=== PATIENT | female | born 1930 | race Caucasian/White ===

== ENCOUNTER → 2016-09-20 | Outpatient (CLI) | payer MEDICARE, BC ==
[~2016-09-20] MED LIST: ALPR-138 PO; AMBI10TA PO; ATEN1TAB74 PO; FIORINAL2 PO; K-TA10TA5 PO; LEVO88TA2 PO; SERT-129 PO
[2016-09-20 10:51] LABS: HEMATOCRIT 35.2 % (35.0-46.0); MEAN CELL VOLUME 93.1 FL (80.0-100.0); MEAN CORPUSCULAR HEMOGLOBIN 30.9 PG (27.0-34.0); MEAN CORPUSCULAR HGB CONC 33.2 % (32.0-36.0); PLATELET COUNT 244 TH/MM3 (150-450); RED BLOOD COUNT 3.78 MIL/MM3 (4.00-5.30); RED CELL DISTRIBUTION WIDTH 14.7 % (11.6-17.2); REVIEW FLAG FINAL; WHITE BLOOD COUNT 4.6 TH/MM3 (4.0-11.0)
[2016-09-20 11:35] LABS: ALKALINE PHOSPHATASE 62 U/L (45-117); ALT (GPT) 13 U/L (10-53); ANION GAP 6 MEQ/L (5-15); AST (GOT) 10 U/L (15-37); BICARBONATE 29.5 MEQ/L (21.0-32.0); BLOOD UREA NITROGEN 22 MG/DL (7-18); CHLORIDE 106 MEQ/L (98-107); FREE T4 0.93 NG/DL (0.76-1.46); GLOMERULAR FILTRATION RATE 47 ML/MIN (>89); GLUCOSE,FASTING 92 MG/DL (74-99); HDL CHOLESTEROL 82.5 MG/DL (40.0-60.0); LDL CHOLESTEROL 105 MG/DL (0-99); LDL CHOLESTEROL DIRECT 113 MG/DL (0-99); POTASSIUM 4.5 MEQ/L (3.5-5.1); SODIUM (NA) 141 MEQ/L (136-145); TOTAL BILIRUBIN ADULT 0.2 MG/DL (0.2-1.0)
== END ==
LOC: PLAB 07:41
PROVIDERS: ATTEND Family Medicine
DX: E78.4 Other hyperlipidemia (principal); I10 Essential (primary) hypertension; E03.8 Other specified hypothyroidism
CPT/HCPCS: 36415; 80053; 80061; 83721; 84439; 84443; 85027

== ENCOUNTER → 2016-12-02 | Outpatient (CLI) | payer MEDICARE, BC ==
[2016-12-02 13:22] LABS: HEMATOCRIT 36.4 % (35.0-46.0); MEAN CELL VOLUME 93.2 FL (80.0-100.0); MEAN CORPUSCULAR HGB CONC 32.2 % (32.0-36.0); PLATELET COUNT 279 TH/MM3 (150-450); RED BLOOD COUNT 3.91 MIL/MM3 (4.00-5.30); RED CELL DISTRIBUTION WIDTH 13.6 % (11.6-17.2); REVIEW FLAG FINAL; WHITE BLOOD COUNT 6.6 TH/MM3 (4.0-11.0)
[2016-12-02 13:49] LABS: WESTERGREN SEDIMENTATION RATE 35 mm/hr (0-30)
[2016-12-02 13:51] LABS: ANION GAP 7 MEQ/L (5-15); AST (GOT) 11 U/L (15-37); BICARBONATE 27.6 MEQ/L (21.0-32.0); BLOOD UREA NITROGEN 15 MG/DL (7-18); CHLORIDE 104 MEQ/L (98-107); GLOMERULAR FILTRATION RATE 72 ML/MIN (>89); GLUCOSE,FASTING 90 MG/DL (74-99); POTASSIUM 4.2 MEQ/L (3.5-5.1); SODIUM (NA) 139 MEQ/L (136-145)
[2016-12-02 14:03] LABS: ALKALINE PHOSPHATASE 75 U/L (45-117); ALT (GPT) 12 U/L (10-53); FREE T4 1.03 NG/DL (0.76-1.46); HDL CHOLESTEROL 79.5 MG/DL (40.0-60.0); LDL CHOLESTEROL 101 MG/DL (0-99); LDL CHOLESTEROL DIRECT 101 MG/DL (0-99); TOTAL BILIRUBIN ADULT 0.4 MG/DL (0.2-1.0)
[2016-12-02 17:18] LABS: HEMOGLOBIN A1a 0.8 %; HEMOGLOBIN A1b 1.6 %; HEMOGLOBIN LA1C 2.2 %; HEMOGLOBIN P3 5.5 %
== END ==
LOC: PLAB 11:12
PROVIDERS: ATTEND Family Medicine
DX: E78.2 Mixed hyperlipidemia (principal); I12.9 Hypertensive chronic kidney disease with stage 1 through stage 4 chronic kidney disease, or unspecified chronic kidney disease; N18.3 Chronic kidney disease, stage 3 (moderate); E03.8 Other specified hypothyroidism; R73.01 Impaired fasting glucose; M35.9 Systemic involvement of connective tissue, unspecified
CPT/HCPCS: 36415; 80053; 80061; 83036; 83721; 84439; 84443; 85027; 85652

== ENCOUNTER → 2017-02-02 | Outpatient (CLI) | payer MEDICARE, BC | LOC: PLAB 10:06 | PROVIDERS: ATTEND Family Medicine | DX: M35.3 Polymyalgia rheumatica (principal) | CPT/HCPCS: 36415; 85652; 86140 ==

== ENCOUNTER → 2017-02-17 | Outpatient (CLI) | payer MEDICARE, BC | LOC: PLAB 08:29 | PROVIDERS: ATTEND Family Medicine | DX: M35.5 Multifocal fibrosclerosis (principal) | CPT/HCPCS: 36415; 86140 ==

== ENCOUNTER → 2017-04-04 | Outpatient (CLI) | payer MEDICARE, BC | LOC: PLAB 10:03 | PROVIDERS: ATTEND Family Medicine | DX: M35.3 Polymyalgia rheumatica (principal) | CPT/HCPCS: 36415; 86140 ==

== ENCOUNTER → 2017-05-04 | Outpatient (CLI) | payer MEDICARE, BC ==
[2017-05-04 13:48] LABS: HEMATOCRIT 38.1 % (35.0-46.0); HEMOGLOBIN 12.9 GM/DL (11.6-15.3); MEAN CELL VOLUME 92.1 FL (80.0-100.0); MEAN CORPUSCULAR HGB CONC 33.7 % (32.0-36.0); MEAN PLATELET VOLUME 8.5 FL (7.0-11.0); PLATELET COUNT 280 TH/MM3 (150-450); RED BLOOD COUNT 4.14 MIL/MM3 (4.00-5.30); RED CELL DISTRIBUTION WIDTH 15.8 % (11.6-17.2); WHITE BLOOD COUNT 5.3 TH/MM3 (4.0-11.0)
[2017-05-04 13:56] LABS: ALBUMIN 3.4 GM/DL (3.4-5.0); AST (GOT) 17 U/L (15-37); BICARBONATE 27.9 MEQ/L (21.0-32.0); BLOOD UREA NITROGEN 23 MG/DL (7-18); CALCIUM 9.5 MG/DL (8.5-10.1); CHLORIDE 102 MEQ/L (98-107); CREATININE 0.86 MG/DL (0.50-1.00); GLOMERULAR FILTRATION RATE 62 ML/MIN (>89); GLUCOSE,FASTING 89 MG/DL (74-99); SODIUM (NA) 137 MEQ/L (136-145)
[2017-05-04 13:57] LABS: CHOLESTEROL 227 MG/DL (120-200)
[2017-05-04 14:07] LABS: ALKALINE PHOSPHATASE 60 U/L (45-117); ALT (GPT) 17 U/L (10-53); CHOLESTEROL/ HDL RATIO 2.44 RATIO; FREE T4 1.09 NG/DL (0.76-1.46); HDL CHOLESTEROL 92.8 MG/DL (40.0-60.0); LDL CHOLESTEROL 121 MG/DL (0-99); LDL CHOLESTEROL DIRECT 120 MG/DL (0-99); TOTAL BILIRUBIN ADULT 0.2 MG/DL (0.2-1.0); TOTAL PROTEIN 7.2 GM/DL (6.4-8.2); TRIGLYCERIDES 67 MG/DL (42-150)
== END ==
LOC: PLAB 09:02
PROVIDERS: ATTEND Family Medicine
DX: E78.2 Mixed hyperlipidemia (principal); I10 Essential (primary) hypertension; E03.8 Other specified hypothyroidism; R73.01 Impaired fasting glucose; M35.3 Polymyalgia rheumatica
CPT/HCPCS: 36415; 80053; 80061; 83036; 83721; 84439; 84443; 85027; 86140

== ENCOUNTER → 2017-07-21 | Outpatient (CLI) | payer MEDICARE, BC ==
[2017-07-21 13:41] LABS: HEMATOCRIT 40.4 % (35.0-46.0); HEMOGLOBIN 13.2 GM/DL (11.6-15.3); MEAN CELL VOLUME 94.2 FL (80.0-100.0); MEAN CORPUSCULAR HEMOGLOBIN 30.6 PG (27.0-34.0); MEAN CORPUSCULAR HGB CONC 32.5 % (32.0-36.0); MEAN PLATELET VOLUME 8.3 FL (7.0-11.0); PLATELET COUNT 311 TH/MM3 (150-450); RED BLOOD COUNT 4.29 MIL/MM3 (4.00-5.30); RED CELL DISTRIBUTION WIDTH 15.3 % (11.6-17.2); WHITE BLOOD COUNT 7.9 TH/MM3 (4.0-11.0)
[2017-07-21 13:49] LABS: ALBUMIN 3.7 GM/DL (3.4-5.0); AST (GOT) 16 U/L (15-37); BICARBONATE 29.7 MEQ/L (21.0-32.0); BLOOD UREA NITROGEN 28 MG/DL (7-18); CALCIUM 9.3 MG/DL (8.5-10.1); CHLORIDE 104 MEQ/L (98-107); CREATININE 1.13 MG/DL (0.50-1.00); GLOMERULAR FILTRATION RATE 45 ML/MIN (>89); GLUCOSE,FASTING 83 MG/DL (74-99); SODIUM (NA) 140 MEQ/L (136-145)
[2017-07-21 13:58] LABS: ALKALINE PHOSPHATASE 89 U/L (45-117); ALT (GPT) 18 U/L (10-53); C-REACTIVE PROTEIN 0.68 MG/DL (0.00-0.30); CHOLESTEROL 228 MG/DL (120-200); CHOLESTEROL/ HDL RATIO 2.75 RATIO; FREE T4 1.12 NG/DL (0.76-1.46); HDL CHOLESTEROL 82.8 MG/DL (40.0-60.0); LDL CHOLESTEROL 131 MG/DL (0-99); LDL CHOLESTEROL DIRECT 133 MG/DL (0-99); TOTAL BILIRUBIN ADULT 0.5 MG/DL (0.2-1.0); TOTAL PROTEIN 7.5 GM/DL (6.4-8.2); TRIGLYCERIDES 72 MG/DL (42-150)
== END ==
LOC: PLAB 09:04
PROVIDERS: ATTEND Family Medicine
DX: E78.2 Mixed hyperlipidemia (principal); I10 Essential (primary) hypertension; E03.8 Other specified hypothyroidism; M35.3 Polymyalgia rheumatica
CPT/HCPCS: 36415; 80053; 80061; 83721; 84439; 84443; 85027; 86140

== ENCOUNTER 2017-08-31 20:37 | Inpatient (IN) | payer MEDICARE, BC ==
[2017-08-31 20:40] VITALS: BP 164/79; PULSE 95; RESP 20; TEMP 99.7; O2SAT 97
[2017-08-31] MEDS ORDERED: SODIUM CHLOR 0.9% 1000 ML INJ 1,000 ML IV SCH (20:45)
--- NOTE | 2017-08-31 20:57 | PD ---
HPI Chief Complaint: Fall Time Seen by Provider: 20:48 Travel History International Travel<30 days: No Contact w/Intl Traveler<30days: No Traveled to known affect area: No History of Present Illness HPI 87-year-old female presents to the emergency department by EMS transport from home for evaluation of possible head injury neck injury hip injury status post unwitnessed fall at some unknown time as last seen normal last evening prior to being found by her grandson who is a rotary surface grinder die cast technician this evening. Upon initial evaluation by bartolome patient's GCS was 14 which is atypical for her she typically is very alert oriented to person place time and events with a GCS of 15. Per rotary surface grinder evaluation patient was noted upon their arrival to have a room air O2 saturation of 80% which only increased to 88% on 2 L and was placed on 6 L to improve her saturations to 93%. No history of cardiac disease or pulmonary disease. Unknown downtime patient was found on her left side per report and due to fall history placed in cervical collar but not based on long board. Patient has history of migraine hypertension dyslipidemia and hypothyroidism. Patient rates overall pain as moderate. Patient denies head pain chest pain or abdominal pain. Per rotary surface grinder report patient was found in sinus rhythm with mild tachycardia. Per rotary surface grinder report grandson related patient has had recent back injury within the past 2 months and was placed on pain medication which when reviewing the medicine bottle only identified a few of the tablets to be missing. PFSH Past Medical History Narrative Medical Arthritis depression dyslipidemia hypertension hypothyroidism Arthritis: Yes Asthma: No Autoimmune Disease: No Blood Disorders: No Depression: Yes Heart Rhythm Problems: No Cancer: No Cardiovascular Problems: No High Cholesterol: Yes Chest Pain: No Congestive Heart Failure: No COPD: No Cerebrovascular Accident: No Diabetes: No Diminished Hearing: No Endocrine: Yes (THYROIDECTOMY) Gastrointestinal Disorders: Yes GERD: Yes Genitourinary: No Headaches: Yes Hepatitis: No Hiatal Hernia: Yes (GERD) Hypertension: Yes Immune Disorder: No Musculoskeletal: Yes Neurologic: Yes Psychiatric: Yes Respiratory: No Immunizations Current: Yes Myocardial Infarction: No Seizures: No Shingles: Yes Thyroid Disease: Yes Ulcer: Yes (GASTRIC) Menopausal: Yes Past Surgical History Abdominal Surgery: Yes (HERNIA UMBILICAL) AICD: No Body Medical Devices: INTER STEM Endocrine Surgery: Yes (HEMITHYROIDECTOMY) Eye Surgery: Yes (MARIA ANTONIA. CATARACAT EXTRACT.) Genitourinary Surgery: Yes (bladder lift) Gynecologic Surgery: Yes (HYSTERECTOMY) Hysterectomy: Yes Joint Replacement: Yes (BILATERAL KNEE REPLACEMENT) Pacemaker: No Other Surgery: Yes (partial thyroid removed) Social History Alcohol Use: No Tobacco Use: No Substance Use: No Allergies-Medications (Allergen,Severity, Reaction): Uncoded Allergies: STATINS (Adverse Reaction, Severe, Nausea, muscle pain, 11/29/15) Reported Meds & Prescriptions Reported Meds & Active Scripts Active Reported Potassium Chloride ER (Potassium Chloride) 10 Meq Cap 10 Meq PO DAILY Ambien (Zolpidem Tartrate) 10 Mg Tab 10 Mg PO HS PRN Sertraline (Sertraline HCl) 100 Mg Tab 100 Mg PO DAILY Levothyroxine (Levothyroxine Sodium) 88 Mcg Tab 88 Mcg PO DAILY Atenolol 50 Mg Tab 50 Mg PO DAILY Tylenol-Codeine #4 (Acetaminophen-Codeine) 300-60 mg Tab 1 Tab PO Q4H PRN Xanax (Alprazolam) 0.25 Mg Tab 0.25 Mg PO HS PRN Review of Systems ROS Limitations: Poor Historian Except as stated in HPI: all other systems reviewed are Neg General / Constitutional: No: Fever HENT: No: Congestion Cardiovascular: No: Chest Pain or Discomfort Respiratory: No: Shortness of Breath Gastrointestinal: No: Abdominal Pain Genitourinary: No: Flank Pain Musculoskeletal: Positive: Pain (left hip and mid back) Skin: No Rash Neurologic: Positive: Weakness Psychiatric: No: Anxiety Hematologic/Lymphatic: No: Easy Bruising Physical Exam Narrative GENERAL: Well-developed elderly female in no acute distress no respiratory distress cervical collar in place; GCS 15 SKIN: Warm and dry. HEAD: Atraumatic. Normocephalic. EYES: Pupils equal and round. No scleral icterus. No injection or drainage. ENT: No nasal bleeding or discharge. Mucous membranes pink and moist. NECK: Trachea midline. No JVD. CARDIOVASCULAR: Regular rate and rhythm. RESPIRATORY: No accessory muscle use. Clear to auscultation. Breath sounds equal bilaterally. GASTROINTESTINAL: Abdomen soft, non-tender, nondistended. Hepatic and splenic margins not palpable. MUSCULOSKELETAL: Extremities without clubbing, cyanosis, or edema. No obvious deformities. Tenderness left hip. No limb length discrepancy. Bilateral dorsalis pedis pulses 2++=. Ecchymosis left upper arm, distally neurovascularly intact, radial pulse 2+, capillary refill less than 2 seconds. NEUROLOGICAL: Awake and alert. No obvious cranial nerve deficits. Motor grossly within normal limits. Five out of 5 muscle strength in the arms and legs. Normal speech. PSYCHIATRIC: Appropriate mood and affect; insight and judgment normal. Data Data Last Documented VS Vital Signs Date Time Temp Pulse Resp B/P (MAP) Pulse Ox O2 Delivery O2 Flow Rate FiO2 08/31/17 23:22 88 18 169/81 (110) 96 Nasal Cannula 3.00 08/31/17 20:40 99.7 Orders Orders Electrocardiogram (08/31/17 20:45) Ammonia (08/31/17 20:45) Complete Blood Count With Diff (08/31/17 20:45) Comprehensive Metabolic Panel (08/31/17 20:45) Creatine Kinase (Cpk) (08/31/17 20:45) Prothrombin Time / Inr (Pt) (08/31/17 20:45) Act Partial Throm Time (Ptt) (08/31/17 20:45) Troponin I (08/31/17 20:45) Thyroid Stimulating Hormone (08/31/17 20:45) Urinalysis - C+S If Indicated (08/31/17 20:45) Lactic Acid Sepsis Protocol (08/31/17 20:45) Blood Culture (08/31/17 20:45) Chest, Single Ap (08/31/17 20:45) Ct Brain W/O Iv Contrast(Rout) (08/31/17 20:45) Sodium Chlor 0.9% 1000 Ml Inj (Ns 1000 M (08/31/17 20:45) Ct Cerv Spine W/O Contrast (08/31/17 ) Femur (Ap & Lat/2vws) (08/31/17 ) Us Leg Venous Doppler (08/31/17 ) Spine, Thoracic - Lateral Only (08/31/17 ) D-Dimer (08/31/17 20:48) Pelvis, Ap Only (Routine) (08/31/17 ) CKMB (08/31/17 20:50) CKMB% (08/31/17 20:50) Cath For Specimen (08/31/17 22:23) Sodium Chlorid 0.9% 500 Ml Inj (Ns 500 M (08/31/17 22:30) Cefepime Inj (Maxipime Inj) (08/31/17 22:30) Myoglobin, Urine (08/31/17 22:27) Urinary Catheter Insert/Apply (08/31/17 23:27) Sodium Chlorid 0.9% 500 Ml Inj (Ns 500 M (08/31/17 23:30) Atenolol (Tenormin) (09/01/17 09:00) Levothyroxine (Synthroid) (09/01/17 07:00) Admit Order (Ed Use Only) (08/31/17 ) Production Tester / Telemetry REYNA.Q8H (08/31/17 23:44) Diet Heart Healthy (09/01/17 Breakfast) Activity Oob With Assistance (08/31/17 23:44) Notify Dr: Other (08/31/17 23:44) Magnesium (Mg) (08/31/17 20:50) Labs Laboratory Tests Test 08/31/17 20:50 White Blood Count 14.9 TH/MM3 Red Blood Count 4.03 MIL/MM3 Hemoglobin 12.7 GM/DL Hematocrit 37.5 % Mean Corpuscular Volume 93.1 FL Mean Corpuscular Hemoglobin 31.5 PG Mean Corpuscular Hemoglobin Concent 33.9 % Red Cell Distribution Width 14.7 % Platelet Count 258 TH/MM3 Mean Platelet Volume 8.3 FL Neutrophils (%) (Auto) 88.9 % Lymphocytes (%) (Auto) 2.1 % Monocytes (%) (Auto) 8.5 % Eosinophils (%) (Auto) 0.0 % Basophils (%) (Auto) 0.5 % Neutrophils # (Auto) 13.2 TH/MM3 Lymphocytes # (Auto) 0.3 TH/MM3 Monocytes # (Auto) 1.3 TH/MM3 Eosinophils # (Auto) 0.0 TH/MM3 Basophils # (Auto) 0.1 TH/MM3 CBC Comment AUTO DIFF Differential Total Cells Counted 100 Neutrophils % (Manual) 84 % Band Neutrophils % 7 % Lymphocytes % 1 % Monocytes % 5 % Basophils % 1 % Neutrophils # (Manual) 13.9 TH/MM3 Metamyelocytes 1 % Promyelocytes 1 % Differential Comment FINAL DIFF MANUAL Toxic Granulation 1+ Platelet Estimate NORMAL Platelet Morphology Comment NORMAL Prothrombin Time 13.6 SEC Prothromb Time International Ratio 1.3 RATIO Activated Partial Thromboplast Time 27.3 SEC D-Dimer Quantitative (PE/DVT) 29.67 MG/L FEU Blood Urea Nitrogen 25 MG/DL Creatinine 0.85 MG/DL Random Glucose 141 MG/DL Total Protein 7.0 GM/DL Albumin 3.3 GM/DL Calcium Level 9.3 MG/DL Magnesium Level 1.9 MG/DL Alkaline Phosphatase 255 U/L Aspartate Amino Transf (AST/SGOT) 133 U/L Alanine Aminotransferase (ALT/SGPT) 103 U/L Total Bilirubin 0.9 MG/DL Sodium Level 136 MEQ/L Potassium Level 3.9 MEQ/L Chloride Level 101 MEQ/L Carbon Dioxide Level 27.9 MEQ/L Anion Gap 7 MEQ/L Estimat Glomerular Filtration Rate 63 ML/MIN Lactic Acid Level 1.9 mmol/L Ammonia LESS THAN 10 MCMOL/L Total Creatine Kinase 3401 U/L Creatine Kinase MB 39.0 NG/ML Creatine Kinase MB % 1.1 % Troponin I 0.04 NG/ML Thyroid Stimulating Hormone 3rd Gen 0.896 uIU/ML MDM Medical Decision Making Medical Screen Exam Complete: Yes Emergency Medical Condition: Yes Medical Record Reviewed: Yes Interpretation(s) EKG normal sinus rhythm rate 95 artifact present occasional PAC left axis deviation and intraventricular conduction delay mild ST segment depression septally V1 V2 no acute ST elevation Last Impressions Head CT [id number]/31/[id number] Signed Impressions: Service Date/Time: Thursday, August 31, 2017 21:14 - CONCLUSION: 1. Mild periventricular and subcortical white matter small vessel ischemic changes bilaterally. 2. 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 3. Mild diffuse atrophy. 4. No acute infarct, acute hemorrhage, mass effect or extra axial fluid collections. Maximino Sharif MD Chest X-Ray [id number]/31/[id number] Signed Impressions: Service Date/Time: Thursday, August 31, 2017 20:58 - CONCLUSION: No acute disease. Maximino Sharif MD Thoracic Spine X-Ray 08/31/17 0000 Signed Impressions: Service Date/Time: Thursday, August 31, 2017 21:06 - CONCLUSION: No definite compression fracture involving thoracic spine. Mild compression deformity involving an upper lumbar vertebral body of indeterminate age. Degenerative changes of the thoracic spine. Maximino Sharif MD Pelvis X-Ray 08/31/17 0000 Signed Impressions: Service Date/Time: Thursday, August 31, 2017 21:01 - CONCLUSION: Acute fractures along the left superior and inferior pubic rami. Maximino Sharif MD Lower Extremity Ultrasound 08/31/17 0000 Signed Impressions: Service Date/Time: Thursday, August 31, 2017 22:08 - CONCLUSION: No evidence of deep venous thrombosis within the left lower extremity. Maximino Sharif MD Femur X-Ray 08/31/17 0000 Signed Impressions: Service Date/Time: Thursday, August 31, 2017 21:02 - CONCLUSION: Acute fractures involving left superior and inferior pubic rami. Maximino Sharif MD Cervical Spine CT 08/31/17 0000 Signed Impressions: Service Date/Time: Thursday, August 31, 2017 21:14 - CONCLUSION: No acute fracture or prevertebral soft tissue swelling. Moderate bilateral foraminal narrowing at C3-4, C4-5 and C5-6 and mild bilateral foraminal narrowing at C6- 7. Diffuse cervical spondylosis. Biapical fibrotic scarring. Maximino Sharif MD CBC & BMP Diagram 08/31/17 20:50 Total Protein 7.0, Albumin 3.3 L, Calcium Level 9.3, Magnesium Level 1.9, Alkaline Phosphatase 255 H, Aspartate Amino Transf (AST/SGOT) 133 H, Alanine Aminotransferase (ALT/SGPT) 103 H, Total Bilirubin 0.9 CT pulmonary angiogram: no PE, pulmonary HTN findings Differential Diagnosis Fall, syncope, seizure, arrhythmia, PE, ACS, MO, CVA, ICH, sepsis, UTI, pneumonia, fracture, contusion sprain strain, anemia Narrative Course Patient placed on case monitor IV access obtained specimens collected and sent for resulting CT brain noncontrast reveals no acute abnormality no bleed or skull fracture CT cervical spine reveals multiple levels of degenerative disc disease but no acute fracture or soft tissue swelling cervical collar removed Chest x-ray reveals no infiltrate no rib fracture no effusion no pneumothorax; pelvis x-ray reveals superior and inferior rami fractures on the left without acetabular or femur fracture CBC automated differential shows mild elevation of white count with 7% bands patient administered cefepime after blood cultures obtain lactic acid is not elevated remains 1.9 Metabolic panel is remarkable for normal creatinine and identified on cardiac enzymes to have a troponin I of 0.04 still within normal range however CK total is 3400 markedly elevated consistent with rhabdomyolysis Urinary catheter placed and no urine output therefore patient given boluses of normal saline and d-dimer remains pending we will pursue imaging study for PE in view of rotary surface grinder report of initial room air O2 saturation of 80% patient maintaining O2 saturation 96-97% on 3 L/min nasal cannula attempt to titrate to room air and assess saturations at that time. Physician Communication Physician Communication discussed with Dr Salcido --- Admit Diagnosis Primary Impression: Rhabdomyolysis Qualified Codes: T79.6XXA - Traumatic ischemia of muscle, initial encounter Additional Impressions: Pelvic fracture Qualified Codes: S32.512A - Fracture of superior rim of left pubis, initial encounter for closed fracture Hypoxemia Admitting Information Admitting Physician Requests: Admit Ariane Simmons MD Aug 31, 2017 20:57
[2017-08-31 21:20] LABS: AUTOMATED NEUTROPHIL # 13.2 TH/MM3 (1.8-7.7); BASOPHIL # 0.1 TH/MM3 (0-0.2); BASOPHIL % 0.5 % (0.0-2.0); HEMATOCRIT 37.5 % (35.0-46.0); HEMOGLOBIN 12.7 GM/DL (11.6-15.3); LYMPH % 2.1 % (9.0-44.0); LYMPHOCYTE # 0.3 TH/MM3 (1.0-4.8); MEAN CELL VOLUME 93.1 FL (80.0-100.0); MEAN CORPUSCULAR HEMOGLOBIN 31.5 PG (27.0-34.0); MEAN CORPUSCULAR HGB CONC 33.9 % (32.0-36.0); MEAN PLATELET VOLUME 8.3 FL (7.0-11.0); MONO % 8.5 % (0.0-8.0); MONOCYTE # 1.3 TH/MM3 (0-0.9); NEUT % 88.9 % (16.0-70.0); PLATELET COUNT 258 TH/MM3 (150-450); RED BLOOD COUNT 4.03 MIL/MM3 (4.00-5.30); RED CELL DISTRIBUTION WIDTH 14.7 % (11.6-17.2); WHITE BLOOD COUNT 14.9 TH/MM3 (4.0-11.0)
--- NOTE | 2017-08-31 21:24 | RADRPT ---
EXAM DATE/TIME: 08/31/2017 21:14 [facility] COMPARISON: No previous studies available for comparison. INDICATIONS : Patient fell, altered mental status. RADIATION DOSE: 32.99 CTDIvol (mGy) MEDICAL HISTORY : Hypertension. SURGICAL HISTORY : None. ENCOUNTER: Initial ACUITY: 1 day PAIN SCALE: 0/10 LOCATION: cranial TECHNIQUE: Multiple contiguous axial images were obtained of the head. Using automated exposure control and adj ustment of the mA and/or kV according to patient size, radiation dose was kept as low as reasonably a chievable to obtain optimal diagnostic quality images. DICOM format image data is available electro nically for review and comparison. FINDINGS: CEREBRUM: Mild periventricular and subcortical white matter small vessel ischemic changes are noted bilaterally . Mild diffuse atrophy is noted. An old infarct involving the left thalamus is noted. No acute infarc t, acute hemorrhage, midline shift or extra axial fluid collections are noted. POSTERIOR FOSSA: The cerebellum and brainstem are intact. The 4th ventricle is midline. The cerebellopontine angle i s unremarkable. EXTRACRANIAL: The visualized portion of the orbits is intact. SKULL: The calvaria is intact. No evidence of skull fracture. CONCLUSION: 1. Mild periventricular and subcortical white matter small vessel ischemic changes bilaterally. 2. 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 3. Mild diffuse atrophy. 4. No acute infarct, acute hemorrhage, mass effect or extra axial fluid collections. Maximino Sharif MD on August 31, 2017 at 21:19 Board Certified Radiologist. This report was verified electronically.
--- NOTE | 2017-08-31 21:28 | RADRPT ---
EXAM DATE/TIME: 08/31/2017 20:58 [facility] COMPARISON: No previous studies available for comparison. INDICATIONS : Pain post fall. MEDICAL HISTORY : Hypothyroidism. Hypertension. SURGICAL HISTORY : Thyroidectomy. Hysterectomy. ENCOUNTER: Initial ACUITY: 1 day PAIN SCORE: 9/10 LOCATION: chest. FINDINGS: A single view of the chest demonstrates the lungs to be symmetrically aerated without evidence of mas s, infiltrate or effusion. The cardiomediastinal contours are unremarkable. Osseous structures are intact. CONCLUSION: No acute disease. Maximino Sharif MD on August 31, 2017 at 21:27 Board Certified Radiologist. This report was verified electronically.
[2017-08-31 21:31] LABS: INTERNATIONAL NORMALIZED RATIO 1.3 RATIO; PROTHROMBIN TIME - PATIENT 13.6 SEC (9.8-11.6)
[2017-08-31 21:39] LABS: ALBUMIN 3.3 GM/DL (3.4-5.0); ALT (GPT) 103 U/L (10-53); AST (GOT) 133 U/L (15-37); BICARBONATE 27.9 MEQ/L (21.0-32.0); BLOOD UREA NITROGEN 25 MG/DL (7-18); CALCIUM 9.3 MG/DL (8.5-10.1); CHLORIDE 101 MEQ/L (98-107); CREATININE 0.85 MG/DL (0.50-1.00); GLOMERULAR FILTRATION RATE 63 ML/MIN (>89); GLUCOSE,RANDOM 141 MG/DL (74-106); SODIUM (NA) 136 MEQ/L (136-145)
--- NOTE | 2017-08-31 21:40 | RADRPT ---
EXAM DATE/TIME: 08/31/2017 21:01 [facility] COMPARISON: No previous studies available for comparison. INDICATIONS : Pelvis pain post fall. MEDICAL HISTORY : Hypothyroidism. Hypertension. SURGICAL HISTORY : Thyroidectomy. Hysterectomy. Pain stimulator. ENCOUNTER: Initial ACUITY: 1 day PAIN SCORE: 9/10 LOCATION: pelvis. FINDINGS: Acute fractures involving the left superior and inferior pubic rami are noted. Degenerative changes a nd scoliosis of the lower lumbar spine are noted. CONCLUSION: Acute fractures along the left superior and inferior pubic rami. Maximino Sharif MD on August 31, 2017 at 21:38 Board Certified Radiologist. This report was verified electronically.
--- NOTE | 2017-08-31 21:41 | RADRPT ---
EXAM DATE/TIME: 08/31/2017 21:02 [facility] COMPARISON: No previous studies available for comparison. INDICATIONS : Left femur pain post fall. MEDICAL HISTORY : Hypothyroidism. Hypertension. SURGICAL HISTORY : Thyroidectomy. Hysterectomy. ENCOUNTER: Initial ACUITY: 1 day PAIN SCORE: 9/10 LOCATION: Left femur. FINDINGS: Acute fractures involving left superior and inferior pubic rami are noted. No femur fracture is noted . CONCLUSION: Acute fractures involving left superior and inferior pubic rami. Maximino Sharif MD on August 31, 2017 at 21:39 Board Certified Radiologist. This report was verified electronically.
--- NOTE | 2017-08-31 21:42 | RADRPT ---
EXAM DATE/TIME: 08/31/2017 21:06 [facility] COMPARISON: No previous studies available for comparison. INDICATIONS : Upper back pain post fall. MEDICAL HISTORY : Hypothyroidism. Hypertension. SURGICAL HISTORY : Thyroidectomy. Hysterectomy. ENCOUNTER: Initial ACUITY: 1 day PAIN SCORE: 8/10 LOCATION: thoracic spine. FINDINGS: Degenerative changes are noted throughout the thoracic spine. Mild compression deformity involving an upper lumbar vertebral body is noted but is indeterminate in age. No definite compression fracture i nvolving the thoracic spine is noted. CONCLUSION: No definite compression fracture involving thoracic spine. Mild compression deformity involving an upper lumbar vertebral body of indeterminate age. Degenerative changes of the thoracic spine. Maximino Sharif MD on August 31, 2017 at 21:40 Board Certified Radiologist. This report was verified electronically.
--- NOTE | 2017-08-31 21:50 | RADRPT ---
EXAM DATE/TIME: 08/31/2017 21:14 [facility] COMPARISON: No previous studies available for comparison. INDICATIONS : Patient fell, neck pain. RADIATION DOSE: 21.22 CTDIvol (mGy) MEDICAL HISTORY : Hypertension. SURGICAL HISTORY : None. ENCOUNTER: Initial ACUITY: 1 day PAIN SCALE: 5/10 LOCATION: neck TECHNIQUE: Volumetric scanning of the cervical spine was performed. Multiplanar reconstructions in the sagittal, coronal and oblique axial planes were performed. Using automated exposure control and adjustment o f the mA and/or kV according to patient size, radiation dose was kept as low as reasonably achievable to obtain optimal diagnostic quality images. DICOM format image data is available electronically f or review and comparison. FINDINGS: There's no acute fracture or prevertebral soft tissue swelling. Diffuse cervical spondylosis is noted at all levels. The bony relationship and alignment between C1 and C2 is well maintained. Mild scolio sis is noted. Biapical fibrotic scarring is noted. Moderate bilateral foraminal narrowing is noted at C3-4, C4-5 and C5-6 and mild bilateral foraminal narrowing is noted at C6-7. C2-C3: The bony spinal canal is normal in size. No evidence of disc bulge or herniation. The neural forami na are bilaterally patent. C3-C4: The bony spinal canal is normal in size. No evidence of disc bulge or herniation. Moderate bilateral foraminal narrowing is noted. C4-C5: The bony spinal canal is normal in size. No evidence of disc bulge or herniation. Moderate bilateral foraminal narrowing is noted C5-C6: The bony spinal canal is normal in size. No evidence of disc bulge or herniation. Moderate bilateral foraminal narrowing is noted. C6-C7: The bony spinal canal is normal in size. No evidence of disc bulge or herniation. Mild bilateral for aminal narrowing is noted. C7-T1: The bony spinal canal is normal in size. No evidence of disc bulge or herniation. The neural forami na are bilaterally patent. CONCLUSION: No acute fracture or prevertebral soft tissue swelling. Moderate bilateral foraminal narrowing at C3-4, C4-5 and C5-6 and mild bilateral foraminal narrowing at C6-7. Diffuse cervical spo ndylosis. Biapical fibrotic scarring. Maximino Sharif MD on August 31, 2017 at 21:46 Board Certified Radiologist. This report was verified electronically.
[2017-08-31 21:54] LABS: ALKALINE PHOSPHATASE 255 U/L (45-117); TOTAL BILIRUBIN ADULT 0.9 MG/DL (0.2-1.0); TROPONIN I 0.04 NG/ML (0.02-0.05)
[2017-08-31 22:01] LABS: BANDS 7 % (0-6); BASOPHILS 1 % (0-2); LYMPHOCYTES 1 % (9-44); METAMYELOCYTES 1 % (0-1); MONOCYTES 5 % (0-8); NEUTROPHIL # MANUAL DIFF 13.9 TH/MM3 (1.8-7.7); POLYS (SEG NEUTROPHILS) 84 % (16-70); PROMYELOCYTES 1 % (0-0); TOXIC GRANULATION 1+ (NORMAL)
[2017-08-31] MEDS ORDERED: LEVO88TA2 PO (22:02)
[2017-08-31] MEDS ORDERED: ATEN50TA PO (22:02)
[2017-08-31] MEDS ORDERED: TYLETAB36 PO (22:02)
[2017-08-31] MEDS ORDERED: ALPR.25 PO (22:02)
[2017-08-31] MEDS ORDERED: SERT-129 PO (22:02)
[2017-08-31] MEDS ORDERED: AMBI10TA PO (22:02)
[2017-08-31] MEDS ORDERED: POTA10CA PO (22:02)
[2017-08-31] MEDS ORDERED: CEFEPIME INJ 2,000 MG in SODIUM CHLORIDE 0.9% INJ 100 ML IV ONE (22:30)
[2017-08-31] MEDS ORDERED: SODIUM CHLORID 0.9% 500 ML INJ 500 ML IV ONE ×2 (22:30→23:30)
--- NOTE | 2017-08-31 22:31 | RADRPT ---
EXAM DATE/TIME: 08/31/2017 22:08 [facility] COMPARISON: No previous studies available for comparison. INDICATIONS : Left leg swelling. MEDICAL HISTORY : Hypercholesterolemia. Gastroesophageal reflux disease. Hypertension. Thyroid disease. Headaches. U lcer. Arthritis. Depression. Measles. Shingles. IBS. SURGICAL HISTORY : Hysterectomy. Thyroidectomy. Bilateral cataract removal. Umbilical hernia repair. Bladder lift. Jayson ateral knee replacement. ENCOUNTER: Initial ACUITY: 1 day PAIN SCORE: 0/10 LOCATION: Left leg. TECHNIQUE: Venous ultrasound of the leg was performed from the inguinal ligament to the proximal calf. Real-brandon e, color Doppler and spectral tracing, compression and augmentation techniques were used. FINDINGS: There is normal compressibility of the deep venous system from the inguinal region to the proximal ca lf. No echogenic clot is seen in the lumen of the common femoral, femoral, popliteal, and posterior tibial veins. There is a normal response of the venous system to proximal and distal augmentation an d respiration. CONCLUSION: No evidence of deep venous thrombosis within the left lower extremity. Maximino Sharif MD on August 31, 2017 at 22:29 Board Certified Radiologist. This report was verified electronically.
[2017-08-31 23:22] VITALS: BP 169/81; PULSE 88; RESP 18; O2SAT 96
--- NOTE | 2017-08-31 23:45 | HHI.HP ---
HPI Service [facility] Primary Care Physician Unknown Admission Diagnosis Diagnoses: (1) Fall (2) Pelvic fracture (3) Rhabdomyolysis Chief Complaint: Found down Travel History International Travel<30 Days: No Contact w/Intl Traveler <30 Da: No Traveled to Known Affected Are: No History of Present Illness 87-year-old female with a medical history significant for hypertension, anxiety , irritable bowel syndrome status post implant placement brought in by EMS after the patient was found down by his daughter. Most of the history obtained from the patient's daughter. She reports that her mother is usually independent.She sustained a fracture of the lumbar spine a few weeks ago. She has been wearing a brace and using a walker. However, her daughter notes that over the past couple of weeks, she has been somewhat unsteady with periods of memory lapse. This morning she went to check on her and found her on the floor with a walker on top of her. Patient reports that she believes she was getting up to go to the bathroom and lost her balance and fell. She denied feeling lightheaded or experience chest pain prior to the fall. I reviewed her medications with her and her daughter at bedside. Apparently the patient was recently started on Tylenol 4. She is also noted to be on Xanax and 10 mg of Ambien at night. Currently she reports that she is hurting all over when she moves. She feels okay at rest. Patient was reportedly hypoxemic by EMS evaluation. She has been requiring supplemental oxygen. Review of Systems ROS Limitations: Clinical Condition Constitutional: DENIES: Fever, Chills Musculoskeletal: COMPLAINS OF: Joint pain, Muscle aches, Back pain Integumentary: DENIES: Rash Neurologic: COMPLAINS OF: Abnormal gait, Poor Balance, DENIES: Localized weakness Except as stated in HPI: all other systems reviewed are Neg Past Family Social History Past Medical History hypertension, anxiety, irritable bowel syndrome status post implant placement Past Surgical History Bilateral knee replacement Hemithyroidectomy Hysterectomy Reported Medications Reported Meds & Active Scripts Active Reported Potassium Chloride ER (Potassium Chloride) 10 Meq Cap 10 Meq PO DAILY Ambien (Zolpidem Tartrate) 10 Mg Tab 10 Mg PO HS PRN Sertraline (Sertraline HCl) 100 Mg Tab 100 Mg PO DAILY Levothyroxine (Levothyroxine Sodium) 88 Mcg Tab 88 Mcg PO DAILY Atenolol 50 Mg Tab 50 Mg PO DAILY Tylenol-Codeine #4 (Acetaminophen-Codeine) 300-60 mg Tab 1 Tab PO Q4H PRN Xanax (Alprazolam) 0.25 Mg Tab 0.25 Mg PO HS PRN Allergies: Uncoded Allergies: STATINS (Adverse Reaction, Severe, Nausea, muscle pain, 11/29/15) Family History Reviewed and found to be noncontributory. Social History No history of tobacco or alcohol use. Patient leaves next to her daughter. She is normally independent. Physical Exam Vital Signs Vital Signs Date Time Temp Pulse Resp B/P (MAP) Pulse Ox O2 Delivery O2 Flow Rate FiO2 08/31/17 23:22 88 18 169/81 (110) 96 Nasal Cannula 3.00 08/31/17 20:48 98 Nasal Cannula 4.00 08/31/17 20:40 99.7 95 20 164/79 (107) 97 Physical Exam GENERAL: Elderly and frail female in no acute distress. SKIN: No rashes, ecchymoses or lesions. Cool and dry. HEAD: Atraumatic. Normocephalic. No temporal or scalp tenderness. EYES: Pupils equal round and reactive. Extraocular motions intact. No scleral icterus. No injection or drainage. ENT: Nose without bleeding, purulent drainage or septal hematoma. Throat without erythema, tonsillar hypertrophy or exudate. Uvula midline. Airway patent. NECK: Trachea midline. No JVD or lymphadenopathy. Supple, nontender, no meningeal signs. CARDIOVASCULAR: Regular rate and rhythm without murmurs, gallops, or rubs. RESPIRATORY: Clear to auscultation. Breath sounds equal bilaterally. No wheezes , rales, or rhonchi. GASTROINTESTINAL: Abdomen soft, non-tender, nondistended. No hepato-splenomegaly , or palpable masses. No guarding. MUSCULOSKELETAL: Extremities without clubbing, cyanosis, or edema. Bilateral lower extremity range of motion limited secondary to pain. NEUROLOGICAL: Awake and alert. Generalized weakness but equal strength. Normal speech. Laboratory Laboratory Tests Test 08/31/17 20:50 White Blood Count 14.9 Red Blood Count 4.03 Hemoglobin 12.7 Hematocrit 37.5 Mean Corpuscular Volume 93.1 Mean Corpuscular Hemoglobin 31.5 Mean Corpuscular Hemoglobin Concent 33.9 Red Cell Distribution Width 14.7 Platelet Count 258 Mean Platelet Volume 8.3 Neutrophils (%) (Auto) 88.9 Lymphocytes (%) (Auto) 2.1 Monocytes (%) (Auto) 8.5 Eosinophils (%) (Auto) 0.0 Basophils (%) (Auto) 0.5 Neutrophils # (Auto) 13.2 Lymphocytes # (Auto) 0.3 Monocytes # (Auto) 1.3 Eosinophils # (Auto) 0.0 Basophils # (Auto) 0.1 CBC Comment AUTO DIFF Differential Total Cells Counted 100 Neutrophils % (Manual) 84 Band Neutrophils % 7 Lymphocytes % 1 Monocytes % 5 Basophils % 1 Neutrophils # (Manual) 13.9 Metamyelocytes 1 Promyelocytes 1 Differential Comment FINAL DIFF MANUAL Toxic Granulation 1+ Platelet Estimate NORMAL Platelet Morphology Comment NORMAL Prothrombin Time 13.6 Prothromb Time International Ratio 1.3 Activated Partial Thromboplast Time 27.3 Blood Urea Nitrogen 25 Creatinine 0.85 Random Glucose 141 Total Protein 7.0 Albumin 3.3 Calcium Level 9.3 Alkaline Phosphatase 255 Aspartate Amino Transf (AST/SGOT) 133 Alanine Aminotransferase (ALT/SGPT) 103 Total Bilirubin 0.9 Sodium Level 136 Potassium Level 3.9 Chloride Level 101 Carbon Dioxide Level 27.9 Anion Gap 7 Estimat Glomerular Filtration Rate 63 Lactic Acid Level 1.9 Ammonia LESS THAN 10 Total Creatine Kinase 3401 Creatine Kinase MB 39.0 Creatine Kinase MB % 1.1 Troponin I 0.04 Thyroid Stimulating Hormone 3rd Gen 0.896 Date/Time Source Procedure Growth Status 08/31/17 20:50 Blood Peripheral Aerobic Blood Culture Pending Received 08/31/17 20:50 Blood Peripheral Anaerobic Blood Culture Pending Received Result Diagram: 08/31/17204908/31/172049 Imaging Last Impressions Head CT 08/31/172044 Signed Impressions: Service Date/Time: Thursday, August 31, 2017 21:14 - CONCLUSION: 1. Mild periventricular and subcortical white matter small vessel ischemic changes bilaterally. 2. 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 3. Mild diffuse atrophy. 4. No acute infarct, acute hemorrhage, mass effect or extra axial fluid collections. Maximino Sharif MD Chest X-Ray 08/31/172044 Signed Impressions: Service Date/Time: Thursday, August 31, 2017 20:58 - CONCLUSION: No acute disease. Maximino Sharif MD Thoracic Spine X-Ray 08/31/17 0000 Signed Impressions: Service Date/Time: Thursday, August 31, 2017 21:06 - CONCLUSION: No definite compression fracture involving thoracic spine. Mild compression deformity involving an upper lumbar vertebral body of indeterminate age. Degenerative changes of the thoracic spine. Maximino Sharif MD Pelvis X-Ray 08/31/17 0000 Signed Impressions: Service Date/Time: Thursday, August 31, 2017 21:01 - CONCLUSION: Acute fractures along the left superior and inferior pubic rami. Maximino Sharif MD Lower Extremity Ultrasound 08/31/17 0000 Signed Impressions: Service Date/Time: Thursday, August 31, 2017 22:08 - CONCLUSION: No evidence of deep venous thrombosis within the left lower extremity. Maximino Sharif MD Femur X-Ray 08/31/17 0000 Signed Impressions: Service Date/Time: Thursday, August 31, 2017 21:02 - CONCLUSION: Acute fractures involving left superior and inferior pubic rami. Maximino Sharif MD Cervical Spine CT 08/31/17 0000 Signed Impressions: Service Date/Time: Thursday, August 31, 2017 21:14 - CONCLUSION: No acute fracture or prevertebral soft tissue swelling. Moderate bilateral foraminal narrowing at C3-4, C4-5 and C5-6 and mild bilateral foraminal narrowing at C6- 7. Diffuse cervical spondylosis. Biapical fibrotic scarring. Maximino Sharif MD Caprini VTE Risk Assessment Caprini VTE Risk Assessment: Mod/High Risk (score >= 2) Caprini Risk Assessment Model Point Value = 1 Point Value = 2 Point Value = 3 Point Value = 5 Age 41-60 Minor surgery BMI > 25 kg/m2 Swollen legs Varicose veins or History of unexplained or recurrent spontaneous Oral contraceptives or hormone replacement Sepsis (< 1 month) Serious lung disease, including pneumonia (< 1 month) Abnormal pulmonary function Acute myocardial infarction Congestive heart failure (< 1 month) History of inflammatory bowel disease Medical patient at bed rest Age 61-74 Arthroscopic surgery Major open surgery (> 45 min) Laparoscopic surgery (> 45 min) Malignancy Confined to bed (> 72 hours) Immobilizing plaster cast Central venous access Age >= 75 History of VTE Family history of VTE Factor V Leiden Prothrombin [id number] Lupus anticoagulant Anticardiolipin antibodies Elevated serum homocysteine Heparin-induced thrombocytopenia Other congenital or acquired thrombophilia Stroke (< 1 month) Elective arthroplasty Hip, pelvis, or leg fracture Acute spinal cord injury (< 1 month) Prophylaxis Regimen Total Risk Factor Score Risk Level Prophylaxis Regimen 0-1 Low Early ambulation 2 Moderate Order ONE of the following: *Sequential Compression Device (SCD) *Heparin 5000 units SQ BID 3-4 Higher Order ONE of the following medications: *Heparin 5000 units SQ TID *Enoxaparin/Lovenox 40 mg SQ daily (WT < 150 kg, CrCl > 30 mL/min) *Enoxaparin/Lovenox 30 mg SQ daily (WT < 150 kg, CrCl > 10-29 mL/min) *Enoxaparin/Lovenox 30 mg SQ BID (WT < 150 kg, CrCl > 30 mL/min) AND/OR *Sequential Compression Device (SCD) 5 or more Highest Order ONE of the following medications: *Heparin 5000 units SQ TID (Preferred with Epidurals) *Enoxaparin/Lovenox 40 mg SQ daily (WT < 150 kg, CrCl > 30 mL/min) *Enoxaparin/Lovenox 30 mg SQ daily (WT < 150 kg, CrCl > 10-29 mL/min) *Enoxaparin/Lovenox 30 mg SQ BID (WT < 150 kg, CrCl > 30 mL/min) AND *Sequential Compression Device (SCD) Assessment and Plan Problem List: (1) Fall ICD Code: W19.XXXA - Unspecified fall, initial encounter Plan: I suspect she fell secondary to gait issue from polypharmacy. She was recently started on Tylenol No. 4 in addition she was taking Ambien 10 mg at night and Xanax 0.5 mg at night. - Will need physical therapy once cleared by orthopedics and likely will need SNF placement for rehabilitation. (2) Pelvic fracture ICD Code: S32.9XXA - Fracture of unspecified parts of lumbosacral spine and pelvis, initial encounter for closed fracture Status: Acute Plan: Secondary to fall. Consult orthopedics for assistance Pain control. (3) Rhabdomyolysis ICD Code: M62.82 - Rhabdomyolysis Status: Acute Plan: Due to immobilization. Patient was found down. She received 1 L of IV fluid in the ED. Continue IV fluid and reassess the need to continue in the morning. Repeat CK in a.m. (4) Anxiety ICD Code: F41.9 - Anxiety disorder, unspecified Plan: Continue sertraline. Hold Xanax and Ambien at this time. Discussed possible side effects of these medications when combined with the patient and her daughter. (5) Medication side effects ICD Code: T88.7XXA - Unspecified adverse effect of drug or medicament, initial encounter Plan: Hold Xanax and Ambien as noted above. Continue to monitor. Patient's daughter would like the PCP to be notified so they can try to avoid using sedating medications. Advised daughter I will make a note for the morning team. (6) Abnormal urinalysis ICD Code: R82.90 - Unspecified abnormal findings in urine Plan: Possible UTI. Patient received cefepime in the ED. -Continue antibiotics with Rocephin. Follow urine culture (7) Hypoxemia ICD Code: R09.02 - Hypoxemia Plan: Chest x-ray unremarkable. Could be related to atelectasis. - D-dimer elevated. CTA pending - Incentive spirometry - continue supplemental oxygen Discussed Condition With Dr. Simmons. Patient and her daughter. Physician Certification 2 Midnight Certification Type: Admission for Inpatient Services Order for Inpatient Services The services are ordered in accordance with Medicare regulations or non- Medicare payer requirements, as applicable. In the case of services not specified as inpatient-only, they are appropriately provided as inpatient services in accordance with the 2-midnight benchmark. Estimated LOS (days): 3 days is the estimated time the patient will need to remain in the hospital, assuming treatment plan goals are met and no additional complications. Post-Hospital Plan: Not yet determined Problem Qualifiers (1) Pelvic fracture: (2) Rhabdomyolysis: Qualified Codes: T79.6XXA - Traumatic ischemia of muscle, initial encounter Tiffany Watkins MD Aug 31, 2017 23:45
[2017-09-01] VITALS (11 sets, daily range): BP systolic 90–172; BP diastolic 54–78; PULSE 67–91; RESP 16–18; TEMP 96.7–100; O2SAT 92–96
[2017-09-01] MEDS ORDERED: SODIUM CHLORID 0.9% 500 ML INJ 500 ML IV ONE (00:30)
[2017-09-01 00:37] LABS: BACTERIA, URINE FEW /hpf; BILIRUBIN, URINE NEG (NEG); BLOOD, URINE MOD (NEG); GLUCOSE,URINE NEG (NEG); KETONE, URINE TRACE mg/dL (NEG); MUCUS URINE FEW /lpf (OCC); NITRITE,URINE NEG (NEG); PH, URINE 5.5 (5.0-8.5); URINE COLOR YELLOW (YELLW/STRAW); URINE LEUKOCYTE ESTERASE NEG (NEG)
[2017-09-01 00:51] LABS: MAGNESIUM 1.9 MG/DL (1.5-2.5)
[2017-09-01] MEDS ORDERED: LACTULOSE SYRUP 20 GM/30 ML CUP PO PRN (01:30)
[2017-09-01] MEDS ORDERED: SENNOSIDES 8.6 MG TAB PO PRN (01:30)
[2017-09-01] MEDS ORDERED: MAGNESIUM HYDROXIDE SUSP 30 ML CUP PO PRN (01:30)
[2017-09-01] MEDS ORDERED: BISACODYL 10 MG SUPP RECTAL PRN (01:30)
[2017-09-01] MEDS ORDERED: POTASSIUM CHLORIDE INJ 10 MEQ in SODIUM CHLOR 0.45% 1000 ML INJ 1,000 ML IV SCH (01:30)
[2017-09-01] MEDS ORDERED: SODIUM CHLORIDE 0.9% FLUSH 10 ML FLUSH IV FLUSH PRN (01:30)
[2017-09-01] MEDS ORDERED: NALOXONE HCL 0.4 MG/ML AMP IV PUSH PRN (01:30)
[2017-09-01] MEDS ORDERED: ACETAMINOPHEN 325 MG TAB PO PRN (01:30)
[2017-09-01] MEDS ORDERED: ONDANSETRON HCL 4 MG/2 ML VIAL IVP PRN (01:30)
[2017-09-01] MEDS ORDERED: IOHEXOL 350 MG/ML 10 ML VIAL (for RAD DIAG) IVCONTRAST ONE (02:20)
--- NOTE | 2017-09-01 03:06 | RADRPT ---
EXAM DATE/TIME: 09/01/2017 02:10 [facility] COMPARISON: CT PULMONARY ANGIOGRAM, November 29, 2015, 17:02. INDICATIONS : Shortness of breath. Elevated D-Dimer. IV CONTRAST: 70 cc Omnipaque 350 (iohexol) IV RADIATION DOSE: 11.04 CTDIvol (mGy) MEDICAL HISTORY : Hypertension. Hernia, hiatal. SURGICAL HISTORY : None. ENCOUNTER: Initial ACUITY: 1 day PAIN SCALE: 0/10 LOCATION: chest TECHNIQUE: Volumetric scanning of the chest was performed using a pulmonary embolism protocol MIP images were re constructed. Using automated exposure control and adjustment of the mA and/or kV according to patien t size, radiation dose was kept as low as reasonably achievable to obtain optimal diagnostic quality images. DICOM format image data is available electronically for review and comparison. Follow-up recommendations for detected pulmonary nodules are based at a minimum on nodule size and pa tient risk factors according to Fleischner Society Guidelines. FINDINGS: PULMONARY ARTERIES: No filling defects are seen in the pulmonary arteries through the segmental level. Main pulmonary art ana is prominent in size measuring up to 3.9 cm. LUNGS: Mild groundglass opacities and airspace consolidation at the extreme lung bases with groundglass opac ities in the posterior left upper lobe lower lobe. PLEURAE: Trace left pleural effusion. MEDIASTINUM: Four-chamber cardiac enlargement. No significant mediastinal adenopathy. MUSCULOSKELETAL: Degenerative spondylosis of the thoracic spine without focal lytic or blastic abnormality. MISCELLANEOUS: Redemonstration of small hiatal hernia. CONCLUSION: 1. No CT evidence for pulmonary artery embolism. 2. Prominent main pulmonary artery measuring up to 3.9 cm consistent with pulmonary artery hypertensi on. 3. Four-chamber cardiomegaly. 4. Minimal bibasilar airspace consolidation, likely atelectasis/scarring. 5. Trace left pleural effusion. 6. Small hiatal hernia. Vicente Kern MD on September 01, 2017 at 2:59 Board Certified Radiologist. This report was verified electronically.
[2017-09-01] MEDS ORDERED: MORPHINE SULFATE 2 MG/ML INJ IV PUSH PRN (06:00)
[2017-09-01] MEDS: LEVOTHYROXINE SODIUM 88 MCG TAB PO SCH (06:27)
[2017-09-01] MEDS: SODIUM CHLORIDE 0.9% FLUSH 10 ML FLUSH IV FLUSH SCH ×2 (09:00→20:33)
[2017-09-01] MEDS: ATENOLOL 50 MG TAB PO SCH (09:04)
[2017-09-01] MEDS: HEPARIN SODIUM - SQ 10,000 UNITS/ML VIAL SQ SCH ×2 (09:04→20:36)
[2017-09-01] MEDS: SERTRALINE HCL 100 MG TAB PO SCH (09:04)
--- NOTE | 2017-09-01 10:44 | HHI.PR ---
Subjective Remarks Follow-up pelvic fracture/rhabdomyolysis/abnormal UA 09/01/17-patient seen and examined, complains of diarrhea overnight however denies any pelvic pain. Currently afebrile Objective Vitals Vital Signs Date Time Temp Pulse Resp B/P (MAP) Pulse Ox O2 Delivery O2 Flow Rate FiO2 09/01/17 08:00 97.3 88 16 128/67 (87) 93 09/01/17 04:00 98.7 90 18 131/66 (87) 94 09/01/17 02:37 100.0 91 18 172/78 (109) 93 09/01/17 02:20 09/01/17 01:45 84 140/77 (98) 09/01/17 00:43 91 18 152/72 (98) 96 Nasal Cannula 3.00 08/31/17 23:22 88 18 169/81 (110) 96 Nasal Cannula 3.00 08/31/17 20:48 98 Nasal Cannula 4.00 08/31/17 20:40 99.7 95 20 164/79 (107) 97 I/O 08/31/17 08/31/17 08/31/17 09/01/17 09/01/17 09/01/17 07:00 15:00 23:00 07:00 15:00 23:00 Intake Total 1100 ml Output Total 525 ml Balance 575 ml Intake Oral 0 ml IV Total 1100 ml Output Urine Total 525 ml # Bowel Movements 0 Result Diagram: 08/31/17204908/31/1720[address] Angiography 09/01/17 0000 Signed Impressions: Service Date/Time: September 02:10 - CONCLUSION: 1. No CT evidence for pulmonary artery embolism. 2. Prominent main pulmonary artery measuring up to 3.9 cm consistent with pulmonary artery hypertension. 3. Four-chamber cardiomegaly. 4. Minimal bibasilar airspace consolidation, likely atelectasis/scarring. 5. Trace left pleural effusion. 6. Small hiatal hernia. Vicente Kern MD Head CT 08/31/172044 Signed Impressions: Service Date/Time: Thursday, August 31, 2017 21:14 - CONCLUSION: 1. Mild periventricular and subcortical white matter small vessel ischemic changes bilaterally. 2. 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 3. Mild diffuse atrophy. 4. No acute infarct, acute hemorrhage, mass effect or extra axial fluid collections. Maximino Sharif MD Chest X-Ray 08/31/172044 Signed Impressions: Service Date/Time: Thursday, August 31, 2017 20:58 - CONCLUSION: No acute disease. Maximino Sharif MD Thoracic Spine X-Ray 08/31/17 0000 Signed Impressions: Service Date/Time: Thursday, August 31, 2017 21:06 - CONCLUSION: No definite compression fracture involving thoracic spine. Mild compression deformity involving an upper lumbar vertebral body of indeterminate age. Degenerative changes of the thoracic spine. Maximino Sharif MD Pelvis X-Ray 08/31/17 0000 Signed Impressions: Service Date/Time: Thursday, August 31, 2017 21:01 - CONCLUSION: Acute fractures along the left superior and inferior pubic rami. Maximino Sharif MD Lower Extremity Ultrasound 08/31/17 0000 Signed Impressions: Service Date/Time: Thursday, August 31, 2017 22:08 - CONCLUSION: No evidence of deep venous thrombosis within the left lower extremity. Maximino Sharif MD Femur X-Ray 08/31/17 0000 Signed Impressions: Service Date/Time: Thursday, August 31, 2017 21:02 - CONCLUSION: Acute fractures involving left superior and inferior pubic rami. Maximino Sharif MD Cervical Spine CT 08/31/17 0000 Signed Impressions: Service Date/Time: Thursday, August 31, 2017 21:14 - CONCLUSION: No acute fracture or prevertebral soft tissue swelling. Moderate bilateral foraminal narrowing at C3-4, C4-5 and C5-6 and mild bilateral foraminal narrowing at C6- 7. Diffuse cervical spondylosis. Biapical fibrotic scarring. Maximino Sharif MD Objective Remarks GENERAL: NAD SKIN: Warm and dry. HEAD: Normocephalic. EYES: No scleral icterus. No injection or drainage. NECK: Supple, trachea midline. No JVD or lymphadenopathy. CARDIOVASCULAR: Regular rate and rhythm without murmurs, gallops, or rubs. RESPIRATORY: Breath sounds equal bilaterally. No accessory muscle use. GASTROINTESTINAL: Abdomen soft, non-tender, nondistended. MUSCULOSKELETAL: No cyanosis, or edema. BACK: Nontender without obvious deformity. No CVA tenderness. A/P Problem List: (1) Fall ICD Code: W19.XXXA - Unspecified fall, initial encounter (2) Pelvic fracture ICD Code: S32.9XXA - Fracture of unspecified parts of lumbosacral spine and pelvis, initial encounter for closed fracture Status: Acute (3) Rhabdomyolysis ICD Code: M62.82 - Rhabdomyolysis Status: Acute (4) Anxiety ICD Code: F41.9 - Anxiety disorder, unspecified (5) Medication side effects ICD Code: T88.7XXA - Unspecified adverse effect of drug or medicament, initial encounter (6) Abnormal urinalysis ICD Code: R82.90 - Unspecified abnormal findings in urine (7) Hypoxemia ICD Code: R09.02 - Hypoxemia Assessment and Plan 87-year-old female with Pelvic fracture status post mechanical fall Conservative management Ibuprofen scheduled for pain PT to treat and eval Rhabdomyolysis Continue with IV fluid hydrations and increase rate 125 cc/h Monitor CK Abnormal UA Currently on Rocephin pending urine culture Medication side effect Continue to hold all [employer]INCIPAL [employer]ATE[employer]IST depressant medicines Transaminitis Check hepatitis profile and monitor LFTs Hypertension Continue with lisinopril Diarrhea Check C. difficile PCR and treat accordingly DVT prophylaxis; Heparin Problem Qualifiers (1) Pelvic fracture: Qualified Codes: S32.512A - Fracture of superior rim of left pubis, initial encounter for closed fracture (2) Rhabdomyolysis: Qualified Codes: T79.6XXA - Traumatic ischemia of muscle, initial encounter Mandeep Freeman MD Sep 01, 2017 10:44
--- NOTE | 2017-09-01 11:12 | EKG ---
Date Performed: 08/31/2017 Time Performed: 20:50:20 PTAGE: 87 years EKG: Sinus rhythm WITH OCCASIONAL ECTOPIC PREMATURE COMPLEXES LEFT ATRIAL ENLARGEMENT MARKED LEFT AXIS DEVIATION MODER ATE INTRAVENTRICULAR CONDUCTION DELAY MODERATE ST DEPRESSION ABNORMAL ECG Since the prior tracing, th ere has been no significant change PREVIOUS TRACING : 11/29/2015 15.36 DOCTOR: Stuart Hayward Interpretating Date/Time 09/01/2017 11:09:54
[2017-09-01] MEDS: GABAPENTIN 100 MG CAP PO SCH ×2 (11:49→17:36)
[2017-09-01] MEDS: cefTRIAXone INJ 1,000 MG in SODIUM CHLORIDE 0.9% INJ 100 ML IV SCH (11:49)
[2017-09-01] MEDS: SODIUM CHLOR 0.9% 1000 ML INJ 1,000 ML IV SCH ×2 (11:51→20:33)
[2017-09-01] MEDS: IBUPROFEN 600 MG TAB PO SCH ×2 (11:51→20:34)
[2017-09-01 16:31] LABS: HEPATITIS A AB IGM NEGATIVE (NEGATIVE); HEPATITIS B CORE AB IGM NEGATIVE (NEGATIVE)
[2017-09-02] VITALS (12 sets, daily range): BP systolic 112–133; BP diastolic 53–76; PULSE 61–79; RESP 16–19; TEMP 96.9–99.4; O2SAT 91–96
[2017-09-02] MEDS: SODIUM CHLOR 0.9% 1000 ML INJ 1,000 ML IV SCH ×3 (02:57→16:39)
[2017-09-02] MEDS: IBUPROFEN 600 MG TAB PO SCH ×3 (03:13→20:34)
[2017-09-02] MEDS: metroNIDAZOLE 500 MG INJ 100 ML IV SCH ×3 (04:51→22:05)
[2017-09-02 05:03] LABS: AUTOMATED NEUTROPHIL # 6.3 TH/MM3 (1.8-7.7); BASOPHIL % 0.3 % (0.0-2.0); EOSINOPHIL # 0.2 TH/MM3 (0-0.4); EOSINOPHIL % 2.6 % (0.0-4.0); HEMATOCRIT 32.2 % (35.0-46.0); HEMOGLOBIN 10.7 GM/DL (11.6-15.3); LYMPH % 4.9 % (9.0-44.0); LYMPHOCYTE # 0.4 TH/MM3 (1.0-4.8); MEAN CELL VOLUME 94.2 FL (80.0-100.0); MEAN CORPUSCULAR HEMOGLOBIN 31.4 PG (27.0-34.0); MEAN CORPUSCULAR HGB CONC 33.4 % (32.0-36.0); MEAN PLATELET VOLUME 8.6 FL (7.0-11.0); MONO % 12.2 % (0.0-8.0); PLATELET COUNT 203 TH/MM3 (150-450); RED BLOOD COUNT 3.42 MIL/MM3 (4.00-5.30); RED CELL DISTRIBUTION WIDTH 15.1 % (11.6-17.2); WHITE BLOOD COUNT 7.9 TH/MM3 (4.0-11.0)
[2017-09-02 05:29] LABS: ALBUMIN 2.2 GM/DL (3.4-5.0); ALKALINE PHOSPHATASE 172 U/L (45-117); ALT (GPT) 61 U/L (10-53); AST (GOT) 70 U/L (15-37); BICARBONATE 26.6 MEQ/L (21.0-32.0); BLOOD UREA NITROGEN 19 MG/DL (7-18); CALCIUM 8.4 MG/DL (8.5-10.1); CHLORIDE 108 MEQ/L (98-107); CREATININE 0.68 MG/DL (0.50-1.00); GLOMERULAR FILTRATION RATE 82 ML/MIN (>89); GLUCOSE,RANDOM 72 MG/DL (74-106); SODIUM (NA) 142 MEQ/L (136-145); TOTAL BILIRUBIN ADULT 0.5 MG/DL (0.2-1.0)
[2017-09-02] MEDS: LEVOTHYROXINE SODIUM 88 MCG TAB PO SCH (05:48)
[2017-09-02 06:27] LABS: TOTAL PROTEIN 5.2 GM/DL (6.4-8.2)
--- NOTE | 2017-09-02 08:08 | PD.CONS ---
[facility] Service Orthopedic Surgeons Consult Requested By Dr. Jack Reason for Consult Fracture of the pelvis Primary Care Physician Unknown Admission Diagnosis Diagnoses: (1) Fall (2) Pelvic fracture Diagnosis: Principal (3) Rhabdomyolysis (4) Anxiety (5) Medication side effects (6) Abnormal urinalysis (7) Hypoxemia Chief Complaint: Left hemipelvis pain and inability to ambulate without pain History of Present Illness This is an 87-year-old female who was admitted after a fall and sustaining a pelvis fracture. The patient has a history of a spine fracture recently. She normally ambulate with a walker. She was found by her daughter where she had fallen. The patient indicates that she was walking to the bathroom and tripped over a cord. She denied any loss of consciousness. She remembers events. She states she was unable to get up and ambulate. She was brought to [facility]. X-rays and studies showed evidence of a left hemipelvis fracture. I have been asked to see her in consultation regarding the same. This patient was seen and evaluated yesterday on 09/01/2017. This is being dictated in a delayed fashion due to volume patient's seen yesterday. This was communicated to the nursing staff yesterday when I saw the patient Past Family Social History Past Medical History hypertension, anxiety, irritable bowel syndrome status post implant placement Past Surgical History Bilateral knee replacement Hemithyroidectomy Hysterectomy Allergies: Uncoded Allergies: STATINS (Adverse Reaction, Severe, Nausea, muscle pain, 11/29/15) Active Ordered Medications Current Medications Medications (Trade) Dose Ordered Sig/Trey Route Start Time Stop Time Status Last Admin (Tenormin) 50 mg DAILY PO 09/01/17 09:00 09/01/17 09:04 (Synthroid) 88 mcg DAILY@0700 PO 09/01/17 07:00 09/02/17 05:48 (NS Flush) 2 ml UNSCH PRN IV FLUSH 09/01/17 01:30 (NS Flush) 2 ml BID IV FLUSH 09/01/17 09:00 (Tylenol) 650 mg Q4H PRN PO 09/01/17 01:30 (Zofran Inj) 4 mg Q6H PRN IVP 09/01/17 01:30 (Narcan Inj) 0.4 mg UNSCH PRN IV PUSH 09/01/17 01:30 (Milk Of Magnesia Liq) 30 ml Q12H PRN PO 09/01/17 01:30 (Zoloft) 100 mg DAILY PO 09/01/17 09:00 09/01/17 09:04 Ceftriaxone Sodium 1000 mg/ Sodium Chloride 100 ml @ 200 mls/hr Q24H IV 09/01/17 11:00 09/01/17 11:49 (Heparin Inj) 5,000 units Q12HR SQ 09/01/17 09:00 09/01/17 20:36 Sodium Chloride 1,000 ml @ 125 mls/hr Q8H IV 09/01/17 10:45 09/02/17 02:57 (Motrin) 600 mg Q8H PO 09/01/17 12:00 09/02/17 03:13 (Neurontin) 200 mg TID PO 09/01/17 13:00 09/01/17 17:36 Metronidazole 100 ml @ 100 mls/hr Q8H IV 09/02/17 06:00 09/02/17 04:51 (Lactinex) 1 tab Q12HR PO 09/02/17 09:00 UNV Reported Meds & Active Scripts Active Reported Potassium Chloride ER (Potassium Chloride) 10 Meq Cap 10 Meq PO DAILY Ambien (Zolpidem Tartrate) 10 Mg Tab 10 Mg PO HS PRN Sertraline (Sertraline HCl) 100 Mg Tab 100 Mg PO DAILY Levothyroxine (Levothyroxine Sodium) 88 Mcg Tab 88 Mcg PO DAILY Atenolol 50 Mg Tab 50 Mg PO DAILY Tylenol-Codeine #4 (Acetaminophen-Codeine) 300-60 mg Tab 1 Tab PO Q4H PRN Xanax (Alprazolam) 0.25 Mg Tab 0.25 Mg PO HS PRN Family History Reviewed and found to be noncontributory. Social History No history of tobacco or alcohol use. Patient leaves next to her daughter. She is normally independent. Physical Exam Vital Signs Vital Signs Date Time Temp Pulse Resp B/P (MAP) Pulse Ox O2 Delivery O2 Flow Rate FiO2 09/02/17 04:54 98.1 74 16 123/66 (85) 92 3/2/18 04:10 64 09/02/17 04:01 70 09/02/17 00:13 62 09/02/17 00:00 96.9 61 16 119/63 (81) 93 09/01/17 20:30 94 2.00 09/01/17 20:29 67 09/01/17 20:00 96.9 68 16 99/60 (73) 94 09/01/17 18:46 108/64 (79) Automatic Cuff 09/01/17 18:26 98/60 (73) 09/01/17 16:00 97.3 73 16 90/54 (66) 95 09/01/17 12:00 96.7 79 17 127/78 (94) 92 Physical Exam HEENT: Normocephalic atraumatic pupils equal round reactive. NECK: Supple. No abnormal masses. Full range of motion. CHEST: Clear to auscultation with no rales or rhonchi's or wheezes. HEART: Regular rate and rhythm. No murmurs. ABDOMEN: Soft, nontender, no masses. Normal active bowel sounds. GENITOURINARY: Deferred. MUSCULOSKELETAL: The patient is lying in bed. She appears fairly comfortable. There is tenderness in the region of the left groin and left hip. There is no tenderness over the greater trochanter. Hip motion re-creates mild groin discomfort. Leg lengths are equal. No external rotation of the left or right leg. Dorsalis pedis 1+. Sensation is almost normal. Laboratory Laboratory Tests Test 09/01/17 13:28 09/02/17 02:30 09/02/17 03:10 Hepatitis A IgM Antibody NEGATIVE Hepatitis B Surface Antigen NEGATIVE Hepatitis B Core IgM Antibody NEGATIVE Hepatitis C Antibody NEGATIVE Stool C. difficile Toxin (PCR) POSITIVE Stl C. difficile Toxin Epiderm 027 PRESUMPTIVE NEGATIVE White Blood Count 7.9 Red Blood Count 3.42 Hemoglobin 10.7 Hematocrit 32.2 Mean Corpuscular Volume 94.2 Mean Corpuscular Hemoglobin 31.4 Mean Corpuscular Hemoglobin Concent 33.4 Red Cell Distribution Width 15.1 Platelet Count 203 Mean Platelet Volume 8.6 Neutrophils (%) (Auto) 80.0 Lymphocytes (%) (Auto) 4.9 Monocytes (%) (Auto) 12.2 Eosinophils (%) (Auto) 2.6 Basophils (%) (Auto) 0.3 Neutrophils # (Auto) 6.3 Lymphocytes # (Auto) 0.4 Monocytes # (Auto) 1.0 Eosinophils # (Auto) 0.2 Basophils # (Auto) 0.0 CBC Comment DIFF FINAL Differential Comment Blood Urea Nitrogen 19 Creatinine 0.68 Random Glucose 72 Total Protein 5.2 Albumin 2.2 Calcium Level 8.4 Alkaline Phosphatase 172 Aspartate Amino Transf (AST/SGOT) 70 Alanine Aminotransferase (ALT/SGPT) 61 Total Bilirubin 0.5 Sodium Level 142 Potassium Level 3.6 Chloride Level 108 Carbon Dioxide Level 26.6 Anion Gap 7 Estimat Glomerular Filtration Rate 82 Total Creatine Kinase 966 Creatine Kinase MB 5.4 Creatine Kinase MB % 0.6 Date/Time Source Procedure Growth Status 08/31/17 20:50 Blood Peripheral Aerobic Blood Culture - Preliminary NO GROWTH IN 1 DAY Resulted 08/31/17 20:50 Blood Peripheral Anaerobic Blood Culture - Preliminary NO GROWTH IN 1 DAY Resulted 09/01/17 00:10 Urine Catheterized Urine Urine Culture Pending Received Result Diagram: 09/02/17 03109/02/17 031 Imaging Review of x-rays and studies and review of radiographs today shows evidence of the left hemipelvis fracture with the anterior ramus on the left and the ischiofemoral ramus. No significant displacement. Moderate osteopenia is suspect. No evidence of a peritrochanteric fracture or femoral neck fracture. Assessment & Plan Assessment and Plan Fracture left hemipelvis: Left anterior and ischial ramus. PLAN: Weightbearing as tolerated. Use of a walker for transfer and ambulation. Likely this patient will need to be transferred to long-term for rehabilitation. Nonsurgical treatment of her left hemipelvis fracture. Follow-up in the office in 3-4 weeks see her one more time in the hospital before her discharge Willard Sprague MD Sep 02, 2017 08:08
[2017-09-02] MEDS: SODIUM CHLORIDE 0.9% FLUSH 10 ML FLUSH IV FLUSH SCH ×2 (09:00→20:34)
[2017-09-02] MEDS: ATENOLOL 50 MG TAB PO SCH (09:10)
[2017-09-02] MEDS: GABAPENTIN 100 MG CAP PO SCH ×3 (09:10→16:39)
[2017-09-02] MEDS: HEPARIN SODIUM - SQ 10,000 UNITS/ML VIAL SQ SCH ×2 (09:10→20:35)
[2017-09-02] MEDS: SERTRALINE HCL 100 MG TAB PO SCH (09:10)
--- NOTE | 2017-09-02 10:08 | HHI.PR ---
Subjective Remarks Follow-up pelvic fracture/rhabdomyolysis/abnormal UA 09/01/17-patient seen and examined, complains of diarrhea overnight however denies any pelvic pain. Currently afebrile 09/02/17-patient seen and examined, C diff positive, pain to back somehow tolerable. Not much of an appetite Objective Vitals Vital Signs Date Time Temp Pulse Resp B/P (MAP) Pulse Ox O2 Delivery O2 Flow Rate FiO2 09/02/17 09:56 74 09/02/17 08:00 98.0 74 19 133/76 (95) 96 09/02/17 04:54 98.1 74 16 123/66 (85) 92 09/02/17 04:10 64 09/02/17 04:01 70 09/02/17 00:13 62 09/02/17 00:00 96.9 61 16 119/63 (81) 93 09/01/17 20:30 94 2.00 09/01/17 20:29 67 09/01/17 20:00 96.9 68 16 99/60 (73) 94 09/01/17 18:46 108/64 (79) Automatic Cuff 09/01/17 18:26 98/60 (73) 09/01/17 16:00 97.3 73 16 90/54 (66) 95 09/01/17 12:00 96.7 79 17 127/78 (94) 92 I/O 09/01/17 09/01/17 09/01/17 09/02/17 09/02/17 09/02/17 07:00 15:00 23:00 07:00 15:00 23:00 Intake Total 1100 ml 100 ml 1600 ml 100 ml Output Total 525 ml 700 ml 300 ml Balance 575 ml 100 ml 900 ml -200 ml Intake Oral 0 ml 600 ml IV Total 1100 ml 100 ml 1000 ml 100 ml Output Urine Total 525 ml 700 ml 300 ml # Bowel Movements 0 2 2 Result Diagram: 09/02/17 0310 09/02/17 [address] Angiography 09/01/17 0000 Signed Impressions: Service Date/Time: September 02:10 - CONCLUSION: 1. No CT evidence for pulmonary artery embolism. 2. Prominent main pulmonary artery measuring up to 3.9 cm consistent with pulmonary artery hypertension. 3. Four-chamber cardiomegaly. 4. Minimal bibasilar airspace consolidation, likely atelectasis/scarring. 5. Trace left pleural effusion. 6. Small hiatal hernia. Vicente Kern MD Head CT [id number] Signed Impressions: Service Date/Time: Thursday, August 31, 2017 21:14 - CONCLUSION: 1. Mild periventricular and subcortical white matter small vessel ischemic changes bilaterally. 2. 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 3. Mild diffuse atrophy. 4. No acute infarct, acute hemorrhage, mass effect or extra axial fluid collections. Maximino Sharif MD Chest X-Ray [id number] Signed Impressions: Service Date/Time: Thursday, August 31, 2017 20:58 - CONCLUSION: No acute disease. Maximino Sharif MD Thoracic Spine X-Ray 08/31/17 Signed Impressions: Service Date/Time: Thursday, August 31, 2017 21:06 - CONCLUSION: No definite compression fracture involving thoracic spine. Mild compression deformity involving an upper lumbar vertebral body of indeterminate age. Degenerative changes of the thoracic spine. Maximino Sharif MD Pelvis X-Ray 08/31/17 0000 Signed Impressions: Service Date/Time: Thursday, August 31, 2017 21:01 - CONCLUSION: Acute fractures along the left superior and inferior pubic rami. Maximino Sharif MD Lower Extremity Ultrasound 08/31/17 0000 Signed Impressions: Service Date/Time: Thursday, August 31, 2017 22:08 - CONCLUSION: No evidence of deep venous thrombosis within the left lower extremity. Maximino Sharif MD Femur X-Ray 08/31/17 0000 Signed Impressions: Service Date/Time: Thursday, August 31, 2017 21:02 - CONCLUSION: Acute fractures involving left superior and inferior pubic rami. Maximino Sharif MD Cervical Spine CT 08/31/17 0000 Signed Impressions: Service Date/Time: Thursday, August 31, 2017 21:14 - CONCLUSION: No acute fracture or prevertebral soft tissue swelling. Moderate bilateral foraminal narrowing at C3-4, C4-5 and C5-6 and mild bilateral foraminal narrowing at C6- 7. Diffuse cervical spondylosis. Biapical fibrotic scarring. Maximino Sharif MD Objective Remarks GENERAL: NAD SKIN: Warm and dry. HEAD: Normocephalic. EYES: No scleral icterus. No injection or drainage. NECK: Supple, trachea midline. No JVD or lymphadenopathy. CARDIOVASCULAR: Regular rate and rhythm without murmurs, gallops, or rubs. RESPIRATORY: Breath sounds equal bilaterally. No accessory muscle use. GASTROINTESTINAL: Abdomen soft, non-tender, nondistended. MUSCULOSKELETAL: No cyanosis, or edema. BACK: Nontender without obvious deformity. No CVA tenderness. A/P Problem List: (1) Fall ICD Code: W19.XXXA - Unspecified fall, initial encounter (2) Pelvic fracture ICD Code: S32.9XXA - Fracture of unspecified parts of lumbosacral spine and pelvis, initial encounter for closed fracture Status: Acute (3) Rhabdomyolysis ICD Code: M62.82 - Rhabdomyolysis Status: Acute (4) Anxiety ICD Code: F41.9 - Anxiety disorder, unspecified (5) Medication side effects ICD Code: T88.7XXA - Unspecified adverse effect of drug or medicament, initial encounter (6) Abnormal urinalysis ICD Code: R82.90 - Unspecified abnormal findings in urine (7) Hypoxemia ICD Code: R09.02 - Hypoxemia Assessment and Plan 87-year-old female with Pelvic fracture status post mechanical fall Appreciate input from Orthopedic surgery Conservative management Ibuprofen scheduled for pain PT to treat and eval Rhabdomyolysis CK improving with IV fluid hydration Monitor CK Abnormal UA Currently on Rocephin pending urine culture Medication side effect Continue to hold all [employer] depressant medicines Transaminitis Hepatitis profile pending and monitor LFTs Hypertension Continue with lisinopril C. difficile diarrhea C diff PCR positive Currently on Flagyl IV and Lactinex DVT prophylaxis; Heparin Problem Qualifiers (1) Pelvic fracture: Qualified Codes: S32.512A - Fracture of superior rim of left pubis, initial encounter for closed fracture (2) Rhabdomyolysis: Qualified Codes: T79.6XXA - Traumatic ischemia of muscle, initial encounter Mandeep Freeman MD Sep 02, 2017 10:08
[2017-09-02] MEDS: cefTRIAXone INJ 1,000 MG in SODIUM CHLORIDE 0.9% INJ 100 ML IV SCH (12:43)
[2017-09-02] MEDS: LACTOBACILLUS ACIDOPHILUS TAB PO SCH ×2 (12:48→20:34)
[2017-09-02] MEDS ORDERED: PRED10 PO (15:18)
[2017-09-02] MEDS ORDERED: MELATONIN 5 MG TAB PO ONE (21:30)
[2017-09-03] VITALS (8 sets, daily range): BP systolic 100–162; BP diastolic 55–78; PULSE 69–79; RESP 16–18; TEMP 97.3–98.9; O2SAT 92–95
[2017-09-03] MEDS: SODIUM CHLOR 0.9% 1000 ML INJ 1,000 ML IV SCH ×3 (02:46→20:58)
[2017-09-03] MEDS: metroNIDAZOLE 500 MG INJ 100 ML IV SCH (04:54)
[2017-09-03] MEDS: IBUPROFEN 600 MG TAB PO SCH ×3 (04:54→21:01)
[2017-09-03] MEDS: LEVOTHYROXINE SODIUM 88 MCG TAB PO SCH (04:54)
[2017-09-03] MEDS: LACTOBACILLUS ACIDOPHILUS TAB PO SCH ×2 (09:23→21:01)
[2017-09-03] MEDS: GABAPENTIN 100 MG CAP PO SCH ×3 (09:23→17:23)
[2017-09-03] MEDS: SERTRALINE HCL 100 MG TAB PO SCH (09:23)
[2017-09-03] MEDS: ATENOLOL 50 MG TAB PO SCH (09:23)
[2017-09-03] MEDS: HEPARIN SODIUM - SQ 10,000 UNITS/ML VIAL SQ SCH ×2 (09:24→21:01)
[2017-09-03 10:27] LABS: ALBUMIN 2.2 GM/DL (3.4-5.0); ALKALINE PHOSPHATASE 130 U/L (45-117); ALT (GPT) 43 U/L (10-53); AST (GOT) 42 U/L (15-37); BICARBONATE 24.3 MEQ/L (21.0-32.0); BLOOD UREA NITROGEN 16 MG/DL (7-18); CALCIUM 8.2 MG/DL (8.5-10.1); CHLORIDE 110 MEQ/L (98-107); CREATININE 0.68 MG/DL (0.50-1.00); GLOMERULAR FILTRATION RATE 82 ML/MIN (>89); GLUCOSE,RANDOM 95 MG/DL (74-106); SODIUM (NA) 142 MEQ/L (136-145); TOTAL BILIRUBIN ADULT 0.4 MG/DL (0.2-1.0); TOTAL PROTEIN 5.2 GM/DL (6.4-8.2)
[2017-09-03] MEDS ORDERED: POTASSIUM CHLORIDE 10 MEQ CONTROLLED RELEASE TAB PO ONE (11:15)
--- NOTE | 2017-09-03 11:16 | HHI.PR ---
Subjective Remarks Follow-up pelvic fracture/rhabdomyolysis/abnormal UA 09/01/17-patient seen and examined, complains of diarrhea overnight however denies any pelvic pain. Currently afebrile 09/02/17-patient seen and examined, C diff positive, pain to back somehow tolerable. Not much of an appetite 09/03/17-patient seen and examined, reports multiple episode of loose stool. Still with back pain Objective Vitals Vital Signs Date Time Temp Pulse Resp B/P (MAP) Pulse Ox O2 Delivery O2 Flow Rate FiO2 09/03/17 08:00 97.3 70 16 137/74 (95) 94 09/03/17 04:25 69 09/03/17 04:00 98.0 70 18 130/69 (89) 94 09/03/17 00:14 98.9 75 18 100/55 (70) 95 09/02/17 23:49 72 09/02/17 20:00 99.4 72 18 126/66 (86) 93 09/02/17 19:55 79 09/02/17 16:00 97.2 71 18 112/53 (72) 91 09/02/17 12:00 97.9 66 19 122/71 (88) 92 I/O 09/02/17 09/02/17 09/02/17 09/03/17 09/03/17 09/03/17 07:00 15:00 23:00 07:00 15:00 23:00 Intake Total 100 ml 960 ml 440 ml Output Total 300 ml 250 ml 300 ml Balance -200 ml 710 ml 140 ml Intake Oral 960 ml 240 ml IV Total 100 ml 200 ml Output Urine Total 300 ml 250 ml 300 ml # Bowel Movements 2 3 2 Result Diagram: 09/02/17 0310 09/03/17 0904 Objective Remarks GENERAL: NAD SKIN: Warm and dry. HEAD: Normocephalic. EYES: No scleral icterus. No injection or drainage. NECK: Supple, trachea midline. No JVD or lymphadenopathy. CARDIOVASCULAR: Regular rate and rhythm without murmurs, gallops, or rubs. RESPIRATORY: Breath sounds equal bilaterally. No accessory muscle use. GASTROINTESTINAL: Abdomen soft, non-tender, nondistended. MUSCULOSKELETAL: No cyanosis, or edema. BACK: Nontender without obvious deformity. No CVA tenderness. A/P Problem List: (1) Fall ICD Code: W19.XXXA - Unspecified fall, initial encounter (2) Pelvic fracture ICD Code: S32.9XXA - Fracture of unspecified parts of lumbosacral spine and pelvis, initial encounter for closed fracture Status: Acute (3) Rhabdomyolysis ICD Code: M62.82 - Rhabdomyolysis Status: Acute (4) Anxiety ICD Code: F41.9 - Anxiety disorder, unspecified (5) Medication side effects ICD Code: T88.7XXA - Unspecified adverse effect of drug or medicament, initial encounter (6) Abnormal urinalysis ICD Code: R82.90 - Unspecified abnormal findings in urine (7) Hypoxemia ICD Code: R09.02 - Hypoxemia Assessment and Plan 87-year-old female with Pelvic fracture status post mechanical fall Appreciate input from Orthopedic surgery Conservative management Ibuprofen scheduled for pain PT to treat and eval Rhabdomyolysis CK improving with IV fluid hydration Continue to Monitor CK UTI Urine culture positive for lactobacillus species Currently on Rocephin Medication side effect C resolved Transaminitis Hepatitis profile negative LFT trending down Hypertension Continue with lisinopril C. difficile diarrhea C diff PCR positive Currently on Flagyl PO and Lactinex Hypokalemia To potassium 60 mEq 1 now DVT prophylaxis; Heparin Problem Qualifiers (1) Pelvic fracture: Qualified Codes: S32.512A - Fracture of superior rim of left pubis, initial encounter for closed fracture (2) Rhabdomyolysis: Qualified Codes: T79.6XXA - Traumatic ischemia of muscle, initial encounter Mandeep Freeman MD Sep 03, 2017 11:16
[2017-09-03] MEDS: cefTRIAXone INJ 1,000 MG in SODIUM CHLORIDE 0.9% INJ 100 ML IV SCH (11:58)
[2017-09-03] MEDS: metroNIDAZOLE 500 MG TAB PO SCH ×2 (13:49→21:10)
[2017-09-03] MEDS: ACETAMINOPHEN/HYDROcodone 325 MG/5 MG TAB PO PRN (17:22)
[2017-09-03] MEDS: SODIUM CHLORIDE 0.9% FLUSH 10 ML FLUSH IV FLUSH SCH (21:00)
[2017-09-04] VITALS (7 sets, daily range): BP systolic 132–163; BP diastolic 75–88; PULSE 66–77; RESP 18–24; TEMP 95.9–97.8; O2SAT 91–94
[2017-09-04] MEDS ORDERED: LORazepam 2 MG/ML VIAL IV PUSH ONE (01:15)
[2017-09-04] MEDS: LEVOTHYROXINE SODIUM 88 MCG TAB PO SCH (05:00)
[2017-09-04] MEDS: IBUPROFEN 600 MG TAB PO SCH ×3 (05:00→21:11)
[2017-09-04] MEDS: metroNIDAZOLE 500 MG TAB PO SCH ×3 (05:00→21:11)
[2017-09-04] MEDS: SODIUM CHLOR 0.9% 1000 ML INJ 1,000 ML IV SCH ×3 (05:01→21:09)
[2017-09-04 07:26] LABS: ALBUMIN 2.2 GM/DL (3.4-5.0); AST (GOT) 38 U/L (15-37); BICARBONATE 21.6 MEQ/L (21.0-32.0); BLOOD UREA NITROGEN 14 MG/DL (7-18); CALCIUM 8.2 MG/DL (8.5-10.1); CHLORIDE 112 MEQ/L (98-107); CREATININE 0.61 MG/DL (0.50-1.00); GLOMERULAR FILTRATION RATE 93 ML/MIN (>89); GLUCOSE,RANDOM 93 MG/DL (74-106); SODIUM (NA) 142 MEQ/L (136-145)
[2017-09-04 07:27] LABS: ALT (GPT) 40 U/L (10-53)
[2017-09-04 07:30] LABS: ALKALINE PHOSPHATASE 123 U/L (45-117); TOTAL BILIRUBIN ADULT 0.4 MG/DL (0.2-1.0); TOTAL PROTEIN 5.2 GM/DL (6.4-8.2)
[2017-09-04] MEDS: SODIUM CHLORIDE 0.9% FLUSH 10 ML FLUSH IV FLUSH SCH ×2 (08:30→21:00)
[2017-09-04] MEDS: LACTOBACILLUS ACIDOPHILUS TAB PO SCH ×2 (08:31→21:11)
[2017-09-04] MEDS: SERTRALINE HCL 100 MG TAB PO SCH (08:31)
[2017-09-04] MEDS: ATENOLOL 50 MG TAB PO SCH (08:31)
[2017-09-04] MEDS: HEPARIN SODIUM - SQ 10,000 UNITS/ML VIAL SQ SCH ×2 (08:31→21:11)
[2017-09-04] MEDS: GABAPENTIN 100 MG CAP PO SCH ×3 (08:31→18:12)
[2017-09-04] MEDS: ACETAMINOPHEN/HYDROcodone 325 MG/5 MG TAB PO PRN ×2 (08:39→21:11)
[2017-09-04] MEDS ORDERED: POTASSIUM CHLORIDE 10 MEQ CONTROLLED RELEASE TAB PO ONE (10:00)
--- NOTE | 2017-09-04 10:02 | HHI.PR ---
Subjective Remarks Follow-up pelvic fracture/rhabdomyolysis/abnormal UA 09/01/17-patient seen and examined, complains of diarrhea overnight however denies any pelvic pain. Currently afebrile 09/02/17-patient seen and examined, C diff positive, pain to back somehow tolerable. Not much of an appetite 09/03/17-patient seen and examined, reports multiple episode of loose stool. Still with back pain 09/04/17-patient seen and examined, Still with Diarrhea episodes. +back pain. Afebrile Objective Vitals Vital Signs Date Time Temp Pulse Resp B/P (MAP) Pulse Ox O2 Delivery O2 Flow Rate FiO2 09/04/17 08:00 97.5 72 20 163/88 (113) 94 09/04/17 04:00 95.9 67 18 163/77 (105) 94 09/04/17 00:00 96.6 75 18 142/75 (97) 93 09/03/17 20:53 Nasal Cannula 2.00 09/03/17 20:00 98.2 74 18 138/74 (95) 94 09/03/17 17:24 79 09/03/17 16:00 97.8 74 17 142/67 (92) 92 09/03/17 12:00 97.3 71 16 162/78 (106) 93 I/O 09/03/17 09/03/17 09/03/17 09/04/17 09/04/17 09/04/17 07:00 15:00 23:00 07:00 15:00 23:00 Intake Total 440 ml 1100 ml 420 ml 1240 ml Output Total 300 ml 250 ml 200 ml Balance 140 ml 1100 ml 170 ml 1040 ml Intake Oral 240 ml 420 ml 240 ml IV Total 200 ml 1100 ml 1000 ml Output Urine Total 300 ml 250 ml 200 ml # Bowel Movements 2 3 2 Result Diagram: 09/02/17 0310 09/04/17 [address] Angiography 09/01/17 0000 Signed Impressions: Service Date/Time: September 02:10 - CONCLUSION: 1. No CT evidence for pulmonary artery embolism. 2. Prominent main pulmonary artery measuring up to 3.9 cm consistent with pulmonary artery hypertension. 3. Four-chamber cardiomegaly. 4. Minimal bibasilar airspace consolidation, likely atelectasis/scarring. 5. Trace left pleural effusion. 6. Small hiatal hernia. Vicente Kern MD Head CT [id number] Signed Impressions: Service Date/Time: Thursday, August 31, 2017 21:14 - CONCLUSION: 1. Mild periventricular and subcortical white matter small vessel ischemic changes bilaterally. 2. 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 3. Mild diffuse atrophy. 4. No acute infarct, acute hemorrhage, mass effect or extra axial fluid collections. Maximino Sharif MD Chest X-Ray [id number] Signed Impressions: Service Date/Time: Thursday, August 31, 2017 20:58 - CONCLUSION: No acute disease. Maximino Sharif MD Thoracic Spine X-Ray 08/31/17 Signed Impressions: Service Date/Time: Thursday, August 31, 2017 21:06 - CONCLUSION: No definite compression fracture involving thoracic spine. Mild compression deformity involving an upper lumbar vertebral body of indeterminate age. Degenerative changes of the thoracic spine. Maximino Sharif MD Pelvis X-Ray 08/31/17 Signed Impressions: Service Date/Time: Thursday, August 31, 2017 21:01 - CONCLUSION: Acute fractures along the left superior and inferior pubic rami. Maximino Sharif MD Lower Extremity Ultrasound 08/31/17 Signed Impressions: Service Date/Time: Thursday, August 31, 2017 22:08 - CONCLUSION: No evidence of deep venous thrombosis within the left lower extremity. Maximino Sharif MD Femur X-Ray 08/31/17 0000 Signed Impressions: Service Date/Time: Thursday, August 31, 2017 21:02 - CONCLUSION: Acute fractures involving left superior and inferior pubic rami. Maximino Sharif MD Cervical Spine CT 08/31/17 0000 Signed Impressions: Service Date/Time: Thursday, August 31, 2017 21:14 - CONCLUSION: No acute fracture or prevertebral soft tissue swelling. Moderate bilateral foraminal narrowing at C3-4, C4-5 and C5-6 and mild bilateral foraminal narrowing at C6- 7. Diffuse cervical spondylosis. Biapical fibrotic scarring. Maximino Sharif MD Objective Remarks GENERAL: NAD SKIN: Warm and dry. HEAD: Normocephalic. EYES: No scleral icterus. No injection or drainage. NECK: Supple, trachea midline. No JVD or lymphadenopathy. CARDIOVASCULAR: Regular rate and rhythm without murmurs, gallops, or rubs. RESPIRATORY: Breath sounds equal bilaterally. No accessory muscle use. GASTROINTESTINAL: Abdomen soft, non-tender, nondistended. MUSCULOSKELETAL: No cyanosis, or edema. BACK: Nontender without obvious deformity. No CVA tenderness. A/P Problem List: (1) Fall ICD Code: W19.XXXA - Unspecified fall, initial encounter (2) Pelvic fracture ICD Code: S32.9XXA - Fracture of unspecified parts of lumbosacral spine and pelvis, initial encounter for closed fracture Status: Acute (3) Rhabdomyolysis ICD Code: M62.82 - Rhabdomyolysis Status: Acute (4) Anxiety ICD Code: F41.9 - Anxiety disorder, unspecified (5) Medication side effects ICD Code: T88.7XXA - Unspecified adverse effect of drug or medicament, initial encounter (6) Abnormal urinalysis ICD Code: R82.90 - Unspecified abnormal findings in urine (7) Hypoxemia ICD Code: R09.02 - Hypoxemia Assessment and Plan 87-year-old female with Pelvic fracture status post mechanical fall Appreciate input from Orthopedic surgery Conservative management Ibuprofen scheduled for pain PT to treat and eval Rhabdomyolysis CK improving with IV fluid hydration Monitor CK UTI Urine culture positive for lactobacillus species Currently on Rocephin Medication side effect C resolved Transaminitis Hepatitis profile negative LFT trending down Hypertension Continue with lisinopril C. difficile diarrhea C diff PCR positive Currently on Flagyl PO and Lactinex Hypokalemia Give potassium 60 mEq 1 now DVT prophylaxis; Heparin Problem Qualifiers (1) Pelvic fracture: Qualified Codes: S32.512A - Fracture of superior rim of left pubis, initial encounter for closed fracture (2) Rhabdomyolysis: Qualified Codes: T79.6XXA - Traumatic ischemia of muscle, initial encounter Mandeep Freeman MD Sep 04, 2017 10:02
[2017-09-04] MEDS: cefTRIAXone INJ 1,000 MG in SODIUM CHLORIDE 0.9% INJ 100 ML IV SCH (13:13)
[2017-09-05] VITALS: BP 132/81; PULSE 74; RESP 20; TEMP 98.5; O2SAT 90
[2017-09-05] MEDS: IBUPROFEN 600 MG TAB PO SCH ×3 (03:59→21:33)
[2017-09-05] MEDS: SODIUM CHLOR 0.9% 1000 ML INJ 1,000 ML IV SCH ×3 (03:59→21:36)
[2017-09-05] MEDS: metroNIDAZOLE 500 MG TAB PO SCH ×3 (03:59→21:32)
[2017-09-05 04:00] VITALS: BP 162/88; PULSE 61; RESP 20; TEMP 96; O2SAT 91
[2017-09-05] MEDS: LEVOTHYROXINE SODIUM 88 MCG TAB PO SCH (04:02)
[2017-09-05 08:00] VITALS: BP 176/89; PULSE 74; RESP 18; TEMP 97.5; O2SAT 94
[2017-09-05] MEDS: SODIUM CHLORIDE 0.9% FLUSH 10 ML FLUSH IV FLUSH SCH ×2 (08:51→21:00)
[2017-09-05] MEDS: LACTOBACILLUS ACIDOPHILUS TAB PO SCH ×2 (09:25→21:32)
[2017-09-05] MEDS: GABAPENTIN 100 MG CAP PO SCH ×3 (09:26→16:41)
[2017-09-05] MEDS: ATENOLOL 50 MG TAB PO SCH (09:26)
[2017-09-05] MEDS: HEPARIN SODIUM - SQ 10,000 UNITS/ML VIAL SQ SCH ×2 (09:26→21:35)
[2017-09-05] MEDS: SERTRALINE HCL 100 MG TAB PO SCH (09:26)
[2017-09-05 09:43] LABS: ALBUMIN 2.4 GM/DL (3.4-5.0); BICARBONATE 22.1 MEQ/L (21.0-32.0); BLOOD UREA NITROGEN 10 MG/DL (7-18); CALCIUM 7.7 MG/DL (8.5-10.1); CHLORIDE 111 MEQ/L (98-107); GLOMERULAR FILTRATION RATE 116 ML/MIN (>89); GLUCOSE,RANDOM 84 MG/DL (74-106); SODIUM (NA) 143 MEQ/L (136-145)
[2017-09-05 09:49] LABS: ALKALINE PHOSPHATASE 122 U/L (45-117); ALT (GPT) 39 U/L (10-53); AST (GOT) 37 U/L (15-37); TOTAL BILIRUBIN ADULT 0.4 MG/DL (0.2-1.0); TOTAL PROTEIN 5.3 GM/DL (6.4-8.2)
--- NOTE | 2017-09-05 10:44 | HHI.PR ---
Subjective Remarks Follow-up pelvic fracture/rhabdomyolysis/abnormal UA 09/01/17-patient seen and examined, complains of diarrhea overnight however denies any pelvic pain. Currently afebrile 09/02/17-patient seen and examined, C diff positive, pain to back somehow tolerable. Not much of an appetite 09/03/17-patient seen and examined, reports multiple episode of loose stool. Still with back pain 09/04/17-patient seen and examined, Still with Diarrhea episodes. +back pain. Afebrile 09/05/17-patient seen and examined, +diarrhea still, Some confusion overnight however alert and oriented 2 today Objective Vitals Vital Signs Date Time Temp Pulse Resp B/P (MAP) Pulse Ox O2 Delivery O2 Flow Rate FiO2 09/05/17 09:20 Nasal Cannula 2.00 09/05/17 04:00 96.0 61 20 162/88 (112) 91 09/05/17 00:00 98.5 74 20 132/81 (98) 90 09/04/17 20:05 Nasal Cannula 2.00 09/04/17 20:05 77 09/04/17 20:00 97.3 74 19 148/87 (107) 94 09/04/17 16:00 97.7 71 24 134/76 (95) 91 09/04/17 12:00 97.8 66 24 132/85 (101) 92 I/O 09/04/17 09/04/17 09/04/17 09/05/17 09/05/17 09/05/17 07:00 15:00 23:00 07:00 15:00 23:00 Intake Total 1240 ml 100 ml 1800 ml 1595 ml Output Total 200 ml 1000 ml 400 ml 350 ml Balance 1040 ml 100 ml 800 ml 1195 ml -350 ml Intake Oral 240 ml 800 ml 480 ml IV Total 1000 ml 100 ml 1000 ml 1115 ml Output Urine Total 200 ml 1000 ml 400 ml 350 ml # Voids 0 # Bowel Movements 2 2 1 Result Diagram: 09/02/17 0310 09/05/17 0720 Objective Remarks GENERAL: NAD SKIN: Warm and dry. HEAD: Normocephalic. EYES: No scleral icterus. No injection or drainage. NECK: Supple, trachea midline. No JVD or lymphadenopathy. CARDIOVASCULAR: Regular rate and rhythm without murmurs, gallops, or rubs. RESPIRATORY: Breath sounds equal bilaterally. No accessory muscle use. GASTROINTESTINAL: Abdomen soft, non-tender, nondistended. MUSCULOSKELETAL: No cyanosis, or edema. BACK: Nontender without obvious deformity. No CVA tenderness. A/P Problem List: (1) Fall ICD Code: W19.XXXA - Unspecified fall, initial encounter (2) Pelvic fracture ICD Code: S32.9XXA - Fracture of unspecified parts of lumbosacral spine and pelvis, initial encounter for closed fracture Status: Acute (3) Rhabdomyolysis ICD Code: M62.82 - Rhabdomyolysis Status: Acute (4) Anxiety ICD Code: F41.9 - Anxiety disorder, unspecified (5) Medication side effects ICD Code: T88.7XXA - Unspecified adverse effect of drug or medicament, initial encounter (6) Abnormal urinalysis ICD Code: R82.90 - Unspecified abnormal findings in urine (7) Hypoxemia ICD Code: R09.02 - Hypoxemia Assessment and Plan 87-year-old female with Pelvic fracture status post mechanical fall Appreciate input from Orthopedic surgery Conservative management Ibuprofen scheduled for pain PT to treat and eval Rhabdomyolysis CK improving with IV fluid hydration; decrease IVF rate Monitor CK UTI Urine culture positive for lactobacillus species d/c Rocephin Medication side effect C resolved Transaminitis-Resolved Hepatitis profile negative LFT wnl Hypertension Continue with lisinopril C. difficile diarrhea C diff PCR positive Currently on Flagyl PO and Lactinex Hypokalemia Resolved s/p potassium 60 mEq 1 DVT prophylaxis; Heparin Problem Qualifiers (1) Pelvic fracture: Qualified Codes: S32.512A - Fracture of superior rim of left pubis, initial encounter for closed fracture (2) Rhabdomyolysis: Qualified Codes: T79.6XXA - Traumatic ischemia of muscle, initial encounter Mandeep Freeman MD Sep 05, 2017 10:44
[2017-09-05 12:00] VITALS: BP 158/91; PULSE 73; RESP 18; TEMP 97.7; O2SAT 94
[2017-09-05] MEDS: ACETAMINOPHEN/HYDROcodone 325 MG/5 MG TAB PO PRN ×2 (12:09→19:19)
[2017-09-05 16:00] VITALS: BP 164/88; PULSE 79; RESP 18; TEMP 98.6; O2SAT 94
[2017-09-05 20:00] VITALS: BP 160/73; PULSE 82; RESP 18; TEMP 98.2; O2SAT 95
[2017-09-06] VITALS: BP 173/93; PULSE 80; RESP 19; TEMP 98; O2SAT 94
[2017-09-06] MEDS: ACETAMINOPHEN/HYDROcodone 325 MG/5 MG TAB PO PRN ×4 (00:48→21:39)
[2017-09-06] MEDS ORDERED: LORazepam 0.5 MG TAB PO ONE (01:45)
[2017-09-06 04:00] VITALS: BP 154/72; PULSE 79; RESP 19; TEMP 97.8; O2SAT 94
[2017-09-06] MEDS: metroNIDAZOLE 500 MG TAB PO SCH ×3 (05:36→21:39)
[2017-09-06] MEDS: IBUPROFEN 600 MG TAB PO SCH ×3 (05:36→21:00)
[2017-09-06] MEDS: LEVOTHYROXINE SODIUM 88 MCG TAB PO SCH (05:36)
[2017-09-06 08:00] VITALS: BP 153/90; PULSE 69; RESP 20; TEMP 96.5; O2SAT 93
[2017-09-06] MEDS: GABAPENTIN 100 MG CAP PO SCH ×3 (08:34→17:29)
[2017-09-06] MEDS: SERTRALINE HCL 100 MG TAB PO SCH (08:34)
[2017-09-06] MEDS: SODIUM CHLORIDE 0.9% FLUSH 10 ML FLUSH IV FLUSH SCH ×2 (08:35→21:40)
[2017-09-06] MEDS: LACTOBACILLUS ACIDOPHILUS TAB PO SCH ×2 (08:35→21:39)
[2017-09-06] MEDS: ATENOLOL 50 MG TAB PO SCH (08:35)
[2017-09-06] MEDS: HEPARIN SODIUM - SQ 10,000 UNITS/ML VIAL SQ SCH ×2 (08:36→21:40)
[2017-09-06] MEDS ORDERED: METR-1 PO (10:16)
[2017-09-06] MEDS ORDERED: GABA100C4 PO (10:16)
[2017-09-06] MEDS ORDERED: LACT PO (10:16)
[2017-09-06] MEDS ORDERED: IBUP-232 PO (10:16)
[2017-09-06] MEDS ORDERED: HYDR-3516 PO (10:16)
--- NOTE | 2017-09-06 10:20 | HHI.PR ---
Subjective Remarks Follow-up pelvic fracture/rhabdomyolysis/abnormal UA 09/01/17-patient seen and examined, complains of diarrhea overnight however denies any pelvic pain. Currently afebrile 09/02/17-patient seen and examined, C diff positive, pain to back somehow tolerable. Not much of an appetite 09/03/17-patient seen and examined, reports multiple episode of loose stool. Still with back pain 09/04/17-patient seen and examined, Still with Diarrhea episodes. +back pain. Afebrile 09/05/17-patient seen and examined, +diarrhea still, Some confusion overnight however alert and oriented 2 today 09/06/17-patient seen and examined, diarrhea improved and patient is doing well. No nausea or emesis with PO intake Objective Vitals Vital Signs Date Time Temp Pulse Resp B/P (MAP) Pulse Ox O2 Delivery O2 Flow Rate FiO2 09/06/17 08:48 2.00 09/06/17 08:00 96.5 69 20 153/90 (111) 93 09/06/17 04:00 97.8 79 19 154/72 (99) 94 09/06/17 00:00 98.0 80 19 173/93 (119) 94 09/05/17 20:00 98.2 82 18 160/73 (102) 95 09/05/17 16:00 98.6 79 18 164/88 (113) 94 09/05/17 12:00 97.7 73 18 158/91 (113) 94 I/O 09/05/17 09/05/17 09/05/17 09/06/17 09/06/17 09/06/17 07:00 15:00 23:00 07:00 15:00 23:00 Intake Total 1595 ml 50 ml 240 ml Output Total 400 ml 350 ml 550 ml 750 ml Balance 1195 ml -350 ml -500 ml -510 ml Intake Oral 480 ml 50 ml 240 ml IV Total 1115 ml Output Urine Total 400 ml 350 ml 550 ml 750 ml # Voids 0 # Bowel Movements 1 2 Result Diagram: 09/02/17 0310 09/05/17 [address] Angiography 09/01/17 0000 Signed Impressions: Service Date/Time: September 02:10 - CONCLUSION: 1. No CT evidence for pulmonary artery embolism. 2. Prominent main pulmonary artery measuring up to 3.9 cm consistent with pulmonary artery hypertension. 3. Four-chamber cardiomegaly. 4. Minimal bibasilar airspace consolidation, likely atelectasis/scarring. 5. Trace left pleural effusion. 6. Small hiatal hernia. Vicente Kern MD Head CT [id number] Signed Impressions: Service Date/Time: Thursday, August 31, 2017 21:14 - CONCLUSION: 1. Mild periventricular and subcortical white matter small vessel ischemic changes bilaterally. 2. 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 3. Mild diffuse atrophy. 4. No acute infarct, acute hemorrhage, mass effect or extra axial fluid collections. Maximino Sharif MD Chest X-Ray [id number] Signed Impressions: Service Date/Time: Thursday, August 31, 2017 20:58 - CONCLUSION: No acute disease. Maximino Sharif MD Thoracic Spine X-Ray 08/31/17 Signed Impressions: Service Date/Time: Thursday, August 31, 2017 21:06 - CONCLUSION: No definite compression fracture involving thoracic spine. Mild compression deformity involving an upper lumbar vertebral body of indeterminate age. Degenerative changes of the thoracic spine. Maximino Sharif MD Pelvis X-Ray 08/31/17 0000 Signed Impressions: Service Date/Time: Thursday, August 31, 2017 21:01 - CONCLUSION: Acute fractures along the left superior and inferior pubic rami. Maximino Sharif MD Lower Extremity Ultrasound 08/31/17 Signed Impressions: Service Date/Time: Thursday, August 31, 2017 22:08 - CONCLUSION: No evidence of deep venous thrombosis within the left lower extremity. Maximino Sharif MD Femur X-Ray 08/31/17 0000 Signed Impressions: Service Date/Time: Thursday, August 31, 2017 21:02 - CONCLUSION: Acute fractures involving left superior and inferior pubic rami. Maximino Sharif MD Cervical Spine CT 08/31/17 0000 Signed Impressions: Service Date/Time: Thursday, August 31, 2017 21:14 - CONCLUSION: No acute fracture or prevertebral soft tissue swelling. Moderate bilateral foraminal narrowing at C3-4, C4-5 and C5-6 and mild bilateral foraminal narrowing at C6- 7. Diffuse cervical spondylosis. Biapical fibrotic scarring. Maximino Sharif MD Objective Remarks GENERAL: NAD SKIN: Warm and dry. HEAD: Normocephalic. EYES: No scleral icterus. No injection or drainage. NECK: Supple, trachea midline. No JVD or lymphadenopathy. CARDIOVASCULAR: Regular rate and rhythm without murmurs, gallops, or rubs. RESPIRATORY: Breath sounds equal bilaterally. No accessory muscle use. GASTROINTESTINAL: Abdomen soft, non-tender, nondistended. MUSCULOSKELETAL: No cyanosis, or edema. BACK: Nontender without obvious deformity. No CVA tenderness. Procedures none A/P Problem List: (1) Fall ICD Code: W19.XXXA - Unspecified fall, initial encounter (2) Pelvic fracture ICD Code: S32.9XXA - Fracture of unspecified parts of lumbosacral spine and pelvis, initial encounter for closed fracture Status: Acute (3) Rhabdomyolysis ICD Code: M62.82 - Rhabdomyolysis Status: Acute (4) Anxiety ICD Code: F41.9 - Anxiety disorder, unspecified (5) Medication side effects ICD Code: T88.7XXA - Unspecified adverse effect of drug or medicament, initial encounter (6) Abnormal urinalysis ICD Code: R82.90 - Unspecified abnormal findings in urine (7) Hypoxemia ICD Code: R09.02 - Hypoxemia Assessment and Plan 87-year-old female with Pelvic fracture status post mechanical fall Appreciate input from Orthopedic surgery Conservative management Ibuprofen scheduled for pain PT to treat and eval Rhabdomyolysis-Resolved Resolved with IV fluid hydration UTI Urine culture positive for lactobacillus species s/p Rocephin Medication side effect C resolved Transaminitis-Resolved Hepatitis profile negative LFT wnl Hypertension Continue with lisinopril C. difficile diarrhea C diff PCR positive Currently on Flagyl PO and Lactinex Hypokalemia Resolved s/p potassium 60 mEq 1 DVT prophylaxis; Heparin Problem Qualifiers (1) Pelvic fracture: Qualified Codes: S32.512A - Fracture of superior rim of left pubis, initial encounter for closed fracture (2) Rhabdomyolysis: Qualified Codes: T79.6XXA - Traumatic ischemia of muscle, initial encounter Mandeep Freeman MD Sep 06, 2017 10:19
--- NOTE | 2017-09-06 10:21 | HHI.DS ---
Discharge Summary Admission Date Aug 31, 2017 at 23:46 Discharge Date: Sep 06, 2017 Admitting Diagnosis (1) Fall ICD Code: W19.XXXA - Unspecified fall, initial encounter (2) Pelvic fracture ICD Code: S32.9XXA - Fracture of unspecified parts of lumbosacral spine and pelvis, initial encounter for closed fracture Status: Acute (3) Rhabdomyolysis ICD Code: M62.82 - Rhabdomyolysis Status: Acute (4) Anxiety ICD Code: F41.9 - Anxiety disorder, unspecified (5) Medication side effects ICD Code: T88.7XXA - Unspecified adverse effect of drug or medicament, initial encounter (6) Abnormal urinalysis ICD Code: R82.90 - Unspecified abnormal findings in urine (7) Hypoxemia ICD Code: R09.02 - Hypoxemia Procedures none Brief History - From Admission 87-year-old female with a medical history significant for hypertension, anxiety , irritable bowel syndrome status post implant placement brought in by EMS after the patient was found down by his daughter. Most of the history obtained from the patient's daughter. She reports that her mother is usually independent.She sustained a fracture of the lumbar spine a few weeks ago. She has been wearing a brace and using a walker. However, her daughter notes that over the past couple of weeks, she has been somewhat unsteady with periods of memory lapse. This morning she went to check on her and found her on the floor with a walker on top of her. Patient reports that she believes she was getting up to go to the bathroom and lost her balance and fell. She denied feeling lightheaded or experience chest pain prior to the fall. I reviewed her medications with her and her daughter at bedside. Apparently the patient was recently started on Tylenol 4. She is also noted to be on Xanax and 10 mg of Ambien at night. Currently she reports that she is hurting all over when she moves. She feels okay at rest. Patient was reportedly hypoxemic by EMS evaluation. She has been requiring supplemental oxygen. CBC/BMP: 09/02/17 0310 09/05/17 0720 Significant Findings Laboratory Tests Test 09/04/17 06:38 09/05/17 07:20 09/06/17 06:18 Total Protein 5.2 GM/DL (6.4-8.2) 5.3 GM/DL (6.4-8.2) Albumin 2.2 GM/DL (3.4-5.0) 2.4 GM/DL (3.4-5.0) Calcium Level 8.2 MG/DL (8.5-10.1) 7.7 MG/DL (8.5-10.1) Alkaline Phosphatase 123 U/L (45-117) 122 U/L (45-117) Aspartate Amino Transf (AST/SGOT) 38 U/L (15-37) Potassium Level 3.3 MEQ/L (3.5-5.1) Chloride Level 112 MEQ/L (98-107) 111 MEQ/L (98-107) Total Creatine Kinase 458 U/L (26-192) 277 U/L (26-192) Imaging Last Impressions CT Angiography 09/01/17 0000 Signed Impressions: Service Date/Time: September 02:10 - CONCLUSION: 1. No CT evidence for pulmonary artery embolism. 2. Prominent main pulmonary artery measuring up to 3.9 cm consistent with pulmonary artery hypertension. 3. Four-chamber cardiomegaly. 4. Minimal bibasilar airspace consolidation, likely atelectasis/scarring. 5. Trace left pleural effusion. 6. Small hiatal hernia. Vicente Kern MD Head CT [id number] Signed Impressions: Service Date/Time: Thursday, August 31, 2017 21:14 - CONCLUSION: 1. Mild periventricular and subcortical white matter small vessel ischemic changes bilaterally. 2. 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 3. Mild diffuse atrophy. 4. No acute infarct, acute hemorrhage, mass effect or extra axial fluid collections. Maximino Sharif MD Chest X-Ray [id number]/31/[id number] Signed Impressions: Service Date/Time: Thursday, August 31, 2017 20:58 - CONCLUSION: No acute disease. Maximino Sharif MD Thoracic Spine X-Ray 08/31/17 0000 Signed Impressions: Service Date/Time: Thursday, August 31, 2017 21:06 - CONCLUSION: No definite compression fracture involving thoracic spine. Mild compression deformity involving an upper lumbar vertebral body of indeterminate age. Degenerative changes of the thoracic spine. Maximino Sharif MD Pelvis X-Ray 08/31/17 0000 Signed Impressions: Service Date/Time: Thursday, August 31, 2017 21:01 - CONCLUSION: Acute fractures along the left superior and inferior pubic rami. Maximino Sharif MD Lower Extremity Ultrasound 08/31/17 0000 Signed Impressions: Service Date/Time: Thursday, August 31, 2017 22:08 - CONCLUSION: No evidence of deep venous thrombosis within the left lower extremity. Maximino Sharif MD Femur X-Ray 08/31/17 0000 Signed Impressions: Service Date/Time: Thursday, August 31, 2017 21:02 - CONCLUSION: Acute fractures involving left superior and inferior pubic rami. Maximino Sharif MD Cervical Spine CT 08/31/17 0000 Signed Impressions: Service Date/Time: Thursday, August 31, 2017 21:14 - CONCLUSION: No acute fracture or prevertebral soft tissue swelling. Moderate bilateral foraminal narrowing at C3-4, C4-5 and C5-6 and mild bilateral foraminal narrowing at C6- 7. Diffuse cervical spondylosis. Biapical fibrotic scarring. Maximino Sharif MD PE at Discharge GENERAL: NAD SKIN: Warm and dry. HEAD: Normocephalic. EYES: No scleral icterus. No injection or drainage. NECK: Supple, trachea midline. No JVD or lymphadenopathy. CARDIOVASCULAR: Regular rate and rhythm without murmurs, gallops, or rubs. RESPIRATORY: Breath sounds equal bilaterally. No accessory muscle use. GASTROINTESTINAL: Abdomen soft, non-tender, nondistended. MUSCULOSKELETAL: No cyanosis, or edema. BACK: Nontender without obvious deformity. No CVA tenderness. Hospital Course While in the hospital, patient was treated for: Pelvic fracture status post mechanical fall Orthopedic surgery was consulted Conservative management Ibuprofen scheduled for pain PT to treat and eval Rhabdomyolysis-Resolved Resolved with IV fluid hydration UTI Urine culture positive for lactobacillus species s/p Rocephin Medication side effect C resolved Transaminitis-Resolved Hepatitis profile negative LFT wnl Hypertension Treated with lisinopril C. difficile diarrhea C diff PCR positive Treated with Flagyl PO and Lactinex Hypokalemia Resolved s/p potassium 60 mEq 1 DVT prophylaxis; Heparin Pt Condition on Discharge: Stable Discharge Disposition: Discharge to SNF Discharge Time: > 30 minutes Discharge Instructions DIET: Follow Instructions for: Heart Healthy Diet Activities you can perform: Weight Bearing as Manohar Follow up Referrals: PCP Follow-up - 2-3 Days New Medications: Gabapentin (Gabapentin) 100 Mg Cap 200 MG PO TID for Pain Management, #30 CAP Hydrocodone/Acetaminophen (Hydrocodone-Acetamin 5-325 mg) 5 Mg-325 Mg Tablet 1 TAB PO Q6H PRN for pain 2-10, #10 TAB Ibuprofen (Ibuprofen) 600 Mg Tab 600 MG PO Q8H for Infection, #30 TAB Lactobacillus Acidophilus (Acidophilus/l-Sporogenes) 35 Million Cell-25 Million Cell Tab 1 TAB PO Q12HR for Infection, #20 TAB Metronidazole (Flagyl) 500 Mg Tab 500 MG PO Q8HR for Infection, #30 TAB Continued Medications: Acetaminophen-Codeine (Tylenol-Codeine #4) 300-60 mg Tab 1 TAB PO Q4H PRN for PAIN, TAB 0 Refills Atenolol (Atenolol) 50 Mg Tab 50 MG PO DAILY for Blood Pressure Management, #30 TAB 0 Refills Levothyroxine (Levothyroxine) 88 Mcg Tab 88 MCG PO DAILY for Thyroid, #30 TAB 0 Refills Sertraline (Sertraline) 100 Mg Tab 100 MG PO DAILY, #30 TAB 0 Refills Discontinued Medications: Alprazolam (Xanax) 0.25 Mg Tab 0.25 MG PO HS PRN for ANXIETY, TAB 0 Refills Zolpidem (Ambien) 10 Mg Tab 10 MG PO HS PRN for INSOMNIA, TAB 0 Refills Mandeep Freeman MD Sep 06, 2017 10:21
[2017-09-06] MEDS: SODIUM CHLOR 0.9% 1000 ML INJ 1,000 ML IV SCH ×3 (10:34→21:42)
[2017-09-06 12:00] VITALS: BP 158/95; PULSE 72; RESP 20; TEMP 97.4; O2SAT 90
[2017-09-06 16:00] VITALS: BP 166/92; PULSE 67; RESP 19; TEMP 97.2; O2SAT 91
[2017-09-06 20:00] VITALS: BP 132/74; PULSE 81; RESP 19; TEMP 97.7; O2SAT 92
[2017-09-06] MEDS: ACETAMIN 325 MG/BUTALBITAL 50 MG/CAFFEINE 40 MG TAB PO PRN (20:22)
[2017-09-07] VITALS: BP 126/71; PULSE 76; RESP 19; TEMP 97.8; O2SAT 91
[2017-09-07 04:00] VITALS: BP 157/87; PULSE 75; RESP 19; TEMP 97.7; O2SAT 94
[2017-09-07] MEDS: ACETAMIN 325 MG/BUTALBITAL 50 MG/CAFFEINE 40 MG TAB PO PRN (04:13)
[2017-09-07] MEDS: metroNIDAZOLE 500 MG TAB PO SCH ×2 (06:17→12:48)
[2017-09-07] MEDS: LEVOTHYROXINE SODIUM 88 MCG TAB PO SCH (06:17)
[2017-09-07] MEDS: IBUPROFEN 600 MG TAB PO SCH ×2 (06:18→12:00)
[2017-09-07] MEDS: ACETAMINOPHEN/HYDROcodone 325 MG/5 MG TAB PO PRN ×2 (06:18→12:50)
[2017-09-07 08:00] VITALS: BP 155/77; PULSE 70; RESP 17; TEMP 97.4; O2SAT 92
[2017-09-07] MEDS: HEPARIN SODIUM - SQ 10,000 UNITS/ML VIAL SQ SCH (08:31)
[2017-09-07] MEDS: SERTRALINE HCL 100 MG TAB PO SCH (08:31)
[2017-09-07] MEDS: GABAPENTIN 100 MG CAP PO SCH ×2 (08:31→12:47)
[2017-09-07] MEDS: ATENOLOL 50 MG TAB PO SCH (08:31)
[2017-09-07] MEDS: SODIUM CHLOR 0.9% 1000 ML INJ 1,000 ML IV SCH (08:32)
[2017-09-07] MEDS: SODIUM CHLORIDE 0.9% FLUSH 10 ML FLUSH IV FLUSH SCH (08:32)
[2017-09-07] MEDS: LACTOBACILLUS ACIDOPHILUS TAB PO SCH (08:32)
--- NOTE | 2017-09-07 11:21 | HHI.PR ---
Subjective Remarks Follow-up pelvic fracture/rhabdomyolysis/abnormal UA 09/01/17-patient seen and examined, complains of diarrhea overnight however denies any pelvic pain. Currently afebrile 09/02/17-patient seen and examined, C diff positive, pain to back somehow tolerable. Not much of an appetite 09/03/17-patient seen and examined, reports multiple episode of loose stool. Still with back pain 09/04/17-patient seen and examined, Still with Diarrhea episodes. +back pain. Afebrile 09/05/17-patient seen and examined, +diarrhea still, Some confusion overnight however alert and oriented 2 today 09/06/17-patient seen and examined, diarrhea improved and patient is doing well. No nausea or emesis with PO intake 09/07/17-patient seen and examined, complains of MEZA, diarrhea improved Objective Vitals Vital Signs Date Time Temp Pulse Resp B/P (MAP) Pulse Ox O2 Delivery O2 Flow Rate FiO2 09/07/17 08:30 Nasal Cannula 2.00 09/07/17 08:00 97.4 70 17 155/77 (103) 92 09/07/17 04:00 97.7 75 19 157/87 (110) 94 09/07/17 00:00 97.8 76 19 126/71 (89) 91 09/06/17 20:00 97.7 81 19 132/74 (93) 92 09/06/17 16:00 97.2 67 19 166/92 (116) 91 09/06/17 12:00 97.4 72 20 158/95 (116) 90 I/O 09/06/17 09/06/17 09/06/17 09/07/17 09/07/17 09/07/17 07:00 15:00 23:00 07:00 15:00 23:00 Intake Total 240 ml 1425 ml 240 ml Output Total 750 ml 350 ml Balance -510 ml -350 ml 1425 ml 240 ml Intake Oral 240 ml 700 ml 240 ml IV Total 725 ml Output Urine Total 750 ml 350 ml # Voids 1 2 # Bowel Movements 3 Result Diagram: 09/05/17 [address] Angiography 09/01/17 0000 Signed Impressions: Service Date/Time: September 02:10 - CONCLUSION: 1. No CT evidence for pulmonary artery embolism. 2. Prominent main pulmonary artery measuring up to 3.9 cm consistent with pulmonary artery hypertension. 3. Four-chamber cardiomegaly. 4. Minimal bibasilar airspace consolidation, likely atelectasis/scarring. 5. Trace left pleural effusion. 6. Small hiatal hernia. Vicente Kern MD Head CT [id number]/31/[id number] Signed Impressions: Service Date/Time: Thursday, August 31, 2017 21:14 - CONCLUSION: 1. Mild periventricular and subcortical white matter small vessel ischemic changes bilaterally. 2. 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 3. Mild diffuse atrophy. 4. No acute infarct, acute hemorrhage, mass effect or extra axial fluid collections. Maximino Sharif MD Chest X-Ray [id number]/31/172044 Signed Impressions: Service Date/Time: Thursday, August 31, 2017 20:58 - CONCLUSION: No acute disease. Maximino Sharif MD Thoracic Spine X-Ray 08/31/17 Signed Impressions: Service Date/Time: Thursday, August 31, 2017 21:06 - CONCLUSION: No definite compression fracture involving thoracic spine. Mild compression deformity involving an upper lumbar vertebral body of indeterminate age. Degenerative changes of the thoracic spine. Maximino Sharif MD Pelvis X-Ray 08/31/17 0000 Signed Impressions: Service Date/Time: Thursday, August 31, 2017 21:01 - CONCLUSION: Acute fractures along the left superior and inferior pubic rami. Maximino Sharif MD Lower Extremity Ultrasound 08/31/17 Signed Impressions: Service Date/Time: Thursday, August 31, 2017 22:08 - CONCLUSION: No evidence of deep venous thrombosis within the left lower extremity. Maximino Sharif MD Femur X-Ray 08/31/17 0000 Signed Impressions: Service Date/Time: Thursday, August 31, 2017 21:02 - CONCLUSION: Acute fractures involving left superior and inferior pubic rami. Maximino Sharif MD Cervical Spine CT 08/31/17 0000 Signed Impressions: Service Date/Time: Thursday, August 31, 2017 21:14 - CONCLUSION: No acute fracture or prevertebral soft tissue swelling. Moderate bilateral foraminal narrowing at C3-4, C4-5 and C5-6 and mild bilateral foraminal narrowing at C6- 7. Diffuse cervical spondylosis. Biapical fibrotic scarring. Maximino Sharif MD Objective Remarks GENERAL: NAD SKIN: Warm and dry. HEAD: Normocephalic. EYES: No scleral icterus. No injection or drainage. NECK: Supple, trachea midline. No JVD or lymphadenopathy. CARDIOVASCULAR: Regular rate and rhythm without murmurs, gallops, or rubs. RESPIRATORY: Breath sounds equal bilaterally. No accessory muscle use. GASTROINTESTINAL: Abdomen soft, non-tender, nondistended. MUSCULOSKELETAL: No cyanosis, or edema. BACK: Nontender without obvious deformity. No CVA tenderness. Procedures none A/P Problem List: (1) Fall ICD Code: W19.XXXA - Unspecified fall, initial encounter (2) Pelvic fracture ICD Code: S32.9XXA - Fracture of unspecified parts of lumbosacral spine and pelvis, initial encounter for closed fracture Status: Acute (3) Rhabdomyolysis ICD Code: M62.82 - Rhabdomyolysis Status: Acute (4) Anxiety ICD Code: F41.9 - Anxiety disorder, unspecified (5) Medication side effects ICD Code: T88.7XXA - Unspecified adverse effect of drug or medicament, initial encounter (6) Abnormal urinalysis ICD Code: R82.90 - Unspecified abnormal findings in urine (7) Hypoxemia ICD Code: R09.02 - Hypoxemia Assessment and Plan 87-year-old female with Pelvic fracture status post mechanical fall Appreciate input from Orthopedic surgery Conservative management Ibuprofen scheduled for pain PT to treat and eval Rhabdomyolysis-Resolved Resolved with IV fluid hydration; HLIV UTI Urine culture positive for lactobacillus species s/p Rocephin Medication side effect resolved Transaminitis-Resolved Hepatitis profile negative LFT wnl Hypertension Continue with lisinopril C. difficile diarrhea-Improving C diff PCR positive Currently on Flagyl PO and Lactinex Hypokalemia Resolved s/p potassium 60 mEq 1 Headache Continue with Fioricet DVT prophylaxis; Heparin Problem Qualifiers (1) Pelvic fracture: Qualified Codes: S32.512A - Fracture of superior rim of left pubis, initial encounter for closed fracture (2) Rhabdomyolysis: Qualified Codes: T79.6XXA - Traumatic ischemia of muscle, initial encounter Mandeep Freeman MD Sep 07, 2017 11:21
[2017-09-07 12:00] VITALS: BP 139/86; PULSE 69; RESP 17; TEMP 96.8; O2SAT 93
[2017-09-07 16:00] VITALS: BP 133/76; PULSE 73; RESP 17; TEMP 97; O2SAT 91
== END 2017-09-07 16:53 | DRG 536 ==
LOC: NEPC 20:37 → NEDA 23:46 → N07A 09-01 02:18
PROVIDERS: ADMIT Hospitalist; ATTEND Hospitalist
PROC: 0T9B70Z Drainage of Bladder with Drainage Device, Via Natural or Artificial Opening (ICD-10-PCS; principal; 2017-08-31)
DX: S32.512A Fracture of superior rim of left pubis, initial encounter for closed fracture (principal); A04.72 Enterocolitis due to Clostridium difficile, not specified as recurrent; M62.82 Rhabdomyolysis; N39.0 Urinary tract infection, site not specified; S32.592A Other specified fracture of left pubis, initial encounter for closed fracture; I10 Essential (primary) hypertension; E78.5 Hyperlipidemia, unspecified; E03.9 Hypothyroidism, unspecified; R00.0 Tachycardia, unspecified; K21.9 Gastro-esophageal reflux disease without esophagitis; M50.31 Other cervical disc degeneration, high cervical region; R09.02 Hypoxemia; M85.80 Other specified disorders of bone density and structure, unspecified site; R74.0 Nonspecific elevation of levels of transaminase and lactic acid dehydrogenase [LDH]; E87.6 Hypokalemia; R51 Headache; M19.90 Unspecified osteoarthritis, unspecified site; F32.9 Major depressive disorder, single episode, unspecified; F41.9 Anxiety disorder, unspecified; W01.0XXA Fall on same level from slipping, tripping and stumbling without subsequent striking against object, initial encounter; Z96.653 Presence of artificial knee joint, bilateral
CPT/HCPCS: 70450; 71045; 71275; 72020; 72125; 72170; 73552; 80053; 80074; 81001; 82140; 82550; 82552; 83605; 83735; 83874; 84443; 84484; 85007; 85025; 85027; 85379; 85610; 85730; 87040; 87086; 87493; 93005; 93971; 96361; 96374; J0692; J0696; J1644; J2060; J2270; J2405; J3480; J7030; J7040; Q9967

== ENCOUNTER 2017-10-01 07:09 | Emergency (ER) | payer MEDICARE, BC ==
[~2017-10-01] VITALS: Ht 152.4 cm; Wt 52.0 kg
[~2017-10-01 07:09] MED LIST changes: -ALPR-138 PO; -AMBI10TA PO; -ATEN1TAB74 PO; +ATEN50TA PO; -FIORINAL2 PO; +GABA100C4 PO; +HYDR-3516 PO; +IBUP-232 PO; -K-TA10TA5 PO; +LACT PO; +METR-1 PO; +POTA10CA PO; +PRED10 PO; +TYLETAB36 PO
[2017-10-01 07:12] VITALS: BP 165/83; PULSE 72; RESP 16; TEMP 98.3; O2SAT 94
--- NOTE | 2017-10-01 07:25 | PD ---
HPI Chief Complaint: Abdominal Pain Time Seen by Provider: 07:20 Travel History International Travel<30 days: No Contact w/Intl Traveler<30days: No Traveled to known affect area: No History of Present Illness HPI Pleasant 87-year-old female with complaints of upper bilateral abdominal pain since last night. Reports normal stools. Reports urinary incontinence which is not new. Mild nausea without vomiting. Symptom onset yesterday evening. History of a hysterectomy. Upon further questioning when the daughter was present reveals a recent fall with pelvis and vertebral fracture. With admission to [facility]. States the patient does seem to have mild mental status change which is not necessarily new for this patient. Upon questioning patient does seem to wax and wane in her answers. PFSH Past Medical History Arthritis: Yes Asthma: No Autoimmune Disease: No Blood Disorders: No Depression: Yes Heart Rhythm Problems: No Cancer: No Cardiovascular Problems: No High Cholesterol: Yes Chest Pain: No Congestive Heart Failure: No COPD: No Cerebrovascular Accident: No Diabetes: No Diminished Hearing: No Endocrine: Yes (THYROIDECTOMY) Gastrointestinal Disorders: Yes GERD: Yes Genitourinary: No Headaches: Yes Hepatitis: No Hiatal Hernia: Yes (GERD) Hypertension: Yes Immune Disorder: No Musculoskeletal: Yes Neurologic: Yes Psychiatric: Yes Reproductive: No Respiratory: No Immunizations Current: Yes Myocardial Infarction: No Seizures: No Shingles: Yes Thyroid Disease: Yes Ulcer: Yes (GASTRIC) Tetanus Vaccination: < 5 Years Influenza Vaccination: Yes ?: Not Menopausal: Yes Past Surgical History Abdominal Surgery: Yes (HERNIA UMBILICAL) AICD: No Body Medical Devices: INTER STEM Endocrine Surgery: Yes (HEMITHYROIDECTOMY) Eye Surgery: Yes (MARIA ANTONIA. CATARACAT EXTRACT.) Genitourinary Surgery: Yes (bladder lift) Gynecologic Surgery: Yes (HYSTERECTOMY) Hysterectomy: Yes Joint Replacement: Yes (BILATERAL KNEE REPLACEMENT) Pacemaker: No Other Surgery: Yes (partial thyroid removed) Social History Alcohol Use: No Tobacco Use: No Substance Use: No Allergies-Medications (Allergen,Severity, Reaction): Coded Allergies: Xunsasl-Vkm-Pjf Reductase Inhibitor (Verified Allergy, Unknown, 10/01/17) Uncoded Allergies: STATINS (Adverse Reaction, Severe, Nausea, muscle pain, 11/29/15) Reported Meds & Prescriptions Reported Meds & Active Scripts Active Acidophilus/l-Sporogenes (Lactobacillus Acidophilus) 35 Million Cell-25 Million Cell Tab 1 Tab PO Q12HR Gabapentin 100 Mg Cap 200 Mg PO TID Hydrocodone-Acetamin 5-325 mg (Hydrocodone/Acetaminophen) 5 Mg-325 Mg Tablet 1 Tab PO Q6H PRN Ibuprofen 600 Mg Tab 600 Mg PO Q8H Flagyl (Metronidazole) 500 Mg Tab 500 Mg PO Q8HR Reported Prednisone 10 Mg Tab 10 Mg PO DAILY Potassium Chloride ER (Potassium Chloride) 10 Meq Cap 10 Meq PO DAILY Sertraline (Sertraline HCl) 100 Mg Tab 100 Mg PO DAILY Levothyroxine (Levothyroxine Sodium) 88 Mcg Tab 88 Mcg PO DAILY Atenolol 50 Mg Tab 50 Mg PO DAILY Tylenol-Codeine #4 (Acetaminophen-Codeine) 300-60 mg Tab 1 Tab PO Q4H PRN Review of Systems General / Constitutional: No: Fever Eyes: No: Visual changes HENT: No: Headaches Cardiovascular: No: Chest Pain or Discomfort Respiratory: No: Shortness of Breath Gastrointestinal: Positive: Nausea, Abdominal Pain Genitourinary: No: Dysuria Musculoskeletal: No: Pain Skin: No Rash Neurologic: No: Weakness Psychiatric: No: Depression Endocrine: No: Polydipsia Hematologic/Lymphatic: No: Easy Bruising Physical Exam Narrative GENERAL: Well-nourished, well-developed patient. SKIN: Focused skin assessment warm/dry. HEAD: Normocephalic. EYES: No scleral icterus. No injection or drainage. NECK: Supple, trachea midline. No JVD or lymphadenopathy. CARDIOVASCULAR: Regular rate and rhythm without murmurs, gallops, or rubs. RESPIRATORY: Breath sounds equal bilaterally. No accessory muscle use. GASTROINTESTINAL: Abdomen soft, diffusely tender left lower and left upper quadrant, nondistended. MUSCULOSKELETAL: No cyanosis, or edema. BACK: Nontender without obvious deformity. No CVA tenderness. Data Data Last Documented VS Vital Signs Date Time Temp Pulse Resp B/P (MAP) Pulse Ox O2 Delivery O2 Flow Rate FiO2 10/01/17 09:16 78 16 165/94 (117) 96 Nasal Cannula 2.00 10/01/17 07:12 98.3 Orders Orders Complete Blood Count With Diff (10/01/17 07:20) Comprehensive Metabolic Panel (10/01/17 07:20) Lipase (10/01/17 07:20) Lactic Acid (10/01/17 07:20) Urinalysis - C+S If Indicated (10/01/17 07:20) Ct Abd/Pel W Iv Contrast(Rout) (10/01/17 07:20) Iv Access Insert/Monitor (10/01/17 07:20) Ecg Monitoring (10/01/17 07:20) Oximetry (10/01/17 07:20) Sodium Chloride 0.9% Flush (Ns Flush) (10/01/17 07:30) Iohexol 350 Inj (Omnipaque 350 Inj) (10/01/17 08:29) Ct Brain W/O Iv Contrast(Rout) (10/01/17 ) Labs Laboratory Tests Test 10/01/17 07:33 10/01/17 09:47 White Blood Count 8.4 TH/MM3 Red Blood Count 3.96 MIL/MM3 Hemoglobin 12.0 GM/DL Hematocrit 36.4 % Mean Corpuscular Volume 91.9 FL Mean Corpuscular Hemoglobin 30.3 PG Mean Corpuscular Hemoglobin Concent 33.0 % Red Cell Distribution Width 13.8 % Platelet Count 419 TH/MM3 Mean Platelet Volume 7.8 FL Neutrophils (%) (Auto) 89.6 % Lymphocytes (%) (Auto) 4.7 % Monocytes (%) (Auto) 5.3 % Eosinophils (%) (Auto) 0.1 % Basophils (%) (Auto) 0.3 % Neutrophils # (Auto) 7.6 TH/MM3 Lymphocytes # (Auto) 0.4 TH/MM3 Monocytes # (Auto) 0.4 TH/MM3 Eosinophils # (Auto) 0.0 TH/MM3 Basophils # (Auto) 0.0 TH/MM3 CBC Comment DIFF FINAL Differential Comment Blood Urea Nitrogen 13 MG/DL Creatinine 0.60 MG/DL Random Glucose 152 MG/DL Total Protein 6.7 GM/DL Albumin 2.6 GM/DL Calcium Level 8.5 MG/DL Alkaline Phosphatase 177 U/L Aspartate Amino Transf (AST/SGOT) 19 U/L Alanine Aminotransferase (ALT/SGPT) 13 U/L Total Bilirubin 0.4 MG/DL Sodium Level 135 MEQ/L Potassium Level 3.9 MEQ/L Chloride Level 101 MEQ/L Carbon Dioxide Level 29.4 MEQ/L Anion Gap 5 MEQ/L Estimat Glomerular Filtration Rate 94 ML/MIN Lactic Acid Level 1.5 mmol/L Lipase 214 U/L Urine Collection Type CLEAN CATCH Urine Color YELLOW Urine Turbidity SL CLOUDY Urine pH 7.0 Urine Specific [place] 1.010 Urine Protein NEG mg/dL Urine Glucose (UA) NEG mg/dL Urine Ketones NEG mg/dL Urine Occult Blood NEG Urine Nitrite NEG Urine Bilirubin NEG Urine Urobilinogen 0.2 MG/DL Urine Leukocyte Esterase NEG Urine Squamous Epithelial Cells 0-5 /hpf Urine Amorphous Sediment FEW Microscopic Urinalysis Comment CULT NOT INDICATED Urine Collection Time 0947 [facility] Medical Decision Making Medical Screen Exam Complete: Yes Emergency Medical Condition: Yes Differential Diagnosis Diverticulitis, small bowel obstruction, colitis, UTI Narrative Course Assessment plan discussed with patient at bedside. Labs revealed no significant findings. Of note liver enzymes are normal. Last 72 hours Impressions Abdomen/Pelvis CT 10/01/17 0720 Signed Impressions: Service Date/Time: Sunday, October 01, 2017 08:15 - CONCLUSION: 1. Marked intrahepatic and extrahepatic there ductal dilatation with no identifiable filling defect or mass. The gallbladder is mildly distended with no calcified gallstones. 2. Apparent destructive change involving the left superior pubic rami concern for metastatic disease. 3. Multiple sacral insufficiency fractures with lucency and sclerosis. 4. Nonspecific bowel gas pattern which may represent a mild ileus. Small left pleural effusion with mild consolidation in the posterior lower lobes. Chris Cespedes MD Head CT 10/01/17 0000 Signed Impressions: Service Date/Time: Sunday, October 01, 2017 11:19 - CONCLUSION: 1. No acute hemorrhage or evidence of infarction. 2. 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 3. Moderate atrophic changes. Chris Cespedes MD CT findings were discussed in detail with patient's daughter. Diagnosis Primary Impression: Abdominal discomfort Patient Instructions: General Instructions Additional Instructions: Encouraged a bland brat diet, continue current medications, continue physical therapy, follow-up with PCP, return to emergency room with any onset of new symptoms. Med/Other Pt SpecificInfo: Prescription(s) given Scripts Ondansetron (Zofran) 4 Mg Tab 4 MG PO Q8HR Y for NAUSEA OR VOMITING, #15 TAB 0 Refills Prov: Jose Antonio Wray MD 10/01/17 Disposition: 01 DISCHARGE HOME Condition: Good Jose Antonio Wray MD Oct 01, 2017 07:25
[2017-10-01] MEDS ORDERED: SODIUM CHLORIDE 0.9% FLUSH 10 ML FLUSH IV FLUSH PRN (07:30)
[2017-10-01 07:37] VITALS: O2SAT 96
[2017-10-01 07:45] LABS: AUTOMATED NEUTROPHIL # 7.6 TH/MM3 (1.8-7.7); BASOPHIL % 0.3 % (0.0-2.0); EOSINOPHIL % 0.1 % (0.0-4.0); HEMATOCRIT 36.4 % (35.0-46.0); LYMPH % 4.7 % (9.0-44.0); LYMPHOCYTE # 0.4 TH/MM3 (1.0-4.8); MEAN CELL VOLUME 91.9 FL (80.0-100.0); MEAN CORPUSCULAR HEMOGLOBIN 30.3 PG (27.0-34.0); MEAN PLATELET VOLUME 7.8 FL (7.0-11.0); MONO % 5.3 % (0.0-8.0); MONOCYTE # 0.4 TH/MM3 (0-0.9); NEUT % 89.6 % (16.0-70.0); PLATELET COUNT 419 TH/MM3 (150-450); RED BLOOD COUNT 3.96 MIL/MM3 (4.00-5.30); RED CELL DISTRIBUTION WIDTH 13.8 % (11.6-17.2); WHITE BLOOD COUNT 8.4 TH/MM3 (4.0-11.0)
[2017-10-01 07:53] LABS: CHLORIDE 101 MEQ/L (98-107); SODIUM (NA) 135 MEQ/L (136-145)
[2017-10-01 07:56] LABS: CALCIUM 8.5 MG/DL (8.5-10.1)
[2017-10-01 07:57] LABS: ALBUMIN 2.6 GM/DL (3.4-5.0); BICARBONATE 29.4 MEQ/L (21.0-32.0); BLOOD UREA NITROGEN 13 MG/DL (7-18); GLUCOSE,RANDOM 152 MG/DL (74-106)
[2017-10-01 08:00] LABS: ALT (GPT) 13 U/L (10-53); AST (GOT) 19 U/L (15-37); GLOMERULAR FILTRATION RATE 94 ML/MIN (>89)
[2017-10-01 08:01] LABS: TOTAL BILIRUBIN ADULT 0.4 MG/DL (0.2-1.0)
[2017-10-01 08:02] LABS: ALKALINE PHOSPHATASE 177 U/L (45-117); TOTAL PROTEIN 6.7 GM/DL (6.4-8.2)
[2017-10-01] MEDS ORDERED: IOHEXOL 350 MG/ML 10 ML VIAL (for RAD DIAG) IVCONTRAST ONE (08:29)
--- NOTE | 2017-10-01 09:01 | RADRPT ---
EXAM DATE/TIME: 10/01/2017 08:15 [facility] COMPARISON: No previous studies available for comparison. INDICATIONS : Left upper abdominal pain with nausea since this morning. IV CONTRAST: 75 cc Omnipaque 350 (iohexol) IV ORAL CONTRAST: No oral contrast ingested. RADIATION DOSE: 19.07 CTDIvol (mGy) MEDICAL HISTORY : Hypercholesterolemia. Hypertension. Gastroesophageal reflux disease.Ulcers, thyroid disease, IBS SURGICAL HISTORY : Thyroidectomy. Bladder lift, umbiblical hernia, orthopedic ENCOUNTER: Initial ACUITY: 1 day PAIN SCALE: 7/10 LOCATION: Left upper quadrant TECHNIQUE: Volumetric scanning of the abdomen and pelvis was performed. Using automated exposure control and ad justment of the mA and/or kV according to patient size, radiation dose was kept as low as reasonably achievable to obtain optimal diagnostic quality images. DICOM format image data is available electro nically for review and comparison. FINDINGS: LOWER LUNGS: There is a small left pleural effusion. There is mild consolidation in both posterior lung bases with small areas of air bronchograms. LIVER: The liver is normal in size and shape with no focal mass. There is moderate intrahepatic ductal dilat ation and marked extrahepatic biliary ductal dilatation with dilatation common bile duct measuring up to 1.6-1.7 cm. The common bile duct tapers down near the pancreas with no definite filling defect or mass. The gallbladder appears mildly distended but no calcified gallstones or wall thickening. SPLEEN: Normal size without lesion. Ascites is noted surrounding the spleen. PANCREAS: Appears normal in size and shape with no pancreatic ductal dilatation. There is no distinct mass. KIDNEYS: Normal in size and shape. There is no mass, stone or hydronephrosis. ADRENAL GLANDS: Within normal limits. VASCULAR: There is no aortic aneurysm. BOWEL/MESENTERY: Multiple diverticuli are present greatest in the spleen with no focal wall thickening or inflammatory change. Small to moderate amount of ascitic fluid is present in the pelvis. There are multiple loops of nondilated small bowel ascitic fluid in the mesenteric ABDOMINAL WALL: Within normal limits. RETROPERITONEUM: There is no lymphadenopathy. BLADDER: No wall thickening or mass. REPRODUCTIVE: Within normal limits. INGUINAL: There is no lymphadenopathy or hernia. MUSCULOSKELETAL: Osteopenia, degenerative change and scoliosis are present. There are apparent sacral insufficiency fr actures bilaterally left greater than right with sclerosis and patchy density. There is apparent dest ructive change involving the anterior left pubic rami with central lucency and cortical destruction. There is a healing fracture of the left inferior pubic rami as well. CONCLUSION: 1. Marked intrahepatic and extrahepatic there ductal dilatation with no identifiable filling defect o r mass. The gallbladder is mildly distended with no calcified gallstones. 2. Apparent destructive change involving the left superior pubic rami concern for metastatic disease. 3. Multiple sacral insufficiency fractures with lucency and sclerosis. 4. Nonspecific bowel gas pattern which may represent a mild ileus. Small left pleural effusion with mild consolidation in the posterior lower lobes. Chris Cespedes MD on October 01, 2017 at 8:52 Board Certified Radiologist. This report was verified electronically.
[2017-10-01 09:16] VITALS: BP 165/94; PULSE 78; RESP 16; O2SAT 96
[2017-10-01 09:56] LABS: BILIRUBIN, URINE NEG (NEG); BLOOD, URINE NEG (NEG); GLUCOSE,URINE NEG (NEG); KETONE, URINE NEG (NEG); NITRITE,URINE NEG (NEG); URINE COLOR YELLOW (YELLW/STRAW); URINE LEUKOCYTE ESTERASE NEG (NEG)
[2017-10-01 10:01] LABS: AMORPHOUS SEDIMENT, URINE FEW; SQUAMOUS EPITHELIAL CELL URINE 0-5 /hpf (0-5)
--- NOTE | 2017-10-01 11:32 | RADRPT ---
EXAM DATE/TIME: 10/01/2017 11:19 [facility] COMPARISON: CT BRAIN W/O CONTRAST, August 31, 2017, 21:14. INDICATIONS : Altered mental status. RADIATION DOSE: 52.57 CTDIvol (mGy) MEDICAL HISTORY : Hypercholesterolemia. Hypertension. Gastroesophageal reflux disease.Ulcers, IBS SURGICAL HISTORY : Thyroidectomy. Bladder lift, umbiblical hernia, orthopedic ENCOUNTER: Initial ACUITY: 1 day PAIN SCALE: 0/10 LOCATION: cranial TECHNIQUE: Multiple contiguous axial images were obtained of the head. Using automated exposure control and adj ustment of the mA and/or kV according to patient size, radiation dose was kept as low as reasonably a chievable to obtain optimal diagnostic quality images. DICOM format image data is available electro nically for review and comparison. FINDINGS: CEREBRUM: The ventricles are normal for age with diffuse atrophic change again noted. No evidence of midline sh ift, mass lesion, hemorrhage or acute infarction. An old small lacunar infarct is again noted in the left thalamus. No extra-axial fluid collections are seen. POSTERIOR FOSSA: The cerebellum and brainstem are intact. The 4th ventricle is midline. The cerebellopontine angle i s unremarkable. EXTRACRANIAL: The visualized portion of the orbits is intact. SKULL: The calvaria is intact. No evidence of skull fracture. CONCLUSION: 1. No acute hemorrhage or evidence of infarction. 2. 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 3. Moderate atrophic changes. Chris Cespedes MD on October 01, 2017 at 11:28 Board Certified Radiologist. This report was verified electronically.
[2017-10-01] MEDS ORDERED: ZOFR4TAB PO (11:59)
[2017-10-01 12:01] VITALS: BP 128/66
== END 2017-10-01 14:45 | disposition home or self-care (01) ==
LOC: PHED 07:09
DX: R10.9 Unspecified abdominal pain (principal); I10 Essential (primary) hypertension; E78.00 Pure hypercholesterolemia, unspecified; E07.9 Disorder of thyroid, unspecified; F32.9 Major depressive disorder, single episode, unspecified; K21.9 Gastro-esophageal reflux disease without esophagitis; Z79.899 Other long term (current) drug therapy
CPT/HCPCS: 70450; 74177; 80053; 81001; 83605; 83690; 85025; 99285; Q9967

== ENCOUNTER 2017-10-02 00:50 | Inpatient (IN) | payer MEDICARE, BC ==
[~2017-10-02] VITALS: Ht 167.6 cm; Wt 77.9 kg
[~2017-10-02 00:50] MED LIST changes: +ZOFR4TAB PO
[2017-10-02] MEDS ORDERED: SODIUM CHLOR 0.9% 1000 ML INJ 1,000 ML IV SCH (01:55)
[2017-10-02 01:59] VITALS: BP 133/62; PULSE 85; RESP 18; O2SAT 100
[2017-10-02] MEDS ORDERED: SODIUM CHLORIDE 0.9% FLUSH 10 ML FLUSH IV FLUSH PRN ×2 (02:00→04:00)
[2017-10-02] MEDS ORDERED: ONDANSETRON HCL 4 MG/2 ML VIAL IVP ONE (02:00)
--- NOTE | 2017-10-02 02:09 | PD ---
HPI Chief Complaint: GI Complaint Time Seen by Provider: 01:36 Travel History International Travel<30 days: No Contact w/Intl Traveler<30days: No Traveled to known affect area: No History of Present Illness HPI [id number] woman who presents to the emergency department complaining of abdominal pain and vomiting. She has a history of hypertension, anxiety, IBS, and some kind of implant or device that is related to fecal incontinence although she is really not able to describe what this implant is. She was admitted to the hospital and the end of August for fall with pelvic fractures and rhabdomyolysis. She has been at [facility] and rehabilitation. She was brought to the emergency department at [place] this morning for abdominal pain with vomiting. Her workup included labs and CT imaging. CT showed ductal dilatation of the intra-and extrahepatic ducts, and some distention to the gallbladder without any stones. Multiple fractures in the pelvis with some destructive changes concerning for metastatic disease. She was discharged back to [facility] and rehabilitation. She apparently started having worsening symptoms there, as well as progressive darker colored emesis and was referred back to the emergency department. History is obtained from transfer records and old records primarily. History Past Medical History Narrative Medical Hypertension Anxiety IBS History of C. difficile Hypothyroidism Hyperlipidemia Menopausal: Yes Social History Alcohol Use: No Tobacco Use: No Allergies-Medications (Allergen,Severity, Reaction): Coded Allergies: [id number]-Drw Reductase Inhibitor (Verified Allergy, Unknown, 10/01/17) Uncoded Allergies: STATINS (Adverse Reaction, Severe, Nausea, muscle pain, 11/29/15) Reported Meds & Prescriptions Reported Meds & Active Scripts Active Zofran (Ondansetron HCl) 4 Mg Tab 4 Mg PO Q8HR PRN Acidophilus/l-Sporogenes (Lactobacillus Acidophilus) 35 Million Cell-25 Million Cell Tab 1 Tab PO Q12HR Gabapentin 100 Mg Cap 200 Mg PO TID Hydrocodone-Acetamin 5-325 mg (Hydrocodone/Acetaminophen) 5 Mg-325 Mg Tablet 1 Tab PO Q6H PRN Ibuprofen 600 Mg Tab 600 Mg PO Q8H Flagyl (Metronidazole) 500 Mg Tab 500 Mg PO Q8HR Reported Prednisone 10 Mg Tab 10 Mg PO DAILY Potassium Chloride ER (Potassium Chloride) 10 Meq Cap 10 Meq PO DAILY Sertraline (Sertraline HCl) 100 Mg Tab 100 Mg PO DAILY Levothyroxine (Levothyroxine Sodium) 88 Mcg Tab 88 Mcg PO DAILY Atenolol 50 Mg Tab 50 Mg PO DAILY Tylenol-Codeine #4 (Acetaminophen-Codeine) 300-60 mg Tab 1 Tab PO Q4H PRN Review of Systems ROS Limitations: Clinical Condition Physical Exam Narrative GENERAL: Ill-appearing 87-year-old woman, vomiting with dark colored emesis. SKIN: Focused skin assessment warm/dry. Decreased skin turgor. HEAD: Atraumatic. Normocephalic. EYES: Pupils equal and round. No scleral icterus. No injection or drainage. ENT: No nasal bleeding or discharge. Mucous membranes pink and moist. NECK: Trachea midline. No JVD. CARDIOVASCULAR: Regular rate and rhythm. No murmur appreciated. RESPIRATORY: No accessory muscle use. Clear to auscultation. Breath sounds equal bilaterally. GASTROINTESTINAL: Abdomen soft, moderately distended. Tympanic to percussion. No definite tenderness. MUSCULOSKELETAL: No obvious deformities. No clubbing. No cyanosis. No edema. NEUROLOGICAL: A little bit listless and confused.. No obvious cranial nerve deficits. Motor grossly within normal limits. Normal speech. Data Data Last Documented VS Vital Signs Date Time Temp Pulse Resp B/P (MAP) Pulse Ox O2 Delivery O2 Flow Rate FiO2 10/02/17 01:59 85 18 133/62 (85) 100 Nasal Cannula 4.00 Orders Orders Complete Blood Count With Diff (10/02/17 01:55) Comprehensive Metabolic Panel (10/02/17 01:55) Lipase (10/02/17 01:55) Lactic Acid (10/02/17 01:55) Abdomen, Flat & Upright (10/02/17 ) Iv Access Insert/Monitor (10/02/17 01:55) Ecg Monitoring (10/02/17 01:55) Oximetry (10/02/17 01:55) NPO (10/02/17 01:55) Ondansetron Inj (Zofran Inj) (10/02/17 02:00) Sodium Chlor 0.9% 1000 Ml Inj (Ns 1000 M (10/02/17 01:55) Sodium Chloride 0.9% Flush (Ns Flush) (10/02/17 02:00) Electrocardiogram (10/02/17 01:55) Pantoprazole Inj (Protonix Inj) (10/02/17 02:15) Us Abdomen Gallbladder (10/02/17 ) Piperacil-Tazo 3.375 Gm Premix (Zosyn 3. (10/02/17 03:45) Admit Order (Ed Use Only) (10/02/17 ) Labs Laboratory Tests Test 10/02/17 02:15 10/02/17 02:30 White Blood Count 24.1 TH/MM3 Red Blood Count 4.59 MIL/MM3 Hemoglobin 14.2 GM/DL Hematocrit 43.8 % Mean Corpuscular Volume 95.3 FL Mean Corpuscular Hemoglobin 30.9 PG Mean Corpuscular Hemoglobin Concent 32.4 % Red Cell Distribution Width 16.0 % Platelet Count 470 TH/MM3 Mean Platelet Volume 9.0 FL Neutrophils (%) (Auto) 84.7 % Lymphocytes (%) (Auto) 3.1 % Monocytes (%) (Auto) 11.8 % Eosinophils (%) (Auto) 0.2 % Basophils (%) (Auto) 0.2 % Neutrophils # (Auto) 20.4 TH/MM3 Lymphocytes # (Auto) 0.7 TH/MM3 Monocytes # (Auto) 2.9 TH/MM3 Eosinophils # (Auto) 0.0 TH/MM3 Basophils # (Auto) 0.0 TH/MM3 CBC Comment AUTO DIFF Blood Urea Nitrogen 26 MG/DL Creatinine 1.54 MG/DL Random Glucose 149 MG/DL Total Protein 6.8 GM/DL Albumin 2.6 GM/DL Calcium Level 8.9 MG/DL Alkaline Phosphatase 157 U/L Aspartate Amino Transf (AST/SGOT) 21 U/L Alanine Aminotransferase (ALT/SGPT) 12 U/L Total Bilirubin 0.4 MG/DL Sodium Level 135 MEQ/L Potassium Level 5.1 MEQ/L Chloride Level 100 MEQ/L Carbon Dioxide Level 24.7 MEQ/L Anion Gap 10 MEQ/L Estimat Glomerular Filtration Rate 32 ML/MIN Lipase 93 U/L Lactic Acid Level 2.7 mmol/L MDM Medical Decision Making Medical Screen Exam Complete: Yes Emergency Medical Condition: Yes Interpretation(s) LABS: CBC remarkable for white count of 24,000, platelets 470 CMP Lactate 2.7 Lipase Differential Diagnosis Obstruction, a malfunction with this implant, GI bleed, gallbladder disease, other Narrative Course Medical decision making This is a 87-year-old woman presents to the emergency department with nausea vomiting abdominal pain distention. CT scan showed some abnormality of the gallbladder. Will repeat an ultrasound. She appears distended or obstructed. Will repeat a flat and upright abdomen. Emesis is dark colored suggestive of GI bleed. Will give some IV pantoprazole. Plan on admission for further evaluation. Diagnosis Primary Impression: Cholecystitis Additional Impressions: Choledocholithiasis Upper GI bleed Admitting Information Admitting Physician Requests: Admit Disposition: 01 DISCHARGE HOME Condition: Stable Arron Rg MD Oct 02, 2017 02:09
[2017-10-02] MEDS ORDERED: PANTOPRAZOLE SODIUM 40 MG VIAL IV PUSH ONE (02:15)
--- NOTE | 2017-10-02 02:31 | RADRPT ---
EXAM DATE/TIME: 10/02/2017 02:02 [facility] COMPARISON: No previous studies available for comparison. INDICATIONS : Ongoing gastrointestinal problems. MEDICAL HISTORY : Hypercholesterolemia. Hypertension Gastroesophageal reflux disease. IBS SURGICAL HISTORY : Umbilical hernia repair. Thyroidectomy Bladed lift ENCOUNTER: Subsequent ACUITY: 2 days PAIN SCORE: Non-responsive. LOCATION: Bilateral abdomen FINDINGS: Left-sided stimulator wire present. No filling defects identified within the bladder. Bowel gas patte rn nonspecific without evidence for obstruction or free air. CONCLUSION: 1. No acute findings. Christiano Gonsales MD on October 02, 2017 at 2:21 Board Certified Radiologist. This report was verified electronically.
[2017-10-02 02:57] LABS: AUTOMATED NEUTROPHIL # 20.4 TH/MM3 (1.8-7.7); BASOPHIL % 0.2 % (0.0-2.0); EOSINOPHIL % 0.2 % (0.0-4.0); HEMATOCRIT 43.8 % (35.0-46.0); HEMOGLOBIN 14.2 GM/DL (11.6-15.3); LYMPH % 3.1 % (9.0-44.0); LYMPHOCYTE # 0.7 TH/MM3 (1.0-4.8); MEAN CELL VOLUME 95.3 FL (80.0-100.0); MEAN CORPUSCULAR HEMOGLOBIN 30.9 PG (27.0-34.0); MEAN CORPUSCULAR HGB CONC 32.4 % (32.0-36.0); MONO % 11.8 % (0.0-8.0); MONOCYTE # 2.9 TH/MM3 (0-0.9); NEUT % 84.7 % (16.0-70.0); PLATELET COUNT 470 TH/MM3 (150-450); RED BLOOD COUNT 4.59 MIL/MM3 (4.00-5.30); WHITE BLOOD COUNT 24.1 TH/MM3 (4.0-11.0)
--- NOTE | 2017-10-02 03:06 | RADRPT ---
EXAM DATE/TIME: 10/02/2017 02:32 [facility] COMPARISON: No previous studies available for comparison. INDICATIONS : Nausea/vomiting. MEDICAL HISTORY : Hypercholesterolemia. Arthritis. Hernia, umbilical. Thyroid disease. Gastric ulcer. GERD. Irritable b owel syndrome. HTN. Measles. Shingles. SURGICAL HISTORY : Hysterectomy. Thyroidectomy. Bilateral cataract extraction. Bladder lift. Bilateral knee replacemen t. Blood transfusions. ENCOUNTER: Initial ACUITY: 4-6 days PAIN SCORE: 3/10 LOCATION: Right upper quadrant MEASUREMENTS: LIVER: 15.8 cm length COMMON DUCT: 16 mm RIGHT KIDNEY: 8.1 x 4.1 x 4.3 cm FINDINGS: Pancreas not well-visualized. Moderate free fluid coming around the liver. Common bile duct dilated u p to 16 mm in diameter with possible choledocholithiasis noted distally. Gallbladder sludge present. Gallbladder wall is thickened with pericholecystic fluid. Atrophic right kidney. CONCLUSION: 1. Common bile duct dilated 16 mm with probable choledocholithiasis. 2. Distended gallbladder with sludge, gallbladder wall thickening and pericholecystic fluid. 3. Mild ascites. Christiano Gonsales MD on October 02, 2017 at 3:00 Board Certified Radiologist. This report was verified electronically.
[2017-10-02 03:27] LABS: ALKALINE PHOSPHATASE 157 U/L (45-117); ALT (GPT) 12 U/L (10-53); TOTAL BILIRUBIN ADULT 0.4 MG/DL (0.2-1.0); TOTAL PROTEIN 6.8 GM/DL (6.4-8.2)
[2017-10-02 03:29] LABS: ALBUMIN 2.6 GM/DL (3.4-5.0); AST (GOT) 21 U/L (15-37); BICARBONATE 24.7 MEQ/L (21.0-32.0); BLOOD UREA NITROGEN 26 MG/DL (7-18); CALCIUM 8.9 MG/DL (8.5-10.1); CHLORIDE 100 MEQ/L (98-107); CREATININE 1.54 MG/DL (0.50-1.00); GLOMERULAR FILTRATION RATE 32 ML/MIN (>89); GLUCOSE,RANDOM 149 MG/DL (74-106); SODIUM (NA) 135 MEQ/L (136-145)
[2017-10-02] MEDS ORDERED: PIPERACIL-TAZO 3.375 GM PREMIX 50 ML IV ONE (03:45)
[2017-10-02 03:51] LABS: BANDS 11 % (0-6); LYMPHOCYTES 2 % (9-44); MONOCYTES 14 % (0-8); NEUTROPHIL # MANUAL DIFF 20.2 TH/MM3 (1.8-7.7); POLYS (SEG NEUTROPHILS) 73 % (16-70)
[2017-10-02] MEDS ORDERED: SENNOSIDES 8.6 MG TAB PO PRN (04:00)
[2017-10-02] MEDS ORDERED: BISACODYL 10 MG SUPP RECTAL PRN (04:00)
[2017-10-02] MEDS ORDERED: ONDANSETRON HCL 4 MG/2 ML VIAL IVP PRN (04:00)
[2017-10-02] MEDS ORDERED: MORPHINE SULFATE 2 MG/ML INJ IV PUSH PRN ×2 (04:00)
[2017-10-02] MEDS ORDERED: LACTULOSE SYRUP 20 GM/30 ML CUP PO PRN (04:00)
[2017-10-02] MEDS ORDERED: MAGNESIUM HYDROXIDE SUSP 30 ML CUP PO PRN (04:00)
[2017-10-02] MEDS ORDERED: ACETAMINOPHEN 325 MG TAB PO PRN (04:00)
[2017-10-02] MEDS: SODIUM CHLOR 0.9% 1000 ML INJ 1,000 ML IV SCH ×2 (04:28→13:50)
[2017-10-02 04:32] VITALS: BP 138/54; PULSE 105; RESP 18; O2SAT 98
--- NOTE | 2017-10-02 04:42 | HHI.HP ---
[facility] No Primary Care Physician Admission Diagnosis Cholecystitis, choledocholithiasis, GI bleed Diagnoses: (1) Choledocholithiasis Diagnosis: Principal (2) Cholecystitis Diagnosis: Principal (3) Lactic acidosis Diagnosis: Principal (4) SMITHA (acute kidney injury) Diagnosis: Principal (5) Upper GI bleed Diagnosis: Principal Travel History International Travel<30 Days: No Contact w/Intl Traveler <30 Da: No Traveled to Known Affected Are: No History of Present Illness This is an 87-year-old female with a PMH of Anxiety, HTN, Hyperlipidemia, h/o C Diff and IBS who was brought to the ER from [facility] for abdominal pain , nausea and vomiting. Seen at [facility] 10/01/17 for similar complaints, labs essentially unremarkable, CT Abd/Pelvis w/ marked intrahepatic/ extrahepatic ductal dilatation w/ no filling defect or mass, mildly distended gallbladder, destructive change to pelvis w/ concern for metastatic disease and possible mild ileus. Was given Zofran and d/c'd home w/ outpatient follow up. Returns now w/ ongoing complaints in addition to vomiting w/ dark-colored emesis. Pt poor historian, unable to obtain much history in detail, but is able to tell me she has RUQ/RLQ pain, 8/10, worse w/ movement. Not aware of any fever or chills. On arrival, BP 165/83, HR 72, O2 sat 94% RA, Afebrile. WBC 24.1, bandemia 11%. Creatinine 1.54, previously 0.60 on 10/01/2017. Lactic Acid 2.7. UA negative for UTI. Abdominal X-ray with no acute findings. Gallbladder US CBD dilatation 16 mm with probable choledocholithiasis and cholecystitis. S/p Zosyn in ER. Review of Systems Except as stated in HPI: all other systems reviewed are Neg ROS: 14 point review of systems otherwise negative. Past Family Social History Past Medical History PMH: Anxiety, HTN, Hyperlipidemia, h/o C Diff and IBS Past Surgical History PAST SURGICAL HISTORY: Cataract Surgery, Hernia Repair, Hysterectomy, Bladder Lift, Bilateral Knee Replacements, Thyroidectomy Allergies: Coded Allergies: Hlyqrbj-Hwg-Lfs Reductase Inhibitor (Verified Allergy, Unknown, 10/01/17) Uncoded Allergies: STATINS (Adverse Reaction, Severe, Nausea, muscle pain, 11/29/15) Family History PAST FAMILY HISTORY: Reviewed. No h/o DM or CAD Social History PAST SOCIAL HISTORY: Negative for alcohol, tobacco or drugs. Physical Exam Vital Signs Vital Signs Date Time Temp Pulse Resp B/P (MAP) Pulse Ox O2 Delivery O2 Flow Rate FiO2 10/02/17 01:59 85 18 133/62 (85) 100 Nasal Cannula 4.00 Physical Exam PE: GENERAL: Pleasant elderly white female in no acute distress. Dark-colored emesis in bag. HEENT: PERRLA, EOMI. No scleral icterus or conjunctival pallor. No lid lag or facial droop. CARDIOVASCULAR: Regular rate and rhythm. No obvious murmurs to auscultation. No chest tenderness to palpation. RESPIRATORY: No obvious rhonchi or wheezing. Clear to auscultation. Breath sounds equal bilaterally. GASTROINTESTINAL: Abdomen soft, distended, tender to palpation. BS normal. MUSCULOSKELETAL: Extremities without clubbing, cyanosis, or edema. No obvious deformities. NEUROLOGICAL: Awake, alert and oriented x4. No focal neurologic deficits. Moving both upper and lower extremities spontaneously. Laboratory Laboratory Tests Test 10/02/17 02:15 10/02/17 02:30 White Blood Count 24.1 Red Blood Count 4.59 Hemoglobin 14.2 Hematocrit 43.8 Mean Corpuscular Volume 95.3 Mean Corpuscular Hemoglobin 30.9 Mean Corpuscular Hemoglobin Concent 32.4 Red Cell Distribution Width 16.0 Platelet Count 470 Mean Platelet Volume 9.0 Neutrophils (%) (Auto) 84.7 Lymphocytes (%) (Auto) 3.1 Monocytes (%) (Auto) 11.8 Eosinophils (%) (Auto) 0.2 Basophils (%) (Auto) 0.2 Neutrophils # (Auto) 20.4 Lymphocytes # (Auto) 0.7 Monocytes # (Auto) 2.9 Eosinophils # (Auto) 0.0 Basophils # (Auto) 0.0 CBC Comment AUTO DIFF Differential Total Cells Counted 100 Neutrophils % (Manual) 73 Band Neutrophils % 11 Lymphocytes % 2 Monocytes % 14 Neutrophils # (Manual) 20.2 Differential Comment FINAL DIFF MANUAL Platelet Estimate HIGH Platelet Morphology Comment NORMAL Blood Urea Nitrogen 26 Creatinine 1.54 Random Glucose 149 Total Protein 6.8 Albumin 2.6 Calcium Level 8.9 Alkaline Phosphatase 157 Aspartate Amino Transf (AST/SGOT) 21 Alanine Aminotransferase (ALT/SGPT) 12 Total Bilirubin 0.4 Sodium Level 135 Potassium Level 5.1 Chloride Level 100 Carbon Dioxide Level 24.7 Anion Gap 10 Estimat Glomerular Filtration Rate 32 Lipase 93 Lactic Acid Level 2.7 Result Diagram: 10/02/1721410/02/17214 Caprini VTE Risk Assessment Caprini VTE Risk Assessment: No/Low Risk (score <= 1) Caprini Risk Assessment Model Point Value = 1 Point Value = 2 Point Value = 3 Point Value = 5 Age 41-60 Minor surgery BMI > 25 kg/m2 Swollen legs Varicose veins or History of unexplained or recurrent spontaneous Oral contraceptives or hormone replacement Sepsis (< 1 month) Serious lung disease, including pneumonia (< 1 month) Abnormal pulmonary function Acute myocardial infarction Congestive heart failure (< 1 month) History of inflammatory bowel disease Medical patient at bed rest Age 61-74 Arthroscopic surgery Major open surgery (> 45 min) Laparoscopic surgery (> 45 min) Malignancy Confined to bed (> 72 hours) Immobilizing plaster cast Central venous access Age >= 75 History of VTE Family history of VTE Factor V Leiden Prothrombin [id number] Lupus anticoagulant Anticardiolipin antibodies Elevated serum homocysteine Heparin-induced thrombocytopenia Other congenital or acquired thrombophilia Stroke (< 1 month) Elective arthroplasty Hip, pelvis, or leg fracture Acute spinal cord injury (< 1 month) Prophylaxis Regimen Total Risk Factor Score Risk Level Prophylaxis Regimen 0-1 Low Early ambulation 2 Moderate Order ONE of the following: *Sequential Compression Device (SCD) *Heparin 5000 units SQ BID 3-4 Higher Order ONE of the following medications: *Heparin 5000 units SQ TID *Enoxaparin/Lovenox 40 mg SQ daily (WT < 150 kg, CrCl > 30 mL/min) *Enoxaparin/Lovenox 30 mg SQ daily (WT < 150 kg, CrCl > 10-29 mL/min) *Enoxaparin/Lovenox 30 mg SQ BID (WT < 150 kg, CrCl > 30 mL/min) AND/OR *Sequential Compression Device (SCD) 5 or more Highest Order ONE of the following medications: *Heparin 5000 units SQ TID (Preferred with Epidurals) *Enoxaparin/Lovenox 40 mg SQ daily (WT < 150 kg, CrCl > 30 mL/min) *Enoxaparin/Lovenox 30 mg SQ daily (WT < 150 kg, CrCl > 10-29 mL/min) *Enoxaparin/Lovenox 30 mg SQ BID (WT < 150 kg, CrCl > 30 mL/min) AND *Sequential Compression Device (SCD) Assessment and Plan Problem List: (1) Cholecystitis ICD Code: K81.9 - Cholecystitis, unspecified Status: Acute (2) Choledocholithiasis ICD Code: K80.50 - Calculus of bile duct without cholangitis or cholecystitis without obstruction Status: Acute (3) Lactic acidosis ICD Code: E87.2 - Acidosis (4) Upper GI bleed ICD Code: K92.2 - Gastrointestinal hemorrhage, unspecified Status: Acute (5) SMITHA (acute kidney injury) ICD Code: N17.9 - Acute kidney failure, unspecified Assessment and Plan A/P: 1. Cholecystitis: abdominal pain, nausea/vomiting. Gallbladder US w/ gallbladder wall thickening, +leukocytosis w/ bandemia. S/p Zosyn in ER, will continue w/ IV Abx. 2. Choledocholithiasis: CBD dilatation 16mm w/ probable choledocholithiasis on Gallbladder US, images reviewed by me. Consult GI for further eval/ intervention, will likely need Gen Sx eval for surgical intervention. 3. Upper GI Bleed: +hematemesis, s/p Protonix in ER, will continue w/ Protonix , hold ASA/NSAIDs, Consult GI. Hgb 14.2, recheck Hgb 4. Lactic Acidosis: Lactic Acid 2.7, likely secondary to dehydration, IVF, check repeat Lactic Acid. 5. SMITHA: Creatinine 1.57, previously 0.60 on 10/01/17, U/a negative for UTI, IVF for hydration, repeat labs in am. 6. DVT Prophylaxis: SCD/Teds. 7. Social work for d/c planning as needed. 8. Case discussed w/ ER physician at length, labs/records/imaging reviewed by me. Physician Certification 2 Midnight Certification Type: Admission for Inpatient Services Order for Inpatient Services The services are ordered in accordance with Medicare regulations or non- Medicare payer requirements, as applicable. In the case of services not specified as inpatient-only, they are appropriately provided as inpatient services in accordance with the 2-midnight benchmark. Estimated LOS (days): 2 days is the estimated time the patient will need to remain in the hospital, assuming treatment plan goals are met and no additional complications. Post-Hospital Plan: Not yet determined Constance Ewing MD Oct 02, 2017 04:42
[2017-10-02] MEDS: SODIUM CHLORIDE 0.9% FLUSH 10 ML FLUSH IV FLUSH SCH ×2 (08:28→21:35)
[2017-10-02] MEDS: DOCUSATE SODIUM 50 MG/SENNA 8.6 MG TAB PO SCH ×2 (08:28→21:35)
[2017-10-02] MEDS: PANTOPRAZOLE SODIUM 40 MG VIAL IV PUSH SCH ×2 (08:29→21:35)
--- NOTE | 2017-10-02 08:57 | PD.CONS ---
HPI History of Present Illness This is a 87 year old female with hx c diff, IBS who presented from rehab for abd pain, n/v. There is report of dark emesis and on my evaluation she did have dark blood on her lips and gown. She c/o of LUQ pain and is tender diffusely on exam. She was seen in ER yesterday and CT 10/01 showed intra and extrahepatic ductal dilatation, no filling defect or mass, mild gb distention, concerning for mets dz pelvis, poss mild ileus. She was given meds for nausea and discharged and then came back with c/o dark emesis. GBUS shows cbd dilatation 16mm suggestive choledocholithiasis, cholecystitis. Poor historian. (Odilia Reyes) PFSH Past Medical History PMH: Anxiety, HTN, Hyperlipidemia, h/o C Diff and IBS Past Surgical History PAST SURGICAL HISTORY: Cataract Surgery, Hernia Repair, Hysterectomy, Bladder Lift, Bilateral Knee Replacements, Thyroidectomy (Odilia Reyes) Coded Allergies: Qoiaqfj-Pnp-Awu Reductase Inhibitor (Verified Allergy, Unknown, 10/01/17) Uncoded Allergies: STATINS (Adverse Reaction, Severe, Nausea, muscle pain, 11/29/15) Family History PAST FAMILY HISTORY: Reviewed. No h/o DM or CAD Social History PAST SOCIAL HISTORY: Negative for alcohol, tobacco or drugs. (Odilia Reyes) Review of Systems noncontributory (Odilia Reyes) GI Exam Vitals I&O Vital Signs Date Time Temp Pulse Resp B/P (MAP) Pulse Ox O2 Delivery O2 Flow Rate FiO2 10/02/17 05:56 10/02/17 04:39 16 10/02/17 04:32 105 18 138/54 (82) 98 Nasal Cannula 4.00 10/02/17 01:59 85 18 133/62 (85) 100 Nasal Cannula 4.00 I/O 10/01/17 10/01/17 10/01/17 10/02/17 10/02/17 10/02/17 07:00 15:00 23:00 07:00 15:00 23:00 Intake Total 1260 ml Balance 1260 ml Intake Oral 210 ml IV Total 1050 ml Imaging Last Impressions Gall Bladder Ultrasound 10/02/17 0000 Signed Impressions: Service Date/Time: Monday, October 02, 2017 02:32 - CONCLUSION: 1. Common bile duct dilated 16 mm with probable choledocholithiasis. 2. Distended gallbladder with sludge, gallbladder wall thickening and pericholecystic fluid. 3. Mild ascites. Christiano Gonsales MD Abdomen X-Ray 10/02/17 0000 Signed Impressions: Service Date/Time: Monday, October 02, 2017 02:02 - CONCLUSION: 1. No acute findings. Christiano Gonsales MD Laboratory Test 10/02/17 02:15 10/02/17 02:30 10/02/17 08:25 White Blood Count 24.1 TH/MM3 Red Blood Count 4.59 MIL/MM3 Hemoglobin 14.2 GM/DL Hematocrit 43.8 % Mean Corpuscular Volume 95.3 FL Mean Corpuscular Hemoglobin 30.9 PG Mean Corpuscular Hemoglobin Concent 32.4 % Red Cell Distribution Width 16.0 % Platelet Count 470 TH/MM3 Mean Platelet Volume 9.0 FL Neutrophils (%) (Auto) 84.7 % Lymphocytes (%) (Auto) 3.1 % Monocytes (%) (Auto) 11.8 % Eosinophils (%) (Auto) 0.2 % Basophils (%) (Auto) 0.2 % Neutrophils # (Auto) 20.4 TH/MM3 Lymphocytes # (Auto) 0.7 TH/MM3 Monocytes # (Auto) 2.9 TH/MM3 Eosinophils # (Auto) 0.0 TH/MM3 Basophils # (Auto) 0.0 TH/MM3 CBC Comment AUTO DIFF Differential Total Cells Counted 100 Neutrophils % (Manual) 73 % Band Neutrophils % 11 % Lymphocytes % 2 % Monocytes % 14 % Neutrophils # (Manual) 20.2 TH/MM3 Differential Comment FINAL DIFF MANUAL Platelet Estimate HIGH Platelet Morphology Comment NORMAL Blood Urea Nitrogen 26 MG/DL Creatinine 1.54 MG/DL Random Glucose 149 MG/DL Total Protein 6.8 GM/DL Albumin 2.6 GM/DL Calcium Level 8.9 MG/DL Alkaline Phosphatase 157 U/L Aspartate Amino Transf (AST/SGOT) 21 U/L Alanine Aminotransferase (ALT/SGPT) 12 U/L Total Bilirubin 0.4 MG/DL Sodium Level 135 MEQ/L Potassium Level 5.1 MEQ/L Chloride Level 100 MEQ/L Carbon Dioxide Level 24.7 MEQ/L Anion Gap 10 MEQ/L Estimat Glomerular Filtration Rate 32 ML/MIN Lipase 93 U/L Lactic Acid Level 2.7 mmol/L Physical Examination HEENT: PERRL; normocephalic; atraumatic; no jaundice. CHEST: diminished CARDIAC: tachy ABDOMEN: firm, dull, distended,diffusely tender; no hepatosplenomegaly; bowel sounds are present in all four quadrants. EXTREMITIES: No clubbing, cyanosis, or edema. SKIN: Normal; no rash; no jaundice. DRY BOSS: confused, minimally verbal (Odilia Reyes) Assessment and Plan Plan ASSESSMENT - abd pain, abnormal imaging - poss choledocholithiasis. CT 10/01 showed intra and extrahepatic ductal dilatation, no filling defect or mass, mild gb distention, concerning for mets dz pelvis , poss mild ileus. KUB no acute findings. US showed CBD dilatated 16mm, suggestive choledocholithiasis and cholecystitis. Isolated elevation ALP. - ?hematemesis - report of dark emesis, dark material seen on lips and gown. Per nightclub managerovernight caregiver reported material is dark green. WNL currently. - leukocytosis PLAN - EGD +/-- ERCP tomorrow - obtain consent - will need to find contact, pt unable to give informed consent at this time, d/w RN - NPO after midnight - monitor labs - notify GI of active bleeding - further recs after Dr Garcia evaluates pt - supportive care pt seen by myself and Dr Jose wooten this note is on his behalf (Odilia Reyes) Physician Comments Patient seen and examined Agree with above Continue with current supportive care Monitor labs I was called by the nurse regarding a fever and hypotension Concerns are such that she may have either sepsis and/or cholangitis We will proceed with EGD and ERCP today Further recommendations will depend on the findings (Suresh Garcia MD) Odilia Reyes Oct 02, 2017 08:57 Suresh Garcia MD Oct 02, 2017 17:49
[2017-10-02] MEDS ORDERED: PIPERACIL-TAZO 4.5 GM PREMIX 100 ML IV SCH (10:00)
[2017-10-02] MEDS ORDERED: SODIUM CHLOR 0.9% 1000 ML INJ 1,000 ML IV ONE (12:00)
[2017-10-02] MEDS ORDERED: PHENYLEPH/NS 1000 MCG/10 ML SYR IV ONE (12:00)
[2017-10-02] MEDS ORDERED: ESMOLOL HCL 100 MG/10 ML VIAL IV ONE (12:00)
[2017-10-02] MEDS ORDERED: SUCCINYLCHOLINE CHLORIDE 200 MG/10 ML VIAL IV ONE (12:00)
[2017-10-02] MEDS ORDERED: STERILE WATER FOR INJECTION 20 ML VIAL IV ONE (12:00)
[2017-10-02] MEDS ORDERED: LACTATED RINGER'S 1000 ML INJ 1,000 ML IV ONE (12:00)
[2017-10-02 12:03] VITALS: BP 87/54; PULSE 114; RESP 20; TEMP 100.1; TEMP 97.9; O2SAT 96
--- NOTE | 2017-10-02 12:30 | EKG ---
Date Performed: 10/02/2017 Time Performed: 03:39:27 PTAGE: 87 years EKG: SINUS TACHYCARDIA POSSIBLE LEFT ATRIAL ENLARGEMENT INDETERMINATE AXIS INCOMPLETE RIGHT BUND LE BRANCH BLOCK ABNORMAL RHYTHM ECG PREVIOUS TRACING : 08/31/2017 20.50 Since the previous tracing, no significant change noted DOCTOR: Brendan Johnson Interpretating Date/Time 10/02/2017 12:28:12
[2017-10-02] MEDS ORDERED: INSULIN HUMAN REGULAR 1,000 UNITS/10 ML VIAL SQ PRN (14:00)
[2017-10-02] MEDS ORDERED: POVIDONE IODINE 5% (ANTISEPSIS KIT) 4 APPLICATIONS EACH NARE PRN (14:00)
[2017-10-02] MEDS ORDERED: SODIUM CHLORID 0.9% 500 ML IV PRN (14:00)
[2017-10-02] MEDS ORDERED: CHLORHEXIDINE GLUCONATE 2 % 1 PACK (2 CLOTHS) TOPICAL PRN (14:00)
[2017-10-02] MEDS ORDERED: LACTATED RINGER'S 1000 ML IV PRN (14:00)
[2017-10-02] MEDS ORDERED: METOPROLOL TARTRATE 25 MG TAB PO PRN (14:00)
--- NOTE | 2017-10-02 15:06 | MB ---
cc: Jeremy Oshea MD DATE: 10/02/2017 ATTENDING PHYSICIAN: Constance Ewing MD REASON FOR CONSULTATION: Oncology consult, render opinion on patient with a bone lesion, suspicious for metastatic disease. HISTORY OF PRESENT ILLNESS: The patient is an 87-year-old female brought in from [facility] with complaint of nausea, vomiting, abdominal pain. The patient stated that the pain is across the upper abdomen, is associated with nausea and vomiting. She has vomited some dark emesis. When she came in, CT abdomen and pelvis showed intrahepatic and extrahepatic ductal dilatation. However, there are destructive changes in left superior pubic ramus concerning for metastatic disease. There are also multiple sacral insufficiency fractures. Oncology was consulted for further evaluation. On further questioning, in talking to her daughter, patient was admitted to the hospital in late August for a fall. At that time, she sustained a left hip fracture. The patient denies any hip pain or back pain. She only complained of the abdominal pain. She has no fever or chills. Denies any weight loss. Denies chest pressure, palpitations, shortness of breath or coughing, dysuria or hematuria. PAST MEDICAL HISTORY: 1. Recent hip fracture. 2. Osteoporosis. 3. Anxiety. 4. Hypertension. 5. Hyperlipidemia. 6. Clostridium difficile colitis. 7. Irritable bowel syndrome. 8. History of low back fracture. PAST SURGICAL HISTORY: 1. Cataract surgery. 2. Hernia repair. 3. Hysterectomy. 4. Bladder lift. 5. Bilateral knee replacement. 6. Hemithyroidectomy. FAMILY HISTORY: No cancer in the family. She has 2 daughters, all healthy. SOCIAL HISTORY: No tobacco or alcohol use. ALLERGIES: STATIN. CURRENT MEDICATIONS: Zosyn, Stella-Colace, Protonix. REVIEW OF SYSTEMS: CONSTITUTIONAL: Negative. EYES: Negative. ENT: Negative. CARDIOVASCULAR: No chest pressure or palpitation. RESPIRATORY: Shortness of breath or cough. GASTROINTESTINAL: As above. GENITOURINARY: Negative. MUSCULOSKELETAL: As above. ENDOCRINE: Negative. HEMATOLOGIC: Negative. DERMATOLOGIC: Negative. PSYCHIATRIC: Negative. NEUROLOGIC: Negative. PHYSICAL EXAMINATION: VITAL SIGNS: Temperature 100.1, blood pressure 87/54, O2 saturation 96%. GENERAL: She is alert, oriented x 3. She is complaining of abdominal pain. HEENT: Atraumatic, normocephalic. Pupils are equal, round, reactive to light. Extraocular muscles intact. No scleral icterus. Oropharynx dry mucosa. No lesion. NECK: No thyromegaly. No palpable mass. LYMPHATIC: No palpable cervical, clavicular, axillary lymph nodes. CARDIOVASCULAR: Regular, S1, S2 normal. LUNGS: Clear to auscultation anteriorly. ABDOMEN: Soft, nondistended, but is tender diffusely. No rebound, rigidity. Positive bowel sounds. EXTREMITIES: No cyanosis, clubbing, or edema. SKIN: No rash or petechiae. NEUROLOGIC: Nonfocal. LABORATORY DATA: Dated 10/02/2017, was reviewed. ASSESSMENT: 1. Bone lesion. CT abdomen and pelvis, 10/01/2017, showed apparent destructive changes involving left superior pubic rami, concerning for metastatic disease. There were also multiple sacral insufficiency fractures with lucency and sclerosis. The patient was admitted to the hospital end of August after a fall and sustained a left yaima-pelvic fracture. She was evaluated by orthopedic surgeon at that time. I have reviewed the CT scan and x-ray with the radiologist. The left superior pubic ramus lesion noted on CT scan is the same fracture that was noted end of August on x-ray. This is likely a healing fracture rather than metastatic disease. Clinically, the patient has no hip pain. No further workup is necessary at this time. 2. Abdominal pain with nausea and vomiting. CT showed intrahepatic and extrahepatic ductal dilatation. The gallbladder was distended. Ultrasound showed increased common bile duct and possible choledocholithiasis. She is awaiting esophagogastroduodenoscopy and ERCP. 3. Leukocytosis consistent with leukemoid reaction. White blood cell count was normal yesterday. 4. Renal insufficiency, likely due to the dehydration. 5. History of Clostridium difficile colitis. 6. Hypertension. 7. Hyperlipidemia. RECOMMENDATIONS: 1. Reviewed CT scan and x-ray with radiology. Lesion noted on CT scan consistent with old fracture. Continue to monitor for now. 2. Continue workup of abdominal pain per gastroenterology. Thank you, Dr. Ewing, for asking me to see this patient. MD MARSHALL Ernst/ELOISA , 02:29 PM , 03:05 PM MARTINA
--- NOTE | 2017-10-02 15:42 | PD.PROCEDR ---
GI Procedure Patient in the OR mildly confused Declining and refusing procedure although the consents were signed by her power of banking attorney her daughter The patient complains of right upper quadrant abdominal pain she wants it gone but is unable to comprehend the relationship between the procedure and her predicament Anesthesia services refusing to put the patient sleep stating that although she is confused she has not been deemed incompetent I stated to the patient and the anesthesia service is that the patient is at risk of dying due to cholangitis she has known choledocholithiasis with dilated duct with abdominal pain with fever with leukocytosis and mild elevation of liver function tests At this point in time we are waiting for the daughter to present for further action Suresh Garcia MD Oct 02, 2017 15:42
[2017-10-02] MEDS ORDERED: KETAMINE HCL 10 MG/5 ML SYRINGE IV PUSH ONE (15:48)
[2017-10-02] MEDS ORDERED: DO NOT ADM ANY ANTICOAGULANT DRUGS PRN (16:51)
[2017-10-02] MEDS ORDERED: GLUCAGON 1 MG/ML VIAL IV PUSH ONE (16:58)
[2017-10-02] MEDS ORDERED: IOHEXOL 350 MG/ML 50 ML BTL (for RAD DIAG) OTHER ONE (16:59)
[2017-10-02] MEDS ORDERED: *ONDANSETRON 4 MG VIAL PERIprocedural Use ONLY ONE (17:04)
--- NOTE | 2017-10-02 17:04 | RADRPT ---
EXAM DATE/TIME: 10/02/2017 15:48 [facility] COMPARISON: No previous studies available for comparison. INDICATIONS : Obstruction biliary duct. FLUORO TIME: 67 minutes IMAGE COUNT: 2 CONTRAST: Instilled by Ordering PhysicianDr. Garcia. MEDICAL HISTORY : Unresponsive. SURGICAL HISTORY : Unresponsive. ENCOUNTER: Subsequent ACUITY: 3 days PAIN SCORE: Non-responsive. LOCATION: Biliary Duct. FINDINGS: An ERCP was performed by the ordering physician. The images demonstrate enlarged common bile duct confirming the indication of obstruction of the bili echo duct. CONCLUSION: ERCP as above. Salvador Boyer MD on October 02, 2017 at 17:01 Board Certified Radiologist. This report was verified electronically.
[2017-10-02] MEDS: PIPERACIL-TAZO 3.375 GM PREMIX 50 ML IV SCH ×2 (17:29→23:18)
--- NOTE | 2017-10-02 17:51 | PD.PROCEDR ---
GI Procedure PROCEDURE PERFORMED EGD followed by an ERCP with sphincterotomy and balloon extraction INDICATION FOR PROCEDURE Abdominal pain, dilated common bile duct, choledocholithiasis, fever, hypotension, hematemesis PROCEDURE: The procedure, risks and benefits were discussed with Patient/POA and informed consent was obtained. Anesthesia sedated Patient with Diprivan. Patient was placed in the left lateral decubitus position. EGD: The Pentax videoscope was introduced through the oropharynx and advanced to the second portion of the duodenum under direct visualization. Retroflexion was performed in the stomach. FINDINGS: The esophagus this appeared to be unremarkable and within normal limits The stomach there was patchy erythema throughout the gastric mucosa but no ulcerations and no erosions no blood or bleeding The duodenum this was normal ERCP: Patient was placed in a prone position. The Pentax videoscope was introduced through the oropharynx and advanced to the second portion of the duodenum where the ampula was identified. FINDINGS: The ampulla appeared to be somewhat bulging but otherwise unremarkable it was also floppy and so cannulation was not easy so a needle knife sphincterotomy was performed thereafter we were able to obtain easy cannulation of the common bile duct which appeared to be significantly dilated to about 17 or 18 mm with some filling defects a generous sphincterotomy was performed then using a size 15 mm balloon I was able to extract some debris from the common bile duct no further filling defects were noted and the procedure was terminated at this point ESTIMATED BLOOD LOSS: None SPECIMENS REMOVED: None COMPLICATIONS: None IMPRESSION: Hiatal hernia Gastritis Choledocholithiasis PLAN: Supportive care Monitor labs Once her renal function is deemed to be appropriate patient should have a CT of the abdomen with contrast Suresh Garcia MD Oct 02, 2017 17:51
[2017-10-02 19:30] VITALS: BP 108/54; PULSE 107; RESP 18; TEMP 99.2; O2SAT 92
[2017-10-03 01:18] VITALS: BP 97/52; PULSE 112; RESP 18; TEMP 98.1; O2SAT 92
[2017-10-03] MEDS: SODIUM CHLORIDE 0.9% FLUSH 10 ML FLUSH IV FLUSH SCH ×2 (01:23→20:54)
[2017-10-03] MEDS: SODIUM CHLOR 0.9% 1000 ML INJ 1,000 ML IV SCH ×3 (01:24→20:54)
[2017-10-03] MEDS: PIPERACIL-TAZO 3.375 GM PREMIX 50 ML IV SCH ×4 (03:50→20:52)
[2017-10-03 04:00] VITALS: BP 99/58; PULSE 110; RESP 20; TEMP 99.9; O2SAT 91
[2017-10-03 07:59] LABS: AUTOMATED NEUTROPHIL # 17.2 TH/MM3 (1.8-7.7); BASOPHIL % 0.1 % (0.0-2.0); LYMPH % 3.5 % (9.0-44.0); LYMPHOCYTE # 0.7 TH/MM3 (1.0-4.8); MEAN CELL VOLUME 95.7 FL (80.0-100.0); MEAN CORPUSCULAR HEMOGLOBIN 31.1 PG (27.0-34.0); MEAN CORPUSCULAR HGB CONC 32.5 % (32.0-36.0); MEAN PLATELET VOLUME 8.8 FL (7.0-11.0); MONO % 15.2 % (0.0-8.0); MONOCYTE # 3.2 TH/MM3 (0-0.9); NEUT % 81.2 % (16.0-70.0); PLATELET COUNT 409 TH/MM3 (150-450); RED BLOOD COUNT 3.87 MIL/MM3 (4.00-5.30); RED CELL DISTRIBUTION WIDTH 15.9 % (11.6-17.2); WHITE BLOOD COUNT 21.2 TH/MM3 (4.0-11.0)
[2017-10-03 08:00] VITALS: BP 111/57; PULSE 112; RESP 17; TEMP 98.6; O2SAT 90
--- NOTE | 2017-10-03 08:27 | HHI.PR ---
Subjective Remarks in no acute distress. complaining of some abdominal pain. T max 100.1. daughter at the bedside. Objective Vitals Vital Signs Date Time Temp Pulse Resp B/P (MAP) Pulse Ox O2 Delivery O2 Flow Rate FiO2 10/03/17 08:00 98.6 112 17 111/57 (75) 90 10/03/17 04:00 99.9 110 20 99/58 (72) 91 10/03/17 01:18 98.1 112 18 97/52 (67) 92 10/02/17 19:30 99.2 107 18 108/54 (72) 92 10/02/17 17:18 103 16 112/55 (74) 93 Nasal Cannula 4 10/02/17 17:09 101 16 105/53 (70) 91 Nasal Cannula 4 10/02/17 17:01 101 16 111/53 (72) 93 Nasal Cannula 4 10/02/17 16:49 98.0 104 16 112/67 (82) 92 Nasal Cannula 4 10/02/17 12:03 100.1 114 20 87/54 (65) 96 I/O 10/02/17 10/02/17 10/02/17 10/03/17 10/03/17 10/03/17 07:00 15:00 23:00 07:00 15:00 23:00 Intake Total 1260 ml 1100 ml 500 ml 0 ml Balance 1260 ml 1100 ml 500 ml 0 ml Intake Oral 210 ml 50 ml 0 ml IV Total 1050 ml 1100 ml 50 ml Other 400 ml # Voids 1 # Bowel Movements 0 Result Diagram: 10/03/17 0609 10/02/17 0215 Imaging Last Impressions Gall Bladder Ultrasound 10/02/17 0000 Signed Impressions: Service Date/Time: Monday, October 02, 2017 02:32 - CONCLUSION: 1. Common bile duct dilated 16 mm with probable choledocholithiasis. 2. Distended gallbladder with sludge, gallbladder wall thickening and pericholecystic fluid. 3. Mild ascites. Christiano Gonsales MD GI Procedure 10/02/17 0000 Signed Impressions: Service Date/Time: Monday, October 02, 2017 15:48 - CONCLUSION: ERCP as above. Salvador Boyer MD Abdomen X-Ray 10/02/17 0000 Signed Impressions: Service Date/Time: Monday, October 02, 2017 02:02 - CONCLUSION: 1. No acute findings. Christiano Gonsales MD Objective Remarks GENERAL: This is a well-nourished, well-developed patient, in no apparent distress. CARDIOVASCULAR: Regular rate and regular rhythm without murmurs, gallops, or rubs. RESPIRATORY: Clear to auscultation. Breath sounds equal bilaterally. No wheezes , rales, or rhonchi. GASTROINTESTINAL: Abdomen soft, mild generalized tenderness, distended. Normal, active bowel sounds MUSCULOSKELETAL: Extremities without clubbing, cyanosis, or edema. NEURO: Alert & Oriented x4 to person, place, time, situation. Moves all ext x4 Procedures ERCP Medications and IVs Inpatient Medications Acetaminophen (Tylenol) 650 mg Q6H PRN PO FEVER/PAIN SCALE 1 TO 2; Start at 04:00 Bisacodyl (Dulcolax Supp) 10 mg DAILY PRN RECTAL SEVERE CONSITIPATION; Start at 04:00 Chlorhexidine Gluconate (Chlorhexidine 2% Cloth) 3 pack [employer] PRN TOPICAL SEE LABEL COMMENTS; Start 10/02/17 at 14:00; Stop 10/05/17 at 13:59 Glucagon (Glucagon Inj) 0.5 mg ONCE ONCE IV PUSH Last administered on at 16:59; Start 10/02/17 at 16:58; Stop 10/02/17 at 16:59; Status DC Insulin Human Regular (NovoLIN R INJ) See Protocol Table ... [employer] PRN SQ SEE PROTOCOL TABLE; Start 10/02/17 at 14:00; Stop 10/05/17 at 13:59 Iohexol (Omnipaque 350 Inj) 50 ml ONCE ONCE OTHER ; Start 10/02/17 at 16:59; Stop 10/02/17 at 17:14; Status DC Lactated Ringer's 1,000 ml @ 30 mls/hr Q24H PRN IV SEE LABEL COMMENTS; Start at 14:00; Stop 10/05/17 at 13:59 Lactulose (Lactulose Liq) 30 ml DAILY PRN PO SEVERE CONSITIPATION; Start at 04:00 Magnesium Hydroxide (Milk Of Magnesia Liq) 30 ml Q12H PRN PO Mild constipation ; Start 10/02/17 at 04:00 Metoprolol Tartrate (Lopressor) 25 mg [employer] PRN PO SEE LABEL COMMENTS; Start 10/02/17 at 14:00; Stop 10/05/17 at 13:59 Miscellaneous Information ALL NURSING DEPARTME... UNSCH PRN .XX SEE LABEL COMMENTS; Start 10/02/17 at 16:51; Stop 10/03/17 at 16:50 Morphine Sulfate (Morphine Inj) 2 mg Q3H PRN IV PUSH Pain 6-10 Last administered on 10/02/17at 04:31; Start 10/02/17 at 04:00 Ondansetron HCl (Zofran Inj) 4 mg Q6H PRN IVP NAUSEA OR VOMITING Last administered on 10/02/17at 21:35; Start 10/02/17 at 04:00 Pantoprazole Sodium (Protonix Inj) 40 mg Q12H IV PUSH Last administered on at 21:35; Start 10/02/17 at 09:00 Piperacillin Sod/ Tazobactam Sod 50 ml @ 100 mls/hr Q6H IV Last administered on 10/03/17at 03:50; Start 10/02/17 at 16:00 Povidone Iodine (Betadine 5% Antisepsis Kit) 1 applic [employer] PRN EACH NARE SEE LABEL COMMENTS; Start 10/02/17 at 14:00; Stop 10/05/17 at 13:59 Senna/Docusate Sodium (Stella-Colace) 1 tab BID PO Last administered on 10/02/17at 21:35; Start 10/02/17 at 09:00 Sennosides (Senokot) 17.2 mg Q12H PRN PO Moderate constipation; Start 10/02/17 at 04:00 Sodium Chloride 500 ml @ 30 mls/hr [id number] PRN IV SEE LABEL COMMENTS; Start 10/02/17 at 14:00; Stop 10/05/17 at 13:59 Sodium Chloride (NS Flush) 2 ml BID IV FLUSH Last administered on 10/03/17at 01: 23; Start 10/02/17 at 09:00 A/P Problem List: (1) Cholecystitis ICD Code: K81.9 - Cholecystitis, unspecified Status: Acute (2) Choledocholithiasis ICD Code: K80.50 - Calculus of bile duct without cholangitis or cholecystitis without obstruction Status: Acute (3) Lactic acidosis ICD Code: E87.2 - Acidosis (4) Upper GI bleed ICD Code: K92.2 - Gastrointestinal hemorrhage, unspecified Status: Acute (5) SMITHA (acute kidney injury) ICD Code: N17.9 - Acute kidney failure, unspecified Assessment and Plan A/P 1. Cholecystitis: abdominal pain, nausea/vomiting. Gallbladder US w/ gallbladder wall thickening, +leukocytosis w/ bandemia. will continue w/ IV Abx. 2. Choledocholithiasis: CBD dilatation 16mm w/ probable choledocholithiasis. s/p ERCP- CT of the abdomen when renal function improves. 3. Upper GI Bleed: +hematemesis, s/p Protonix in ER, will continue w/ Protonix , hold ASA/NSAIDs, Consulted GI. 4. Lactic Acidosis: Lactic Acid 2.7, likely secondary to dehydration, IVF, check repeat Lactic Acid. 5. SMITHA: continue IV fluid- BMP today pending. 6.leukocytosis- due to infection/ will monitor. Hematology/oncology evaluation appreciated. 7. DVT Prophylaxis: SCD/Teds. Cindi Hdez MD Oct 03, 2017 08:27
[2017-10-03 08:30] LABS: ALBUMIN 2.1 GM/DL (3.4-5.0); ALT (GPT) 9 U/L (10-53); AST (GOT) 14 U/L (15-37); BICARBONATE 22.7 MEQ/L (21.0-32.0); BLOOD UREA NITROGEN 45 MG/DL (7-18); CALCIUM 8.6 MG/DL (8.5-10.1); CHLORIDE 106 MEQ/L (98-107); CREATININE 2.76 MG/DL (0.50-1.00); GLOMERULAR FILTRATION RATE 16 ML/MIN (>89); GLUCOSE,RANDOM 106 MG/DL (74-106); SODIUM (NA) 139 MEQ/L (136-145)
[2017-10-03 08:31] LABS: ALKALINE PHOSPHATASE 97 U/L (45-117); TOTAL BILIRUBIN ADULT 0.5 MG/DL (0.2-1.0); TOTAL PROTEIN 6.1 GM/DL (6.4-8.2)
[2017-10-03 08:47] LABS: BANDS 12 % (0-6); LYMPHOCYTES 2 % (9-44); MONOCYTES 9 % (0-8); NEUTROPHIL # MANUAL DIFF 18.9 TH/MM3 (1.8-7.7); POLYS (SEG NEUTROPHILS) 77 % (16-70)
[2017-10-03 08:48] LABS: ACANTHOCYTES 1+ (NORMAL); OVALOCYTES 1+ (NORMAL)
[2017-10-03] MEDS: DOCUSATE SODIUM 50 MG/SENNA 8.6 MG TAB PO SCH ×2 (09:00→20:57)
[2017-10-03] MEDS: PANTOPRAZOLE SODIUM 40 MG VIAL IV PUSH SCH ×2 (10:28→20:52)
[2017-10-03 12:00] VITALS: BP 117/60; PULSE 109; RESP 17; TEMP 98.4; O2SAT 91
--- NOTE | 2017-10-03 13:55 | PD.CONS ---
Consult Service Palliative Care . Consult Requested By Dr. Cutler . Primary Care Physician Dr. Thomason . Reason for Consultation a. To assist with evaluation and management of symptoms including: pain; confusion b. To assist medical decision maker(s) with: better understanding of current medical conditions; weighing benefits/burdens of medical treatment options; making medical treatment decisions. . HPI History of Present Illness Ms. Hennessy is an 87-year-old female with a known medical history including recent upper lumbar compression fracture; recent left hemipelvis fracture; hypertension; hyperlipidemia; irritable bowel syndrome; depression; peptic ulcer disease; and hypothyroidism who was sent to the emergency department from [facility] on 10/02/17 for abdominal pain and vomiting. The patient has had some declining health for several months. She normally lives independently very close to where her daughter lives. She normally uses a cane for balance issues and there had been some increasing falls. Up until a few months ago she was driving. She was actually working up until about 7 months ago. Approximately 3-4 months ago she had a particularly painful back after a fall. Imaging revealed an upper lumbar compression fracture for which her primary care physician treated her with a back brace, a walker, and pain medication (acetaminophen with codeine). She did reasonably well until August when her daughter noticed some memory issues and even greater unsteadiness. She then suffered another serious fall and she was found on the ground on 08/31/17 and brought to the emergency department. Imaging at that time revealed fracture of the left hemipelvis and chemistries showed evidence of rhabdomyolysis. Her hospitalization was complicated by a urinary tract infection and Clostridium difficile colitis. She was discharged to [facility] on September 06. The patient began having some bilateral upper abdominal pain on 09/30/17. There was mild nausea without vomiting at that time. The patient was seen in the emergency department on 10/01/17 at which time her white blood count was 8.4 ; hemoglobin 12; platelets 419; and chemistry panel relatively normal except for an albumin level of 2.6. Urinalysis was unremarkable. CT of the abdomen/ pelvis showed marketed intrahepatic and extrahepatic ductal dilatation with no identifiable filling defect or mass. Gallbladder was mildly distended with no calcified gallstones. There was evidence of destructive change involving the left superior pubic rami and multiple sacral insufficiency fractures with lucency and sclerosis. There is a small left pleural effusion and mild consolidation in the posterior lower lobes. The patient was encouraged to follow a bland diet, continue her physical therapy, and was given odansetron for nausea. The patient returned to the emergency department on 10/02/17 now with vomiting. Pain was rated as 8 out of 10. It appeared to be more right-sided. It was worse with movement. There is no fever or chills reported. The daughter reports that vomiting was initially quite bilious and later became quite dark with some concern that this was from blood. The patient had had a history of bleeding ulcers around 2001. Initial vital signs in the emergency department on 10/02/17 were as follows: Temperature 100.1; pulse 114; respiratory rate 20; blood pressure 87/54; pulse oximetry 96% Initial physical examination done by the emergency glazing department supervisor noted the following: Patient was vomiting dark colored emesis. There was decreased skin turgor. Cardiovascular and respiratory exams were unremarkable. Abdomen was soft, moderately distended, tympanic to percussion, with no definite tenderness. Patient was somewhat listless and confused. Initial diagnostic tests in the emergency department were as follows: * CBC showed WBC 24.1; hemoglobin 14.2; platelet count 470 There were 11% band neutrophils * Amaya profile showed sodium 135; potassium 5.1; chloride 100; CO2 24.7; anion gap 10; GFR 32; creatinine 1.54; BUN 26; glucose 149; lactic acid 2.7 * Liver function studies showed total bilirubin 0.4; alkaline phosphatase 157; AST 21; ALT 12; total protein 6.8; albumin 2.6 * Lipase was 93 * Abdominal/pelvic CT results noted above * Ultrasound of the gallbladder showed that the common bile duct was dilated to 16 mm with probable choledocholithiasis. Gallbladder was distended with sludge. There was gallbladder wall thickening and pericholecystic fluid. Mild ascites was noted The patient was started on intravenous pantoprazole. [facility]. Gastroenterology was consulted. Hematology/oncology was consulted because of the question of metastatic disease in the pelvis/sacrum. Films were reviewed again and the oncologist felt the imaging changes were more likely due to healing fractures. Gastroenterology performed EGD and ERCP with sphincterotomy and balloon extraction on 10/02/17. EGD revealed an unremarkable esophagus; patchy erythema throughout the gastric mucosa without definite ulcerations or erosions or bleeding; normal duodenum. ERCP revealed a bulging ampulla. Needle-knife sphincterotomy was necessary to cannulate. The common bile duct. Some debris was extracted from the common bile duct and no further filling defects were noted. Was dilated to 17 or 18 mm . At time of my visit this morning, patient can awaken but is intermittently confused and clearly does not want to speak. She endorses that she is in pain but will not quantify or qualify it. She is thirsty and remains NPO. . Function/Cognitive Trajectory Trajectory is described in the HPI above. . Review of Systems ROS Limitations: Clinical Condition (Patient is confused. Review of systems taken as well as possible from patient's daughter and from available medical records.) Constitutional: COMPLAINS OF: Fatigue, Fever, Change in appetite, Pain, Generalized weakness Endocrine: DENIES: Polydipsia, Polyuria, Polyphagia Eyes: DENIES: Eye pain Ears, nose, mouth, throat: DENIES: Hearing loss, Toothache Respiratory: DENIES: Apneas, Wheezing, Sputum production, Shortness of breath Cardiovascular: DENIES: Chest pain, Palpitations, Dyspnea on Exertion, Lower Extremity Edema Gastrointestinal: COMPLAINS OF: Abdominal pain, Nausea, Vomiting, Dyspepsia or heartburn, Vomiting blood Genitourinary: COMPLAINS OF: Urinary incontinence Musculoskeletal: COMPLAINS OF: Joint pain, DENIES: Neck pain Immunologic/Allergic: DENIES: Eczema Neurologic: COMPLAINS OF: Abnormal gait, DENIES: Headache, Paresthesias, Seizures, Tremor Psychiatric: COMPLAINS OF: Confusion, Depression Past Family Social History Coded Allergies: Cysbien-Ory-Sup Reductase Inhibitor (Verified Allergy, Unknown, 10/01/17) Uncoded Allergies: STATINS (Adverse Reaction, Severe, Nausea, muscle pain, 11/29/15) Past Medical History Hypertension Hyperlipidemia Irritable bowel syndrome Peptic ulcer disease with history of bleeding in 2001 Hypothyroidism Osteoarthritis Osteoporosis Depression History of migraines Degenerative spine disease . Past Surgical History PAST SURGICAL HISTORY: Cataract Surgery, Hernia Repair, Hysterectomy, Bladder Lift, Bilateral Knee Replacements, Thyroidectomy . Reported Medications Medications at the rehab facility included the following: * Metronidazole 500 mg tablets; one by mouth every 8 hours * Atenolol 50 mg tablet; one by mouth daily * Ibuprofen 600 mg tablets; one by mouth every 8 hours * Acetaminophen plus codeine No. 4; one by mouth every 4 hours as needed for pain * Gabapentin 200 mg by mouth 3 times daily * Sertraline 100 mg tablet; one by mouth daily * Potassium chloride extended release 10 mEq capsule; one by mouth daily * Zofran 4 mg tablet; one by mouth every 8 hours as needed for nausea/vomiting * Lactobacillus acidophilus; 1 tab by mouth every 12 hours * Prednisone 10 mg tablet; one by mouth daily * Levothyroxine 88 mcg; one by mouth daily . Current Medications Medications (Trade) Dose Ordered Sig/Trey Route Start Time Stop Time Status Last Admin Sodium Chloride 1,000 ml @ 100 mls/hr Q10H IV 10/02/17 03:56 10/03/17 10:28 (NS Flush) 2 ml UNSCH PRN IV FLUSH 10/02/17 04:00 (NS Flush) 2 ml BID IV FLUSH 10/02/17 09:00 10/03/17 01:23 (Zofran Inj) 4 mg Q6H PRN IVP 10/02/17 04:00 10/02/17 21:35 (Tylenol) 650 mg Q6H PRN PO 10/02/17 04:00 (Morphine Inj) 1 mg Q3H PRN IV PUSH 10/02/17 04:00 10/03/17 10:45 (Morphine Inj) 2 mg Q3H PRN IV PUSH 10/02/17 04:00 10/02/17 04:31 (Stella-Colace) 1 tab BID PO 10/02/17 09:00 10/02/17 21:35 (Milk Of Magnesia Liq) 30 ml Q12H PRN PO 10/02/17 04:00 (Senokot) 17.2 mg Q12H PRN PO 10/02/17 04:00 (Dulcolax Supp) 10 mg DAILY PRN RECTAL 10/02/17 04:00 (Lactulose Liq) 30 ml DAILY PRN PO 10/02/17 04:00 (Protonix Inj) 40 mg Q12H IV PUSH 10/02/17 09:00 10/03/17 10:28 Lactated Ringer's 1,000 ml @ 30 mls/hr Q24H PRN IV 10/02/17 14:00 10/05/17 13:59 Sodium Chloride 500 ml @ 30 mls/hr [id number] PRN IV 10/02/17 14:00 10/05/17 13:59 (Lopressor) 25 mg PER DIEM CLERK PRN PO 10/02/17 14:00 10/05/17 13:59 (Betadine 5% Antisepsis Kit) 1 applic PER DIEM CLERK PRN EACH NARE 10/02/17 14:00 10/05/17 13:59 (Chlorhexidine 2% Cloth) 3 pack PER DIEM CLERK PRN TOPICAL 10/02/17 14:00 10/05/17 13:59 (NovoLIN R INJ) See Protocol Table ... PER DIEM CLERK PRN SQ 10/02/17 14:00 10/05/17 13:59 Piperacillin Sod/ Tazobactam Sod 50 ml @ 100 mls/hr Q6H IV 10/02/17 16:00 10/03/17 10:45 Miscellaneous Information ALL NURSING DEPARTME... UNSCH PRN .XX 10/02/17 16:51 10/03/17 16:50 . Family History The patient's mother from a brain aneurysm. The patient's father of prostate cancer. Family history is also significant for alcoholism and depression . Substance Use Tobacco: Lifetime non-smoker Alcohol: Lifetime nondrinker Prescription med abuse: No history of abuse Illicits: No known use of illicits . Psychosocial History Lifetime non-smoker. The patient was born in [place]. She moved to [place] in 8. 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 The patient was once. Her in 2014. She has 2 children. Her [id number] right next to her. Her son-Ruslan- also lives in the area. She has 4 grandchildren and 3 great-grandchildren. . Spiritual/Cultural Factors Yazdanism and spirituality are quite important to her. The patient has been an active member of the [employer] [facility] [employer] sab[employer] for about 45 years. Her digital asset specialist visits her in the hospital and provide spiritual support. . Living Will: Copy in medical record Health Care Surrogate: Copy in medical record Durable Power of Parach[employer]er: Copy in medical record Date completed: POA (this is a financial POA; not a health care POA); Living Will; and health care surrogate designation were all completed on 08/07/15 . Health Care Surrogate(s): Brittany Yoder (daughter) is the primary health care surrogate. Alternate surrogate is Ruslan Hennessy (son). . Documented care wishes: The patient has completed a living will with language typical of a [place] Living Will . She states she would not want life-prolonging measures if she were found to have a terminal illness, end-stage condition, or persistent vegetative state. . Today's verbally stated goals: Patient is confused and unable to provide her own health care goals/preferences at this time. . Family/friends goals: Daughter confirms that patient would want her condition aggressively treated as it may be entirely reversible. However, the patient has stated that she would not want to be resuscitated for any reason. It is important to the patient that she not be a burden and she does not want to live out her days in a nursing facility. . Ethical and Legal Issues Patient is intermittently confused at this time and is not capacitated to make her own health care decisions. The patient's health care surrogate (daugther) should be included in medical decision making until such time that the confusion clears. . Physical Exam Vital Signs Date Time Temp Pulse Resp B/P (MAP) Pulse Ox O2 Delivery O2 Flow Rate FiO2 10/03/17 12:00 98.4 109 17 117/60 (79) 91 10/03/17 08:00 98.6 112 17 111/57 (75) 90 10/03/17 04:00 99.9 110 20 99/58 (72) 91 10/03/17 01:18 98.1 112 18 97/52 (67) 92 10/02/17 19:30 99.2 107 18 108/54 (72) 92 10/02/17 17:18 103 16 112/55 (74) 93 Nasal Cannula 4 10/02/17 17:09 101 16 105/53 (70) 91 Nasal Cannula 4 10/02/17 17:01 101 16 111/53 (72) 93 Nasal Cannula 4 10/02/17 16:49 98.0 104 16 112/67 (82) 92 Nasal Cannula 4 . Exam CONSTITUTIONAL/GENERAL: This is an adequately nourished patient who appears quite uncomfortable and resistant to answering my questions. TUBES/LINES/DRAINS: Peripheral IV. Nasal cannula oxygen. SKIN: No jaundice, rashes, or lesions. Ecchymoses on upper extremities. No wounds seen anteriorly. Skin temperature appropriate. Not diaphoretic. HEAD: Atraumatic. Normocephalic. EYES: Pupils equal and round and reactive. Extraocular motions intact. No scleral icterus. No injection or drainage. Fundi not examined. ENT: Hearing grossly normal. Nose without bleeding or purulent drainage. Throat without visible erythema, exudates, masses, or lesions. NECK: Trachea midline. Supple, nontender. No palpable thyroid enlargement or nodularity. CARDIOVASCULAR: Regular rhythm, mildly tachycardic, without murmurs, gallops, or rubs. No JVD. Peripheral pulses symmetric. RESPIRATORY/CHEST: Symmetric, unlabored respirations. Clear to auscultation. Breath sounds equal bilaterally. No wheezes, rales, or rhonchi. GASTROINTESTINAL: Abdomen firm and quite distended. Some diffuse tenderness. No hepato-splenomegaly, or palpable masses But difficult to assess due to level of distention. No guarding. Bowel sounds present. GENITOURINARY: Without palpable bladder distension. MUSCULOSKELETAL: Extremities without clubbing, cyanosis, or edema. No joint tenderness or effusion noted. No calf tenderness. No mottling or clubbing. LYMPHATICS: No palpable cervical or supraclavicular adenopathy. NEUROLOGICAL: Easily awakens. Does not want to answer my questions but appears intermittently confused. Motor and sensory grossly within normal limits. Follows a few, simple commands. Moves all extremities. PSYCHIATRIC: No obvious anxiety/depression. No apparent hallucinations or other psychotic thought process. . Diagnostic Tests Laboratory Laboratory Tests Test 10/02/17 02:15 10/02/17 02:30 10/02/17 08:25 10/02/17 12:10 White Blood Count 24.1 TH/MM3 (4.0-11.0) Red Blood Count 4.59 MIL/MM3 (4.00-5.30) Hemoglobin 14.2 GM/DL (11.6-15.3) Hematocrit 43.8 % (35.0-46.0) Mean Corpuscular Volume 95.3 FL (80.0-100.0) Mean Corpuscular Hemoglobin 30.9 PG (27.0-34.0) Mean Corpuscular Hemoglobin Concent 32.4 % (32.0-36.0) Red Cell Distribution Width 16.0 % (11.6-17.2) Platelet Count 470 TH/MM3 (150-450) Mean Platelet Volume 9.0 FL (7.0-11.0) Neutrophils (%) (Auto) 84.7 % (16.0-70.0) Lymphocytes (%) (Auto) 3.1 % (9.0-44.0) Monocytes (%) (Auto) 11.8 % (0.0-8.0) Eosinophils (%) (Auto) 0.2 % (0.0-4.0) Basophils (%) (Auto) 0.2 % (0.0-2.0) Neutrophils # (Auto) 20.4 TH/MM3 (1.8-7.7) Lymphocytes # (Auto) 0.7 TH/MM3 (1.0-4.8) Monocytes # (Auto) 2.9 TH/MM3 (0-0.9) Eosinophils # (Auto) 0.0 TH/MM3 (0-0.4) Basophils # (Auto) 0.0 TH/MM3 (0-0.2) CBC Comment AUTO DIFF Differential Total Cells Counted 100 Neutrophils % (Manual) 73 % (16-70) Band Neutrophils % 11 % (0-6) Lymphocytes % 2 % (9-44) Monocytes % 14 % (0-8) Neutrophils # (Manual) 20.2 TH/MM3 (1.8-7.7) Differential Comment FINAL DIFF MANUAL Platelet Estimate HIGH (NORMAL) Platelet Morphology Comment NORMAL (NORMAL) Blood Urea Nitrogen 26 MG/DL (7-18) Creatinine 1.54 MG/DL (0.50-1.00) Random Glucose 149 MG/DL (74-106) Total Protein 6.8 GM/DL (6.4-8.2) Albumin 2.6 GM/DL (3.4-5.0) Calcium Level 8.9 MG/DL (8.5-10.1) Alkaline Phosphatase 157 U/L (45-117) Aspartate Amino Transf (AST/SGOT) 21 U/L (15-37) Alanine Aminotransferase (ALT/SGPT) 12 U/L (10-53) Total Bilirubin 0.4 MG/DL (0.2-1.0) Sodium Level 135 MEQ/L (136-145) Potassium Level 5.1 MEQ/L (3.5-5.1) Chloride Level 100 MEQ/L (98-107) Carbon Dioxide Level 24.7 MEQ/L (21.0-32.0) Anion Gap 10 MEQ/L (5-15) Estimat Glomerular Filtration Rate 32 ML/MIN (>89) Lipase 93 U/L (73-393) Lactic Acid Level 2.7 mmol/L (0.4-2.0) 1.7 mmol/L (0.4-2.0) 1.7 mmol/L (0.4-2.0) Test 10/03/17 06:09 White Blood Count 21.2 TH/MM3 (4.0-11.0) Red Blood Count 3.87 MIL/MM3 (4.00-5.30) Hemoglobin 12.0 GM/DL (11.6-15.3) Hematocrit 37.0 % (35.0-46.0) Mean Corpuscular Volume 95.7 FL (80.0-100.0) Mean Corpuscular Hemoglobin 31.1 PG (27.0-34.0) Mean Corpuscular Hemoglobin Concent 32.5 % (32.0-36.0) Red Cell Distribution Width 15.9 % (11.6-17.2) Platelet Count 409 TH/MM3 (150-450) Mean Platelet Volume 8.8 FL (7.0-11.0) Neutrophils (%) (Auto) 81.2 % (16.0-70.0) Lymphocytes (%) (Auto) 3.5 % (9.0-44.0) Monocytes (%) (Auto) 15.2 % (0.0-8.0) Eosinophils (%) (Auto) 0.0 % (0.0-4.0) Basophils (%) (Auto) 0.1 % (0.0-2.0) Neutrophils # (Auto) 17.2 TH/MM3 (1.8-7.7) Lymphocytes # (Auto) 0.7 TH/MM3 (1.0-4.8) Monocytes # (Auto) 3.2 TH/MM3 (0-0.9) Eosinophils # (Auto) 0.0 TH/MM3 (0-0.4) Basophils # (Auto) 0.0 TH/MM3 (0-0.2) CBC Comment AUTO DIFF Differential Total Cells Counted 100 Neutrophils % (Manual) 77 % (16-70) Band Neutrophils % 12 % (0-6) Lymphocytes % 2 % (9-44) Monocytes % 9 % (0-8) Neutrophils # (Manual) 18.9 TH/MM3 (1.8-7.7) Differential Comment FINAL DIFF MANUAL Platelet Estimate NORMAL (NORMAL) Platelet Morphology Comment NORMAL (NORMAL) Ovalocytes 1+ (NORMAL) Acanthocytes 1+ (NORMAL) Blood Urea Nitrogen 45 MG/DL (7-18) Creatinine 2.76 MG/DL (0.50-1.00) Random Glucose 106 MG/DL (74-106) Total Protein 6.1 GM/DL (6.4-8.2) Albumin 2.1 GM/DL (3.4-5.0) Calcium Level 8.6 MG/DL (8.5-10.1) Alkaline Phosphatase 97 U/L (45-117) Aspartate Amino Transf (AST/SGOT) 14 U/L (15-37) Alanine Aminotransferase (ALT/SGPT) 9 U/L (10-53) Total Bilirubin 0.5 MG/DL (0.2-1.0) Sodium Level 139 MEQ/L (136-145) Potassium Level 5.5 MEQ/L (3.5-5.1) Chloride Level 106 MEQ/L (98-107) Carbon Dioxide Level 22.7 MEQ/L (21.0-32.0) Anion Gap 10 MEQ/L (5-15) Estimat Glomerular Filtration Rate 16 ML/MIN (>89) . Result Diagram: 10/03/17 0609 10/03/17 0609 Microbiology Microbiology Date/Time Source Procedure Growth Status 10/02/17 18:55 Blood Peripheral Aerobic Blood Culture - Preliminary NO GROWTH IN 1 DAY Resulted 10/02/17 18:55 Blood Peripheral Anaerobic Blood Culture - Preliminary NO GROWTH IN 1 DAY Resulted 10/02/17 18:25 Blood Peripheral Aerobic Blood Culture - Preliminary NO GROWTH IN 1 DAY Resulted 10/02/17 18:25 Blood Peripheral Anaerobic Blood Culture - Preliminary NO GROWTH IN 1 DAY Resulted . Imaging Last Impressions Gall Bladder Ultrasound 10/02/17 0000 Signed Impressions: Service Date/Time: Monday, October 02, 2017 02:32 - CONCLUSION: 1. Common bile duct dilated 16 mm with probable choledocholithiasis. 2. Distended gallbladder with sludge, gallbladder wall thickening and pericholecystic fluid. 3. Mild ascites. Christiano Gonsales MD GI Procedure 10/02/17 0000 Signed Impressions: Service Date/Time: Monday, October 02, 2017 15:48 - CONCLUSION: ERCP as above. Salvador Boyer MD Abdomen X-Ray 10/02/17 0000 Signed Impressions: Service Date/Time: Monday, October 02, 2017 02:02 - CONCLUSION: 1. No acute findings. Christiano Gonsales MD . Procedures ERCP 10/02/17 . Patient/Family Conference Present at Family Conference: Daughter . Family Conference Time (mins): 50 (35 minutes via phone and then 15 minutes in person. ) Family Conference Location: Bedside, Telephone Issues Discussed: * Palliative care role, purpose, approach * Additional medical, psychosocial, and spiritual history * Patients general health, functional status, and cognitive changes in the months leading up to the current hospitalization * Family understanding of the current medical problems * Family understanding of prognosis * Patients goals of care as best understood from advance directives and/or conversations and/or values * Current medical treatment options and benefits/burdens of those options * Questions answered to the best of my ability * Palliative care contact information provided . Assessment and Plan Disease Oriented Problem List: (1) Choledocholithiasis Comment: Has now undergone ERCP with sphincterotomy. (2) SMITHA (acute kidney injury) Comment: Patient was using a fair amount of ibuprofen prior to this admission. . (3) Pelvic fracture (4) Upper GI bleed Comment: Vomitus was quite dark at one-point highly suggestive of hematemesis. (5) Frequent falls (6) Gastritis Comment: EGD revealed areas of erythema without emilio ulcer or erosion. (7) Hiatal hernia (8) Hypoalbuminemia Symptom Scale: (1) Pain 0-10 Scale: Unable to quantify (2) Confusion 0-10 Scale: Unable to quantify Comment: This is probably a multi-factorial delirium resulting from medication ; infection; unfamiliar environment; time disorientation; etc. . Pertinent Non-Medical Issues Psychosocial: Primary psychosocial support comes from both her son and daughter who lives locally. Spiritual: Long-time member of the [employer]. Yazdanism and spirituality play an important part in her life. Her own digital asset specialist visits and provide spiritual support. Legal: Patient has completed a living will and designation of healthcare surrogate. Ethical issues impacting care: Patient is intermittently confused. At the very least, decision making should be in the form of shared decisions with her healthcare surrogate. . Important Contacts Brittany Yoder (daughter and primary health care surrogate) [phone] Ruslan Hennessy (son and alternate health care surrogate) [phone] . Prognosis On the one hand, the patient had been doing quite well and living mostly independently up until a few months ago. However, since her initial compression fracture she has had a difficult time getting back to baseline. With her pelvic fracture, she had further setbacks by complications of urinary tract infection and C. difficile colitis. Just that she was beginning to recover and make progress in rehab, she develops now what appears to be choledocholithiasis. If the patient's abdominal symptoms are all due to choledocholithiasis, if the sphincterotomy has removed all blockages, and if the antibiotics are curing any current infection, and the patient has a reasonable chance of recovering, completing her rehab, and getting home. If there are further complications or setbacks, I will become more concerned that we are witnessing an ongoing downhill trajectory. We will probably no more in a couple of days. , Code Status: No Code Plan == Code Status: NO CODE. Pt is confused, but per the health care surrogate, the patient has repeatedly said she does not want to be resuscitated under any circumstances. == Decision making: Patient is now having intermittent confusion. Legal health care surrogate is the patient's daughter -- Brittany Yoder. Given the intermittent confusion, would include the health care surrogate in decisions even if the patient appears cognitively intact until such time as the intermittent confusion clears. == Goals of medical treatment: Patient would want the current problem aggressively treated unless it becomes apparent that this condition is not reversible or that treatments would be burdensome. Patient has made it clear that she does not want to be "a burden" and does not want to live out her days in a nursing facility. Daughter does not believe she would want hemodialysis under any circumstances == Symptoms * Pain: Patient has had some longstanding back pain from osteoarthritis. She had some sort of spinal fracture a few months ago requiring acetaminophen with codeine. At the end of August she fell and suffered a pelvic fracture. She comes in with abdominal pain. Patient is not able to quantify or qualify pain for me. Per nursing notes, pain has been as high as a level 8. Patient currently has an order for 1-2 mg of iv morphine q 3 hours prn. Note that the opiates are likely to metabolize slowly as her renal function declines. Given evidence of possible delirium already, may want to consider hydromorphone or even fentanyl. * Confusion: This is probably a multi-factorial delirium resulting from medication; infection; unfamiliar environment; time disorientation; etc. this will hopefully resolve as the choledocholithiasis and possible associated infection improved. No further recommendations at this time. == Patient is s/p hemithyroidectomy and is normally on thyroid replacement. May want to consider re-starting levothyroxine when she is able to take PO. == Patient's renal function is certainly a concern. From the medication reconciliation it appears she was on scheduled ibuprofen at 1800 mg per day. We will probably want to avoid getting her back on scheduled ibuprofen. == Palliative care will continue to follow to assist with symptom management and to further clarify goals of medical treatment as the clinical course evolves. . Time Spent Total Floor Time (mins): 90 (Total fluoroscopy time included chart review; patient examination; discussion in person with hospitalist; above-referenced telephone conversation with healthcare surrogate; above-referenced in person discussion with healthcare surrogate; review of advance directives; documentation.) Face to Face Time (mins): 10 >50% Counseling/Coord of Care: Yes Thank you for the opportunity to participate in the care of Ms. eHnnessy. . Attestation To help prompt me to consider important information that might be impacting today's encounter and assessment, information from prior notes written by myself or my colleagues may have been "brought forward" into today's note. My signature on this note, however, is an attestation that I personally performed the exam, history, and/or decision-making noted today, and, unless otherwise indicated, the interactions with patient, family, and staff as well as the review of records all occurred today. I also attest that the listed assessment and stated plan reflect my best clinical judgment today based on the combination of historical information, prior notes, and today's exam/ interactions. When time spent is documented, it refers only to time spent today by the signer, or if indicated, combined time spent today by collaborating physician/nurse practitioner.\\ . Wili Lam MD Oct 03, 2017 13:55
--- NOTE | 2017-10-03 14:21 | HHI.GIFU ---
Subjective Remarks Pt resting in bed in NAD, daughter at bedside. per daughter, up until 3 wks ago she was lucid and driving. 3 wks ago she had a fall and has been somewhat confused since. Daughter reports pt has not urinated in 2 days. Pt indicates she is still having abd pain. (Odilia Reyes) Objective Vitals I&O Vital Signs Date Time Temp Pulse Resp B/P (MAP) Pulse Ox O2 Delivery O2 Flow Rate FiO2 10/03/17 12:00 98.4 109 17 117/60 (79) 91 10/03/17 08:00 98.6 112 17 111/57 (75) 90 10/03/17 04:00 99.9 110 20 99/58 (72) 91 10/03/17 01:18 98.1 112 18 97/52 (67) 92 10/02/17 19:30 99.2 107 18 108/54 (72) 92 10/02/17 17:18 103 16 112/55 (74) 93 Nasal Cannula 4 10/02/17 17:09 101 16 105/53 (70) 91 Nasal Cannula 4 10/02/17 17:01 101 16 111/53 (72) 93 Nasal Cannula 4 10/02/17 16:49 98.0 104 16 112/67 (82) 92 Nasal Cannula 4 I/O 10/02/17 10/02/17 10/02/17 10/03/17 10/03/17 10/03/17 07:00 15:00 23:00 07:00 15:00 23:00 Intake Total 1260 ml 1100 ml 500 ml 0 ml Balance 1260 ml 1100 ml 500 ml 0 ml Intake Oral 210 ml 50 ml 0 ml IV Total 1050 ml 1100 ml 50 ml Other 400 ml # Voids 1 # Bowel Movements 0 Laboratory Laboratory Tests Test 10/03/17 06:09 White Blood Count 21.2 Red Blood Count 3.87 Hemoglobin 12.0 Hematocrit 37.0 Mean Corpuscular Volume 95.7 Mean Corpuscular Hemoglobin 31.1 Mean Corpuscular Hemoglobin Concent 32.5 Red Cell Distribution Width 15.9 Platelet Count 409 Mean Platelet Volume 8.8 Neutrophils (%) (Auto) 81.2 Lymphocytes (%) (Auto) 3.5 Monocytes (%) (Auto) 15.2 Eosinophils (%) (Auto) 0.0 Basophils (%) (Auto) 0.1 Neutrophils # (Auto) 17.2 Lymphocytes # (Auto) 0.7 Monocytes # (Auto) 3.2 Eosinophils # (Auto) 0.0 Basophils # (Auto) 0.0 CBC Comment AUTO DIFF Differential Total Cells Counted 100 Neutrophils % (Manual) 77 Band Neutrophils % 12 Lymphocytes % 2 Monocytes % 9 Neutrophils # (Manual) 18.9 Differential Comment FINAL DIFF MANUAL Platelet Estimate NORMAL Platelet Morphology Comment NORMAL Ovalocytes 1+ Acanthocytes 1+ Blood Urea Nitrogen 45 Creatinine 2.76 Random Glucose 106 Total Protein 6.1 Albumin 2.1 Calcium Level 8.6 Alkaline Phosphatase 97 Aspartate Amino Transf (AST/SGOT) 14 Alanine Aminotransferase (ALT/SGPT) 9 Total Bilirubin 0.5 Sodium Level 139 Potassium Level 5.5 Chloride Level 106 Carbon Dioxide Level 22.7 Anion Gap 10 Estimat Glomerular Filtration Rate 16 Date/Time Source Procedure Growth Status 10/02/17 18:55 Blood Peripheral Aerobic Blood Culture - Preliminary NO GROWTH IN 1 DAY Resulted 10/02/17 18:55 Blood Peripheral Anaerobic Blood Culture - Preliminary NO GROWTH IN 1 DAY Resulted Imaging Last Impressions Gall Bladder Ultrasound 10/02/17 0000 Signed Impressions: Service Date/Time: Monday, October 02, 2017 02:32 - CONCLUSION: 1. Common bile duct dilated 16 mm with probable choledocholithiasis. 2. Distended gallbladder with sludge, gallbladder wall thickening and pericholecystic fluid. 3. Mild ascites. Christiano Gonsales MD GI Procedure 10/02/17 0000 Signed Impressions: Service Date/Time: Monday, October 02, 2017 15:48 - CONCLUSION: ERCP as above. Salvador Boyer MD Abdomen X-Ray 10/02/17 0000 Signed Impressions: Service Date/Time: Monday, October 02, 2017 02:02 - CONCLUSION: 1. No acute findings. Christiano Gonsales MD Physical Exam HEENT: PERRL; normocephalic; atraumatic; no jaundice. CHEST: CTA CARDIAC: RRR ABDOMEN: asymmetrical, distended, diffusely TTP, soft; bowel sounds are present in all four quadrants. EXTREMITIES: No clubbing, cyanosis, or edema. SKIN: Normal; no rash; no jaundice. WET ROLLER: confused (Odilia Reyes HISTORIC SITE ADMINISTRATOR) Assessment and Plan Plan ASSESSMENT - abd pain, abnormal imaging - poss choledocholithiasis. CT 10/01 showed intra and extrahepatic ductal dilatation, no filling defect or mass, mild gb distention, concerning for mets dz pelvis , poss mild ileus. KUB no acute findings. US showed CBD dilatated 16mm, suggestive choledocholithiasis and cholecystitis. Isolated elevation ALP. - ?hematemesis - report of dark emesis, dark material seen on lips and gown. Per bottle packerinspector aide reported material is dark green. HH WNL currently. - leukocytosis 10/03/17 s/p EGD and ERCP with sphincterotomy and balloon extraction yesterday, findings of hiatal hernia, gastritis, choledocholithiasis. WBC lower today. + fever, abd distention, pain. palliative care now following, no code status. hem/onc following- lpelvis lesion likely old fx. renal function worsening. cause of distention unclear, bladder scan pending. US did show moderate free fluid around liver. PLAN - ok to feed from GI standpoint - CT abd with contrast when renal function allows - await bladder scan - monitor labs - supportive care pt seen by myself and Dr Forman and this note is on his behalf (Odilia Reyes) Physician Comments Seen and examined with HISTORIC SITE ADMINISTRATOR, more abdominal distension and pain. Renal scan showed 375 cc of urine. Foleys placed with no improvement in pain. CT abd/ pelvis with po contrast. Renal consult. (Kasandra Forman MD) Odilia Reyes Oct 03, 2017 14:21 Kasandra Froman MD Oct 03, 2017 20:14
--- NOTE | 2017-10-03 14:59 | PD.ONC.PN ---
Subjective Subjective Remarks T-max 99.9 this a.m. Patient confused Family members at bedside state they are concerned she has not been urinating Objective Data Date Time Temp Pulse Resp B/P (MAP) Pulse Ox O2 Delivery O2 Flow Rate FiO2 10/03/17 12:00 98.4 109 17 117/60 (79) 91 10/03/17 08:00 98.6 112 17 111/57 (75) 90 10/03/17 04:00 99.9 110 20 99/58 (72) 91 10/03/17 01:18 98.1 112 18 97/52 (67) 92 10/02/17 19:30 99.2 107 18 108/54 (72) 92 10/02/17 17:18 103 16 112/55 (74) 93 Nasal Cannula 4 10/02/17 17:09 101 16 105/53 (70) 91 Nasal Cannula 4 10/02/17 17:01 101 16 111/53 (72) 93 Nasal Cannula 4 10/02/17 16:49 98.0 104 16 112/67 (82) 92 Nasal Cannula 4 10/03/17 10/03/17 10/03/17 07:00 15:00 23:00 Intake Total 0 ml Balance 0 ml Result Diagram: 10/03/17 0609 10/03/17 0609 Laboratory Results Laboratory Tests Test 10/03/17 06:09 White Blood Count 21.2 TH/MM3 Red Blood Count 3.87 MIL/MM3 Hemoglobin 12.0 GM/DL Hematocrit 37.0 % Mean Corpuscular Volume 95.7 FL Mean Corpuscular Hemoglobin 31.1 PG Mean Corpuscular Hemoglobin Concent 32.5 % Red Cell Distribution Width 15.9 % Platelet Count 409 TH/MM3 Mean Platelet Volume 8.8 FL Neutrophils (%) (Auto) 81.2 % Lymphocytes (%) (Auto) 3.5 % Monocytes (%) (Auto) 15.2 % Eosinophils (%) (Auto) 0.0 % Basophils (%) (Auto) 0.1 % Neutrophils # (Auto) 17.2 TH/MM3 Lymphocytes # (Auto) 0.7 TH/MM3 Monocytes # (Auto) 3.2 TH/MM3 Eosinophils # (Auto) 0.0 TH/MM3 Basophils # (Auto) 0.0 TH/MM3 CBC Comment AUTO DIFF Differential Total Cells Counted 100 Neutrophils % (Manual) 77 % Band Neutrophils % 12 % Lymphocytes % 2 % Monocytes % 9 % Neutrophils # (Manual) 18.9 TH/MM3 Differential Comment FINAL DIFF MANUAL Platelet Estimate NORMAL Platelet Morphology Comment NORMAL Ovalocytes 1+ Acanthocytes 1+ Blood Urea Nitrogen 45 MG/DL Creatinine 2.76 MG/DL Random Glucose 106 MG/DL Total Protein 6.1 GM/DL Albumin 2.1 GM/DL Calcium Level 8.6 MG/DL Alkaline Phosphatase 97 U/L Aspartate Amino Transf (AST/SGOT) 14 U/L Alanine Aminotransferase (ALT/SGPT) 9 U/L Total Bilirubin 0.5 MG/DL Sodium Level 139 MEQ/L Potassium Level 5.5 MEQ/L Chloride Level 106 MEQ/L Carbon Dioxide Level 22.7 MEQ/L Anion Gap 10 MEQ/L Estimat Glomerular Filtration Rate 16 ML/MIN Culture Results Microbiology Date/Time Source Procedure Growth Status 10/02/17 18:55 Blood Peripheral Aerobic Blood Culture - Preliminary NO GROWTH IN 1 DAY Resulted 10/02/17 18:55 Blood Peripheral Anaerobic Blood Culture - Preliminary NO GROWTH IN 1 DAY Resulted 10/02/17 18:25 Blood Peripheral Aerobic Blood Culture - Preliminary NO GROWTH IN 1 DAY Resulted 10/02/17 18:25 Blood Peripheral Anaerobic Blood Culture - Preliminary NO GROWTH IN 1 DAY Resulted Administered Medications Medications (Trade) Dose Ordered Sig/Trey Route PRN Reason Start Time Stop Time Status Last Admin Dose Admin Sodium Chloride 1,000 ml @ 100 mls/hr Q10H IV 10/02/17 03:56 10/03/17 10:28 Sodium Chloride (NS Flush) 2 ml BID IV FLUSH 10/02/17 09:00 10/03/17 01:23 Ondansetron HCl (Zofran Inj) 4 mg Q6H PRN IVP NAUSEA OR VOMITING 10/02/17 04:00 10/02/17 21:35 Morphine Sulfate (Morphine Inj) 1 mg Q3H PRN IV PUSH Pain 3-5 10/02/17 04:00 10/03/17 10:45 Morphine Sulfate (Morphine Inj) 2 mg Q3H PRN IV PUSH Pain 6-10 10/02/17 04:00 10/02/17 04:31 Senna/Docusate Sodium (Stella-Colace) 1 tab BID PO 10/02/17 09:00 10/02/17 21:35 Pantoprazole Sodium (Protonix Inj) 40 mg Q12H IV PUSH 10/02/17 09:00 10/03/17 10:28 Piperacillin Sod/ Tazobactam Sod 50 ml @ 100 mls/hr Q6H IV 10/02/17 16:00 10/03/17 10:45 Objective Remarks GENERAL: Obese older female resting in bed in no obvious distress SKIN: Warm and dry. HEAD: Normocephalic. EYES: No injection or drainage. NECK: Supple, trachea midline. CARDIOVASCULAR: Regular rate and rhythm. RESPIRATORY: Clear anteriorly. Breathing unlabored at rest. GASTROINTESTINAL: Abdomen protuberant. Tender to palpation. EXTREMITIES: No cyanosis, or edema. NEUROLOGICAL: Confused. Patient is short winded with speech. Assessment/Plan Problem List: (1) Leukocytosis ICD Codes: D72.829 - Elevated white blood cell count, unspecified Plan: --Likely due to infection --Monitor CBC --Patient had EGD with ERCP and sphincterectomy on 10/02 with findings consistent with hiatal hernia, gastritis and choledocholithiasis (2) Pelvic fracture ICD Codes: S32.9XXA - Fracture of unspecified parts of lumbosacral spine and pelvis, initial encounter for closed fracture Plan: --The patient had a CT abdomen pelvis on apparent destructive changes involving the left superior pubic rami concerning for metastatic disease on 10/01, however this was discussed with the radiologist and felt that the lesion noted was due to a fall and fracture from August of this year. --No further workup is necessary at this time Assessment 87-year-old female admitted with choledocholithiasis found to have a suspicious lesion on the left superior pubic rami concerning for metastatic disease Plan 1. We will have nurses get a bladder scan to evaluate for urinary retention 2. Insert Eaton catheter for greater than 350 mL residual urine 3. Monitor CBC Attending Statement The exam, history, and the medical decision-making described in the above note were completed with the assistance of the mid-level provider. I reviewed and agree with the findings presented. I attest that I had a [id number] encounter with the patient on the same day, and personally performed and documented my assessment and findings in the medical record. PT is confused. Denies pelvic pain. Had ERCP and sphincterotomy yesterday. Still has leukocytosis due to leukemoid reaction. Pelvic bone lesion noted on CT c/w old traumatic fracture. Leena Christine Oct 03, 2017 14:59 Jeremy Oshea MD Oct 03, 2017 17:14
[2017-10-03 16:00] VITALS: BP 125/60; PULSE 112; RESP 17; TEMP 98.3; O2SAT 90
[2017-10-03] MEDS ORDERED: DIATRIZOATE MEGLUM/DIATRIZOATE SOD 9 ML CUP PO ONE (19:15)
[2017-10-03 20:00] VITALS: BP 113/57; PULSE 125; RESP 20; TEMP 97.6; O2SAT 92
[2017-10-03 23:50] LABS: BILIRUBIN, URINE NEG (NEG); BLOOD, URINE SMALL (NEG); GLUCOSE,URINE NEG (NEG); KETONE, URINE NEG (NEG); NITRITE,URINE NEG (NEG); PH, URINE 5.5 (5.0-8.5); SQUAMOUS EPITHELIAL CELL URINE 10 /hpf (0-5); URINE COLOR YELLOW (YELLW/STRAW); URINE LEUKOCYTE ESTERASE SMALL (NEG)
== END 2017-10-03 23:35 | disposition expired | DRG 444 ==
LOC: NEPE 00:50 → NEDA 03:50 → NEPFCDU 05:21 → N07A 10-03 00:46
PROVIDERS: ADMIT Internal Medicine; ATTEND Internal Medicine
PROC: 0F798ZZ Dilation of Common Bile Duct, Via Natural or Artificial Opening Endoscopic (ICD-10-PCS; principal; 2017-10-02 15:50)
PROC: 0DJ08ZZ Inspection of Upper Intestinal Tract, Via Natural or Artificial Opening Endoscopic (ICD-10-PCS; 2017-10-02 15:50)
DX: K80.41 Calculus of bile duct with cholecystitis, unspecified, with obstruction (principal); K29.71 Gastritis, unspecified, with bleeding; N17.9 Acute kidney failure, unspecified; E87.2 Acidosis; I95.9 Hypotension, unspecified; K56.7 Ileus, unspecified; F05 Delirium due to known physiological condition; R15.9 Full incontinence of feces; I10 Essential (primary) hypertension; E88.09 Other disorders of plasma-protein metabolism, not elsewhere classified; K58.9 Irritable bowel syndrome, unspecified; E78.5 Hyperlipidemia, unspecified; E89.0 Postprocedural hypothyroidism; D72.823 Leukemoid reaction; K44.9 Diaphragmatic hernia without obstruction or gangrene; D72.825 Bandemia; S32.512D Fracture of superior rim of left pubis, subsequent encounter for fracture with routine healing; M19.90 Unspecified osteoarthritis, unspecified site; M81.0 Age-related osteoporosis without current pathological fracture; F32.9 Major depressive disorder, single episode, unspecified; F41.9 Anxiety disorder, unspecified; R29.6 Repeated falls; W19.XXXD Unspecified fall, subsequent encounter; Z66 Do not resuscitate; Z96.653 Presence of artificial knee joint, bilateral
CPT/HCPCS: 74019; 74330; 76705; 80053; 81001; 83605; 83690; 85007; 85027; 87040; 87086; 93005; 96361; 96374; 96375; C1769; C9113; J0330; J1610; J2270; J2370; J2405; J2543; J3010; J7030; J7120; Q9963